=== PATIENT | female | born 1950 | race Caucasian/White ===

== ENCOUNTER 2017-12-17 10:03 | Outpatient (REF) | payer BC, SELFPAY ==
[2017-12-17 20:54] LABS: TSH 0.47 uIU/mL (0.358-3.74)
== END 2017-12-17 10:23 ==
LOC: NCHCN 10:03
PROVIDERS: PCP Physician Assistant Medical; Visit Provider Physician Assistant Medical
DX: E03.9 Hypothyroidism, unspecified (principal)
CPT/HCPCS: 84443

== ENCOUNTER 2018-02-25 18:54 | Outpatient (REF) | payer BC, SELFPAY ==
[2018-02-25 20:38] LABS: Abs Immature Grans 0.01 k/cumm (0.0-0.09); Absolute Basophil Count 0.02 k/cumm (0.0-0.2); Absolute Eosinophil Count 0.17 k/cumm (0.0-0.7); Absolute Lymphocyte Count 2.68 k/cumm (1.2-3.4); Absolute Monocyte Count 0.63 k/cumm (0.11-0.7); Absolute Neutrophil Count 3.42 k/cumm (1.2-6.7); Basophils % 0.3; Eosinophils % 2.5; HCT 39.1 % (36.0-46.0); HGB 12.9 g/dL (12.0-15.5); Immature Grans % 0.1; Lymphocytes % 38.7; Mean Corpuscular Hemoglobin 30.6 pg (27.0-33.0); Mean Corpuscular Volume 92.9 fL (80-95); Mean Platelet Volume 10.2 fL (8.0-11.0); Monocytes % 9.1; Neutrophils % 49.3; Platelet Count 306 x1000/uL (130-400); RBC 4.21 m/cumm (4.00-5.20); RBC Distribution Width 12.3 % (11.7-14.6); White Blood Cell Count 6.93 k/cumm (4.4-10.8)
[2018-02-25 20:51] LABS: ALT 32 U/L (12-78); AST 23 U/L (15-37); Albumin 3.8 g/dL (3.4-5.0); Alkaline Phosphatase 81 U/L (46-116); BUN 10 mg/dL (7-18); Bilirubin, Total 0.3 mg/dL (0.2-1.0); CREATININE 0.74 mg/dL (0.55-1.02); Calcium 9.4 mg/dL (8.5-10.1); Chloride 102 mmol/L (98-107); Glucose 87 mg/dL (70-100); Potassium 3.8 mmol/L (3.5-5.1); Sodium 141 mmol/L (136-145); Total Protein 6.6 g/dL (6.4-8.2)
== END 2018-02-25 19:14 ==
LOC: NCHCN 18:54
PROVIDERS: PCP Physician Assistant Medical; Visit Provider Nurse Practitioner Family
DX: R53.83 Other fatigue (principal); F32.9 Major depressive disorder, single episode, unspecified
CPT/HCPCS: 80053; 85025

== ENCOUNTER 2018-09-15 09:23 | Outpatient (REF) | payer BC, SELFPAY ==
[2018-09-15 20:30] LABS: ALT 26 U/L (12-78); AST 23 U/L (15-37); Anion Gap 7.8 mmol/L (3-11); BUN 9 mg/dL (7-18); CO2 29.2 mmol/L (21.0-32.0); CREATININE 0.63 mg/dL (0.55-1.02); Calcium 9.1 mg/dL (8.5-10.1); Calculated LDL 95; Chloride 100 mmol/L (98-107); Cholesterol 198 mg/dL (50-200); Glucose 84 mg/dL (70-100); HDL Cholesterol 92 mg/dL (40-60); Potassium 3.7 mmol/L (3.5-5.1); Sodium 137 mmol/L (136-145); TSH 0.54 uIU/mL (0.358-3.74); Triglyceride 55 mg/dL (30-150)
[2018-09-15 20:42] LABS: Creatine Kinase 86 U/L (26-192)
== END 2018-09-15 09:43 ==
LOC: NCHCN 09:23
PROVIDERS: PCP Physician Assistant Medical; Visit Provider Nurse Practitioner Family
DX: E03.9 Hypothyroidism, unspecified (principal); R56.9 Unspecified convulsions; E78.5 Hyperlipidemia, unspecified; I10 Essential (primary) hypertension; C43.9 Malignant melanoma of skin, unspecified
CPT/HCPCS: 80048; 80061; 82550; 83721; 84443; 84450; 84460

== ENCOUNTER 2019-09-02 10:21 | Outpatient (REF) | payer BC, SELFPAY ==
[2019-09-02 20:28] LABS: ALT 28 U/L (14-59); AST 25 U/L (15-37); Anion Gap 9.5 mmol/L (3-11); BUN 12 mg/dL (7-18); CO2 27.5 mmol/L (21.0-32.0); CREATININE 0.79 mg/dL (0.55-1.02); Calculated LDL 120 mg/dL (<100); Chloride 102 mmol/L (98-107); Cholesterol 226 mg/dL (<200); Glucose 82 mg/dL (74-106); HDL Cholesterol 93 mg/dL (40-60); Potassium 4.4 mmol/L (3.5-5.1); Sodium 139 mmol/L (136-145); TSH 0.51 uIU/mL (0.36-3.74); Triglyceride 65 mg/dL (<150)
[2019-09-02 20:53] LABS: Creatine Kinase 79 U/L (26-192); Uric Acid 3.6 mg/dL (2.6-6.0)
== END 2019-09-02 10:41 ==
LOC: NCHCN 10:21
PROVIDERS: PCP Physician Assistant Medical; Visit Provider Nurse Practitioner Family
DX: I10 Essential (primary) hypertension (principal); F41.9 Anxiety disorder, unspecified; F32.9 Major depressive disorder, single episode, unspecified; M25.511 Pain in right shoulder; M25.551 Pain in right hip
CPT/HCPCS: 80048; 80061; 82550; 84443; 84450; 84460; 84550

== ENCOUNTER 2019-10-25 11:33 | Outpatient (REF) | payer BC, SELFPAY ==
[2019-10-25 19:55] LABS: ALT 14 U/L (14-59); AST 15 U/L (15-37); HDL Cholesterol 97 mg/dL (40-60); LDL CHOLESTEROL 94 mg/dL (<100)
[2019-10-25 20:06] LABS: Creatine Kinase 59 U/L (26-192)
== END 2019-10-25 11:53 ==
LOC: NCHCN 11:33
PROVIDERS: PCP Physician Assistant Medical; Visit Provider Nurse Practitioner Family
DX: E78.5 Hyperlipidemia, unspecified (principal); I10 Essential (primary) hypertension
CPT/HCPCS: 82550; 83721; 83718; 84450; 84460

== ENCOUNTER 2020-08-17 09:10 | Outpatient (REF) | payer BC, SELFPAY ==
[2020-08-17 15:51] LABS: ALT 22 U/L (14-59); AST 17 U/L (15-37); Anion Gap 8.3 mmol/L (3-11); BUN 8 mg/dL (7-18); CO2 28.7 mmol/L (21.0-32.0); CREATININE 0.8 mg/dL (0.55-1.02); Calcium 8.8 mg/dL (8.5-10.1); Calculated LDL 107 mg/dL (<100); Chloride 101 mmol/L (98-107); Cholesterol 225 mg/dL (<200); Glucose 86 mg/dL (74-106); HDL Cholesterol 108 mg/dL (40-60); Potassium 4.2 mmol/L (3.5-5.1); Sodium 138 mmol/L (136-145); TSH 0.61 uIU/mL (0.36-3.74); Triglyceride 50 mg/dL (<150)
[2020-08-17 16:03] LABS: Creatine Kinase 88 U/L (26-192)
== END 2020-08-17 09:11 | disposition home or self-care (01) ==
LOC: NCHCN 09:10
PROVIDERS: PCP Physician Assistant Medical; Visit Provider Nurse Practitioner Family
DX: E78.5 Hyperlipidemia, unspecified (principal); I10 Essential (primary) hypertension; E03.9 Hypothyroidism, unspecified
CPT/HCPCS: 80048; 80061; 82550; 84443; 84450; 84460

== ENCOUNTER 2020-12-04 15:05 | Outpatient (REF) | payer MEDICARE, SELFPAY | END 2020-12-04 15:06 | disposition home or self-care (01) | LOC: LBN 15:05 | PROVIDERS: PCP Physician Assistant Medical; Visit Provider Nurse Practitioner Family | DX: R10.30 Lower abdominal pain, unspecified (principal) | CPT/HCPCS: 87077; 87086; 87186 ==

== ENCOUNTER 2020-12-04 21:06 | Outpatient (CLI) | payer MEDICARE, SELFPAY ==
[2020-12-04 11:45] LABS: Abs Immature Grans 0.04 10^3/uL (0.0-0.06); Absolute Basophil Count 0.02 10^3/uL (0.0-0.2); Absolute Lymphocyte Count 1.97 10^3/uL (1.2-3.4); Absolute Monocyte Count 0.89 10^3/uL (0.1-0.8); Basophils % 0.2; Eosinophils % 0.6; HCT 38.9 % (36.0-46.0); HGB 12.7 g/dL (11.2-15.7); Immature Grans % 0.4; Lymphocytes % 18.2; MCH 30.5 pg (27.0-33.0); MCHC 32.6 % (32.0-36.0); MCV 93.3 fL (80-95); MPV 9.8 fL (8.0-11.0); Monocytes % 8.2; Neutrophils % 72.4; Nucleated RBC 0 %; Platelet Count 264 10^3/uL (130-400); RBC 4.17 10^6/uL (3.93-5.22); RDW 12.8 % (11.7-14.6); WBC 10.85 10^3/uL (4.4-10.8)
[2020-12-04 11:47] LABS: Absolute Eosinophil Count 0.07 10^3/uL (0.0-0.7); Absolute Neutrophil Count 7.86 10^3/uL (1.2-6.7)
[2020-12-04 12:02] LABS: ALT 22 U/L (14-59); AST 18 U/L (15-37); Albumin 3.5 g/dL (3.4-5.0); Alkaline Phosphatase 82 U/L (46-116); Anion Gap 7.4 mmol/L (3-11); BUN 11 mg/dL (7-18); Bilirubin, Total 1.2 mg/dL (0.2-1.0); CO2 29.6 mmol/L (21.0-32.0); CREATININE 0.8 mg/dL (0.55-1.02); Chloride 102 mmol/L (98-107); Glucose 93 mg/dL (74-106); Potassium 3.5 mmol/L (3.5-5.1); Sodium 139 mmol/L (136-145)
--- NOTE | 2020-12-04 13:44 | DI.CT_ITS ---
Exam(s) CT ABDOMEN PELVIS W EXAM: CT ABDOMEN PELVIS W CLINICAL HISTORY: ABD PAIN LOWER R10.30 DIVERTICULOSIS K57.90. TECHNIQUE: Imaging Protocol: Axial computed tomography images with coronal and sagittal reformatted images were created and reviewed CONTRAST MATERIAL: Intravenous: Omnipaque 350 Contrast volume:100 ml Oral: yes COMPARISON: CT CHEST FOR PE, ABD PELVIS W from 07/02/2017 FINDINGS: ABDOMEN: Lung Bases: Normal where visualized. Liver: Normal density. Innumerable cysts. Gallbladder and biliary tract: No radiodense calculus or dilation. Pancreas: Normal density, no abnormal calcifications or inflammatory process. Spleen: Normal. Kidneys: Normal size, contour and axis. No radiodense stones or obstructive uropathy. Tiny renal cys ts. No masses seen. Adrenal glands: No masses seen. Abdominal Aorta: Abdominal portion non-dilated. PELVIS: Bladder: No gross wall thickening. No calculi.No focal mass. Bowel: The bowel is well opacified with the oral contrast. Diverticulosis is noted of the sigmoid. There is a focal area of wall thickening and surrounding inflammation in the mid to distal sigmoid consistent with diverticulitis. There is no evidence of perforation or abscess. The appendix is nor mal. No small bowel dilatation. Peritoneal cavity: No ascites, collection or mesenteric inflammatory response. Bones: Degenerative changes greatest at L 2 3 and L5-S1. Reproductive organs: Within normal limits. Lymph nodes: Unremarkable. Impression: Sigmoid diverticulitis. No evidence perforation or abscess. RADIATION DOSE DELIVERED: 787.55mGy.cm Total DLP DATA REPOSITORY: All CT scans at this facility are submitted to the National Radiology Data Registry (NRDR) Dose Index Registry (DIR) with the [employer] (ACR). RADIATION OPTIMIZATION: All CT scans at this facility use at least one of these dose optimization te chniques: automated exposure control; mA and/or kV adjustment per patient size (includes targeted exa ms where dose is matched to clinical indication); or iterative reconstruction.
[2020-12-04] MEDS: Omnipaque 350 MG/ML 100 ML BTL IJ (13:48)
[2020-12-04] MEDS: Normal Saline Flush 10 ML SYR IVP (13:50)
[2020-12-04] MEDS: Breeza Beverage 473 ML BTL PO ×2 (13:51→13:52)
[2020-12-04] MEDS: Omnipaque 350 MG/ML 50 ML BTL PO (13:52)
== END 2020-12-04 21:26 ==
PROVIDERS: PCP Physician Assistant Medical; Visit Provider Nurse Practitioner Family
DX: R10.30 Lower abdominal pain, unspecified (principal); K57.90 Diverticulosis of intestine, part unspecified, without perforation or abscess without bleeding; K57.32 Diverticulitis of large intestine without perforation or abscess without bleeding
CPT/HCPCS: 36415; 80053; 74177; 85025; J3490; Q9967

== ENCOUNTER 2020-12-13 15:14 | Outpatient (REF) | payer MEDICARE, SELFPAY ==
[2020-12-13 21:27] LABS: WBC Negative HPF (0-5)
[2020-12-13 21:28] LABS: Bacteria Rare HPF (Negative); C & S Indicated? C&S Done As Ordered; Casts Negative LPF (Negative); Crystals Negative HPF (Negative); Epithelial Cells Rare HPF (Negative); Mucus Negative (Negative)
== END 2020-12-13 15:15 | disposition home or self-care (01) ==
LOC: NCHCN 15:14
PROVIDERS: PCP Physician Assistant Medical; Visit Provider Nurse Practitioner Family
DX: K57.90 Diverticulosis of intestine, part unspecified, without perforation or abscess without bleeding (principal); N39.0 Urinary tract infection, site not specified
CPT/HCPCS: 81015; 87086

== ENCOUNTER 2020-12-28 14:35 | Outpatient (REF) | payer MEDICARE, SELFPAY ==
[2020-12-28 19:54] LABS: Bacteria Negative HPF (Negative); C & S Indicated? C&S Done As Ordered; Crystals Negative HPF (Negative); Epithelial Cells Negative HPF (Negative); Mucus Negative (Negative); WBC Negative HPF (0-5)
== END 2020-12-28 14:36 | disposition home or self-care (01) ==
LOC: NCHCN 14:35
PROVIDERS: PCP Physician Assistant Medical; Visit Provider Nurse Practitioner Family
DX: R31.9 Hematuria, unspecified (principal)
CPT/HCPCS: 81015; 87086

== ENCOUNTER 2021-02-12 15:49 | Outpatient (REF) | payer MEDICARE, SELFPAY ==
[2021-02-18 15:05] LABS: IgA 155 mg/dL (85-499); Interpretation (See Note); Tissue Transglutaminase IgA <1.2 U/mL (<4.0)
== END 2021-02-12 15:50 | disposition home or self-care (01) ==
LOC: NCHCN 15:49
PROVIDERS: PCP Physician Assistant Medical; Visit Provider Nurse Practitioner Family
DX: K57.90 Diverticulosis of intestine, part unspecified, without perforation or abscess without bleeding (principal)
CPT/HCPCS: 82784; 83516

== ENCOUNTER 2021-09-03 15:34 | Outpatient (REF) | payer MEDICARE, SELFPAY ==
[2021-09-03 19:26] LABS: HCT 37.9 % (36.0-46.0); HGB 12.3 g/dL (11.2-15.7); MCH 30.2 pg (27.0-33.0); MCHC 32.5 % (32.0-36.0); MCV 93 fL (80-95); MPV 10.6 fL (8.0-11.0); Platelet Count 245 10^3/uL (130-400); RBC 4.07 10^6/uL (3.93-5.22); RDW 12.7 % (11.7-14.6); RDW-SD 43.9 fL; WBC 7.52 10^3/uL (4.4-10.8)
[2021-09-03 20:00] LABS: ALT 47 U/L (14-59); AST 30 U/L (15-37); Albumin 3.7 g/dL (3.4-5.0); Alkaline Phosphatase 75 U/L (46-116); Anion Gap 11.7 mmol/L (3-11); BUN 14 mg/dL (7-18); Bilirubin, Total 0.6 mg/dL (0.2-1.0); CO2 26.3 mmol/L (21.0-32.0); CREATININE 0.7 mg/dL (0.55-1.02); Calcium 9.3 mg/dL (8.5-10.1); Chloride 103 mmol/L (98-107); Glucose 90 mg/dL (74-106); HDL Cholesterol 99 mg/dL (40-60); LDL CHOLESTEROL 102 mg/dL (<100); Potassium 3.7 mmol/L (3.5-5.1); Sodium 141 mmol/L (136-145); TSH (W/Ref FT4) 0.66 uIU/mL (0.36-3.74); Total Protein 6.1 g/dL (6.4-8.2)
[2021-09-03 20:30] LABS: Creatine Kinase 71 U/L (26-192)
== END 2021-09-03 15:35 | disposition home or self-care (01) ==
LOC: NCHCN 15:34
PROVIDERS: PCP Physician Assistant Medical; Visit Provider Nurse Practitioner Family
DX: E03.9 Hypothyroidism, unspecified (principal); E78.5 Hyperlipidemia, unspecified; M25.551 Pain in right hip
CPT/HCPCS: 80053; 82550; 83721; 85027; 83718; 84443

== ENCOUNTER → 2021-10-28 08:42 | Outpatient (BNVA) | payer MEDICARE, SELFPAY | PROVIDERS: PCP Physician Assistant Medical; Referring Provider Physician Assistant Medical; Visit Provider Psychiatry & Neurology Neurology | DX: I10 Essential (primary) hypertension (principal); G40.209 Localization-related (focal) (partial) symptomatic epilepsy and epileptic syndromes with complex partial seizures, not intractable, without status epilepticus | CPT/HCPCS: 99213 ==

== ENCOUNTER 2022-06-18 12:30 | Outpatient (REF) | payer MEDICARE, SELFPAY ==
[2022-06-18 17:34] LABS: Anion Gap 5.8 mmol/L (3-11); BUN 10 mg/dL (7-18); CO2 29.2 mmol/L (21.0-32.0); CREATININE 0.7 mg/dL (0.55-1.02); Calcium 8.9 mg/dL (8.5-10.1); Chloride 107 mmol/L (98-107); Estimated GFR 93.56 (mL/min/1.73m2); Glucose 86 mg/dL (74-106); Potassium 3.9 mmol/L (3.5-5.1); Sodium 142 mmol/L (136-145)
== END 2022-06-18 12:31 | disposition home or self-care (01) ==
LOC: NCHCN 12:30
PROVIDERS: PCP Physician Assistant Medical; Visit Provider Nurse Practitioner Family
DX: I10 Essential (primary) hypertension (principal)
CPT/HCPCS: 80048

== ENCOUNTER 2022-09-19 13:50 | Outpatient (REF) | payer MEDICARE, SELFPAY ==
[2022-09-19 15:46] LABS: Anion Gap 8.3 mmol/L (3-11); BUN 12 mg/dL (7-18); CO2 27.7 mmol/L (21.0-32.0); CREATININE 0.7 mg/dL (0.55-1.02); Calcium 8.7 mg/dL (8.5-10.1); Calculated LDL 110 mg/dL (<100); Chloride 104 mmol/L (98-107); Cholesterol 218 mg/dL (<200); Estimated GFR 92.98 (mL/min/1.73m2); Glucose 86 mg/dL (74-106); HDL Cholesterol 99 mg/dL (40-60); Potassium 3.7 mmol/L (3.5-5.1); Sodium 140 mmol/L (136-145); TSH 0.68 uIU/mL (0.36-3.74); Triglyceride 48 mg/dL (<150)
[2022-09-19 18:01] LABS: FREE T4 1.13 ng/dL (0.76-1.46)
== END 2022-09-19 13:51 | disposition home or self-care (01) ==
LOC: NCHCN 13:50
PROVIDERS: PCP Physician Assistant Medical; Visit Provider Nurse Practitioner Family
DX: I10 Essential (primary) hypertension (principal); E03.9 Hypothyroidism, unspecified; E78.5 Hyperlipidemia, unspecified
CPT/HCPCS: 80048; 80061; 84439; 84443

== ENCOUNTER → 2022-11-04 09:12 | Outpatient (BNVA) | payer MEDICARE, SELFPAY | PROVIDERS: PCP Physician Assistant Medical; Visit Provider Psychiatry & Neurology Neurology | DX: G40.209 Localization-related (focal) (partial) symptomatic epilepsy and epileptic syndromes with complex partial seizures, not intractable, without status epilepticus (principal); I10 Essential (primary) hypertension | CPT/HCPCS: 99212 ==

== ENCOUNTER 2022-12-22 13:30 | Outpatient (REF) | payer MEDICARE, SELFPAY ==
[2022-12-22 18:03] LABS: FREE T4 1.13 ng/dL (0.76-1.46)
== END 2022-12-22 13:31 | disposition home or self-care (01) ==
LOC: NCHCN 13:30
PROVIDERS: PCP Physician Assistant Medical; Visit Provider Nurse Practitioner Family
DX: E03.9 Hypothyroidism, unspecified (principal)
CPT/HCPCS: 84439; 84443

== ENCOUNTER 2023-03-04 13:28 | Outpatient (REF) | payer MEDICARE, SELFPAY ==
--- OUTSIDE RECORDS SUMMARY | 2023-03-04 13:30 | XMS_ITS | Continuity of Care Document ---
Author Name Unknown Organization [facility] Ambulatory Clinics Address [address] [place] [address] Care Team Providers Care Business Services Analyst Name Role Phone KENYONRAMO Leos Deric Primary Care Physician Encounter [facility] NBR [id number] Date(s): 10/23/22 - 10/23/22 [facility] Ambulatory Clinics [address], [place] [address] Encounter Diagnosis Diverticulitis(Discharge Diagnosis) - 10/23/22 Discharge Disposition: Home or Self Care Attending Physician: Luisa Melgoza PA-C Allergies, Adverse Reactions, Alerts Substance Reaction Severity Status naproxen Unknown Active LaMICtal Unknown Active Medications amoxicillin-clavulanate 875 mg-125 mg oral tablet 1 tab, Oral, every 12 hr, with food or milk, # 14 tab, 0 Refill(s), Pharmacy: [facility] Start Date: 10/23/22 Stop Date: 10/30/22 Status: Ordered atorvastatin 10 mg oral tablet 0 Refill(s) Start Date: 10/23/22 Status: Ordered FLUoxetine 40 mg oral capsule 40 mg = 1 cap, Oral, Daily, # 30 cap, 0 Refill(s) Start Date: 10/23/22 Status: Ordered levETIRAcetam 500 mg oral tablet 0 Refill(s) Start Date: 10/23/22 Status: Ordered levothyroxine 50 mcg (0.05 mg) oral tablet 0 Refill(s) Start Date: 10/23/22 Status: Ordered lisinopril 10 mg oral tablet 0 Refill(s) Start Date: 10/23/22 Status: Ordered Vital Signs Most recent to oldest [Reference Range]: 1 Temperature Tympanic [36.6-37.9 Deg C] 3 6.6 Deg C (10/23/22 2:07 PM) Peripheral Pulse Rate [60-100 bpm] 79 bp m (10/23/22 2:07 PM) Blood Pressure [90-140/60-90 mmHg] 123/8 1mmHg (10/23/22 2:07 PM) Weight 58.06 kg (10/23/22 2:07 PM) Weight Measured (lbs) 128 lb (10/23/22 2:07 PM) Height 165.10 cm (10/23/22 2:07 PM) Height/Length Measured (inches) 65 inch (10/23/22 2:07 PM) BSA Measured 1.63 m2 (10/23/22 2:07 PM) Body Mass Index 21.3 kg/m2 (10/23/22 2:07 PM) Social History Social History Type Response Tobacco Never tobacco user T obacco Use:. Sex Hospital Discharge Instructions Patient Education 10/23/2022 13:50:47 Diverticulitis Diverticulitis Diverticulitis is infection or inflammation of small pouches (diverticula) in the colon that form due to a condition called diverticulosis. Diverticula can trap stool (feces) and bacteria, causing infection and inflammation. Diverticulitis may cause severe stomach pain and diarrhea. It may lead to tissue damage in the colon that causes bleeding or blockage. The diverticula may also burst (rupture) and cause infected stool to enter other areas of the abdomen. What are the causes? This condition is caused by stool becoming trapped in the diverticula, which allows bacteria to grow in the diverticula. This leads to inflammation and infection. What increases the risk? You are more likely to develop this condition if you have diverticulosis. The risk increases if you: ??? Are overweight or obese. ??? Do not get enough exercise. ??? Drink alcohol. ??? Use tobacco products. ??? Eat a diet that has a lot of red meat such as beef, pork, or loera. ??? Eat a diet that does not include enough fiber. High-fiber foods include fruits, vegetables, beans, nuts, and whole grains. ??? Are over 40 years of age. What are the signs or symptoms? Symptoms of this condition may include: ??? Pain and tenderness in the abdomen. The pain is normally located on the left side of the abdomen, but it may occur in other areas. ??? Fever and chills. ??? Nausea. ??? Vomiting. ??? Cramping. ??? Bloating. ??? Changes in bowel routines. ??? Blood in your stool. How is this diagnosed? This condition is diagnosed based on: ??? Your medical history. ??? A physical exam. ??? Tests to make sure there is nothing else causing your condition. These tests may include: ??? Blood tests. ??? Urine tests. ??? CT scan of the abdomen. How is this treated? Most cases of this condition are mild and can be treated at home. Treatment may include: ??? Taking utjg-plz-zluzyci pain medicines. ??? Following a clear liquid diet. ??? Taking antibiotic medicines by mouth. ??? Resting. More severe cases may need to be treated at a hospital. Treatment may include: ??? Not eating or drinking. ??? Taking prescription pain medicine. ??? Receiving antibiotic medicines through an IV. ??? Receiving fluids and nutrition through an IV. ??? Surgery. When your condition is under control, your health care provider may recommend that you have a colonoscopy. This is an exam to look at the entire large intestine. During the exam, a lubricated, bendable tube is inserted into the anus and then passed into the rectum, colon, and other parts of the large intestine. A colonoscopy can show how severe your diverticula are and whether something else may be causing your symptoms. Follow these instructions at home: Medicines ??? Take pcjl-all-vvfiobt and prescription medicines only as told by your health care provider. These include fiber supplements, probiotics, and stool softeners. ??? If you were prescribed an antibiotic medicine, take it as told by your health care provider. Donot stop taking the antibiotic even if you start to feel better. ??? Ask your health care provider if the medicine prescribed to you requires you to avoid driving or using machinery. Eating and drinking ??? Follow a full liquid diet or another diet as directed by your health care provider. ??? After your symptoms improve, your health care provider may tell you to change your diet. He or she may recommend that you eat a diet that contains at least 25 grams (25 g) of fiber daily. Fiber makes it easier to pass stool. Healthy sources of fiber include: ??? Berries. One cup contains 4???8 grams of fiber. ??? Beans or lentils. One-half cup contains 5???8 grams of fiber. ??? Green vegetables. One cup contains 4 grams of fiber. ??? Avoid eating red meat. General instructions ??? Do not use any products that contain nicotine or tobacco, such as cigarettes, e-cigarettes, andchewing tobacco. If you need help quitting, ask your health care provider. ??? Exercise for at least 30 minutes, 3 times each week. You should exercise hard enough to raise your heart rate and break a sweat. ??? Keep all follow-up visits as told by your health care provider. This is important. You may needto have a colonoscopy. Contact a health care provider if: ??? Your pain does not improve. ??? Your bowel movements do not return to normal. Get help right away if: ??? Your pain gets worse. ??? Your symptoms do not get better with treatment. ??? Your symptoms suddenly get worse. ??? You have a fever. ??? You vomit more than one time. ??? You have stools that are bloody, black, or tarry. Summary ??? Diverticulitis is infection or inflammation of small pouches (diverticula) in the colon that form due to a condition called diverticulosis. Diverticula can trap stool (feces) and bacteria, causing infection and inflammation. ??? You are at higher risk for this condition if you have diverticulosis and you eat a diet that does not include enough fiber. ??? Most cases of this condition are mild and can be treated at home. More severe cases may need aylin treated at a hospital. ??? When your condition is under control, your health care provider may recommend that you have an exam called a colonoscopy. This exam can show how severe your diverticula are and whether something else may be causing your symptoms. ??? Keep all follow-up visits as told by your health care provider. This is important. This information is not intended to replace advice given to you by your health care provider. Make sure you discuss any questions you have with your health care provider. Document Revised: 12/26/2019 Document Reviewed: 12/26/2019 Elsevier Patient Education ?? 2022 [employer] Physician Outpatient Note * Luisa Melgoza PA-C: PERFORM Luisa Melgoza PA-C: PERFORM Event Display: Office Clinic Note Physician Authored Date: [id number] HUSSAIN BAY :1950 Age:72 years Sex:Female Visit Date:10/23/2022 Primary Care Physician: RAMO RUDOLPH Chief Complaint lower left abdominal pain started a few days ago. ??History of diverticulitis. History of Present Illness 72 y/o female with h/o diverticulitis presents to with 3 days of worsening LLQ pain. Pt states she was originally dx with diverticulitis last November via CT scan at [facility]. Was tx with abx and it resolved. In January of 2022 she had another episode of diverticulitis that required abx. She has since had no symptoms and reports she had a colonoscopy that was unremarkable. She denies fever, chills, or myalgias. No sweats. Denies n/v/d. Denies blood in stool. States she feels more constipated than usual, but is moving bowels. She reports she started herself on clear liquids yesterday and today she noticed her LLQ pain seemed worse, especially when driving in the car and going over bumps. She reports she is very meticulous over her diet and usually eats high fiber to prevent diverticulitisflares, however she hasn't been as careful over the past month or two. She has??not taken any medication??for the pain.??Denies hx of abdominal surgery. Pt states this feels exactly like how my flare up started 8 months ago. Review of Systems Constitutional:?No??fevers,?No??chills,?No??sweats Eye:?No??recent visual problems ENT:?No??ear pain,?No??nasal congestion,?No??sore throat Respiratory:?No??shortness of breath,?No??cough Cardiovascular:?No??Chest pain,?No??palpitations,?No??syncope Gastrointestinal:?Nonausea,?No??vomiting,?No??diarrhea Positive for pain to LLQ, reports having a harder time moving bowels than usual Genitourinary:?No??hematuria Satish/Lymph:?No??bruising tendency,?No??swollen lymph glands Endocrine:?No??excessive thirst,??No??excessive hunger Musculoskeletal:??No??back pain,??No??neck pain,??No??joint pain,??No??muscle pain,??No??decreased range of motion Integumentary:?No??rash,?No??pruritus,?No??abrasions Neurologic: Alert & oriented X 4 Physical Exam Vitals & Measurements T:??36.6?C ??(Tympanic)?? HR:??79??(Peripheral)?? BP:??123/81?? SpO2:??98%?? HT:??165.10??cm?? WT:??58.06??kg?? BMI:??21.3?? Pain Score:??5?? BSA:??1.63?? General: Alert and oriented, well nourished,?No??acute distress Non-toxic in appearance Eye:?Normal?conjunctiva HENT: Normocephalic Normal? hearing, moist oral mucosa,?No??scleral icterus,? Lungs:??Clear to auscultation?? Respiration:??Non-Labored Heart:?Normal? rate,?Regular??rhythm,?No??murmur,?No??gallop,?No??edema Abdomen: Soft, non-distended. Pain with palpation to LLQ ??Normal? bowel sounds x 4 ?No??masses Musculoskeletal:?Normal? range of motion and strength,?No??tenderness,?No??swelling Skin: Skin is warm, dry and pink,?No??rashes,?No??lesions Neurologic: Awake, alert and oriented X4, CN II-XII grossly??intact Psychiatric: Cooperative, appropriate mood and affect, excellent historian Medical Decision Makin72 y/o female with known hx diverticulitis/diverticulosis presents with 3 days of worsening LLQ pain despite dietary change to clear liquids. Will treat with abx due to known history of diverticulitis and no improvement in symptoms despite clear diet. Return precautions reviewed with pt and recommended that if sx do not improve within 2 days on abx, or if she develops vomiting, bloody stool, or becomes febrile she should go to the ED for further eval and imaging. The pt verb understanding and is agreeable to POC. Recommended she f/u with her PCP and GI if needed. Assessment/Plan 1.??Diverticulitis??K57.92 Patient Instructions Start the Augmentin twice a day for next 7 days. You should see improvement within 2 days of starting the antibiotics. Please be seen in the emergency department if develop any fever, severe worsening abdominal pain, vomiting or bloody diarrhea. Patient Education Diverticulitis Problem List/Past Medical History Ongoing No qualifying data Historical No qualifying data Medications amoxicillin-clavulanate 875 mg-125 mg oral tablet, 1 tab, Oral, every 12 hr atorvastatin 10 mg oral tablet FLUoxetine 40 mg oral capsule, 40 mg= 1 cap, Oral, Daily levETIRAcetam 500 mg oral tablet levothyroxine 50 mcg (0.05 mg) oral tablet lisinopril 10 mg oral tablet Allergies LaMICtal naproxen Social History Electronic Cigarette/Vaping Electronic Cigarette Use: Never. Tobacco Never tobacco user Tobacco Use:. Electronically Signed on 10/23/22 09:03 PM Luisa Melgoza PA-C Electronically Signed on 10/23/22 03:07 PM [facility] Outpatient Summary note * Luisa Melgoza PA-C: PERFORM Event Display: Ambulatory Patient Summary Authored Date: [id number] HUSSAIN BAY :1950 Age:72 years Sex:Female Visit Date:10/23/2022 Primary Care Physician: RAMO RUDOLPH Ambulatory Visit Instructions We would like to thank you for allowing us to assist you with your healthcare needs. The following includes patient education materials and information regarding your injury/illness. Your Next Steps Instructions From Your Care Team Start the Augmentin twice a day for next 7 days. You should see improvement within 2 days of starting the antibiotics. Please be seen in the emergency department if develop any fever, severe worsening abdominal pain, vomiting or bloody diarrhea. Medications What How Much When Why Instructions New amoxicillin-clavulanate (amoxicillin- clavulanate 875 mg-125mg oral tablet) 1 tab Oral (given by mouth) Every 12 hours Diverticulitis Duration: 7 Days with food or milk ?? Pickup at [facility] Unchanged atorvastatin (atorvastatin 10 mg oral tablet) Unchanged FLUoxetine (FLUoxetine 40 mg oral capsule) 1 Capsules Oral (given by mouth) Every day Unchanged levETIRAcetam (levETIRAcetam 500 mg oral tablet) Unchanged levothyroxine (levothyroxine 50 mcg (0.05 mg) oral tablet) Unchanged lisinopril (lisinopril 10 mg oral tablet) Pharmacy Information [facility]: [address] [place] [address] [phone] Your Summary Your Diagnosis Diverticulitis Your Care Team Attending Physician - Luisa Melgoza PA-C Primary Care Physician - RAMO RUDOLPH Discharge Vitals Temperature??(Tympanic) 97.9 ??F (36.6 ??C) Heart Rate??(Peripheral) 79 Blood Pressure?? 123/81?? Height?? 65.00 in (165.10 cm) Weight?? 128.02 lb (58.06 kg) BMI?? 21.3 Allergies LaMICtal naproxen Education Materials Diverticulitis Diverticulitis is infection or inflammation of small pouches (diverticula) in the colon that form due to a condition called diverticulosis. Diverticula can trap stool (feces) and bacteria, causing infection and inflammation. Diverticulitis may cause severe stomach pain and diarrhea. It may lead to tissue damage in the colon that causes bleeding or blockage. The diverticula may also burst (rupture) and cause infected stool to enter other areas of the abdomen. What are the causes? This condition is caused by stool becoming trapped in the diverticula, which allows bacteria to grow in the diverticula. This leads to inflammation and infection. What increases the risk? You are more likely to develop this condition if you have diverticulosis. The risk increases if you: ? Are overweight or obese. ? Do not get enough exercise. ? Drink alcohol. ? Use tobacco products. ? Eat a diet that has a lot of red meat such as beef, pork, or loera. ? Eat a diet that does not include enough fiber. High-fiber foods include fruits, vegetables, beans, nuts, and whole grains. ? Are over 40 years of age. What are the signs or symptoms? Symptoms of this condition may include: ? Pain and tenderness in the abdomen. The pain is normally located on the left side of the abdomen, but it may occur in other areas. ? Fever and chills. ? Nausea. ? Vomiting. ? Cramping. ? Bloating. ? Changes in bowel routines. ? Blood in your stool. How is this diagnosed? This condition is diagnosed based on: ? Your medical history. ? A physical exam. ? Tests to make sure there is nothing else causing your condition. These tests may include: ? Blood tests. ? Urine tests. ? CT scan of the abdomen. How is this treated? Most cases of this condition are mild and can be treated at home. Treatment may include: ? Taking dyzh-tuj-lgnionj pain medicines. ? Following a clear liquid diet. ? Taking antibiotic medicines by mouth. ? Resting. More severe cases may need to be treated at a hospital. Treatment may include: ? Not eating or drinking. ? Taking prescription pain medicine. ? Receiving antibiotic medicines through an IV. ? Receiving fluids and nutrition through an IV. ? Surgery. When your condition is under control, your health care provider may recommend that you have a colonoscopy. This is an exam to look at the entire large intestine. During the exam, a lubricated, bendable tube is inserted into the anus and then passed into the rectum, colon, and other parts of the large intestine. A colonoscopy can show how severe your diverticula are and whether something else may be causing your symptoms. Follow these instructions at home: Medicines ? Take nbrg-bal-fchhrbq and prescription medicines only as told by your health care provider. These include fiber supplements, probiotics, and stool softeners. ? If you were prescribed an antibiotic medicine, take it as told by your health care provider. Do notstop taking the antibiotic even if you start to feel better. ? Ask your health care provider if the medicine prescribed to you requires you to avoid driving or using machinery. Eating and drinking ? Follow a full liquid diet or another diet as directed by your health care provider. ? After your symptoms improve, your health care provider may tell you to change your diet. He or she may recommend that you eat a diet that contains at least 25 grams (25 g) of fiber daily. Fiber makesit easier to pass stool. Healthy sources of fiber include: ? Berries. One cup contains 4???8 grams of fiber. ? Beans or lentils. One-half cup contains 5???8 grams of fiber. ? Green vegetables. One cup contains 4 grams of fiber. ? Avoid eating red meat. General instructions ? Do not use any products that contain nicotine or tobacco, such as cigarettes, e- cigarettes, and chewing tobacco. If you need help quitting, ask your health care provider. ? Exercise for at least 30 minutes, 3 times each week. You should exercise hard enough to raise your heart rate and break a sweat. ? Keep all follow-up visits as told by your health care provider. This is important. You may need to have a colonoscopy. Contact a health care provider if: ? Your pain does not improve. ? Your bowel movements do not return to normal. Get help right away if: ? Your pain gets worse. ? Your symptoms do not get better with treatment. ? Your symptoms suddenly get worse. ? You have a fever. ? You vomit more than one time. ? You have stools that are bloody, black, or tarry. Summary ? Diverticulitis is infection or inflammation of small pouches (diverticula) in the colon that form due to a condition called diverticulosis. Diverticula can trap stool (feces) and bacteria, causing infection and inflammation. ? You are at higher risk for this condition if you have diverticulosis and you eat a diet that does not include enough fiber. ? Most cases of this condition are mild and can be treated at home. More severe cases may need to be treated at a hospital. ? When your condition is under control, your health care provider may recommend that you have an examcalled a colonoscopy. This exam can show how severe your diverticula are and whether something elsemay be causing your symptoms. ? Keep all follow-up visits as told by your health care provider. This is important. This information is not intended to replace advice given to you by your health care provider. Make sure you discuss any questions you have with your health care provider. Document Revised: 12/26/2019 Document Reviewed: 12/26/2019 [employer] Patient Education ?? 2022 [employer] Electronically Signed on: 10/23/2022 14:51 EDTSigned by: Patient Care team information Care Team Personnel Name: RAMO RUDOLPH Position: No Access Member Role: Primary Care Physician Address: Address: [address] [place] [address]- Care Team Related Persons Name: KESHA BAY
--- OUTSIDE RECORDS SUMMARY | 2023-03-04 13:30 | XMS_ITS | Continuity of Care Document ---
Author Name Unknown Organization [facility] Address [address] [place] [address] Care Team Providers Care Datacap Developer Name Role Phone RAMO RUDOLPH Primary Care Physician Encounter [facility] NBR [id number] Date(s): 03/18/22 - 03/18/[address] [address]- [place] Discharge Disposition: Home or Self Care Attending Physician: RAMO RUDOLPH Admitting Physician: RAMO RUDOLPH Referring Physician: RAMO RUDOLPH Results Radiology Reports * Exam Date Time Procedure Performing Provider Status 03/18/22 8:46 AM MG Mammo Screening Bilateral DomainUs er, Generated; Auth (Verified) Notes: (MG Mammo Screening Bilateral) Reason For Exam: z12.31 MG Mammo Screening Bilateral EXAM DESCRIPTION: MG Mammo Screening Bilateral 03/18/2022 INDICATION: Z12.31 RISK FACTOR: The patient may be at increased breast cancer risk based on Fiona risk model COMPARISON: Prior studies most recently dated 03/15/2021 and 02/08/2020 BREAST DENSITY: There are scattered areas of fibroglandular density. FINDINGS: MLO and CC views were performed with digital breast tomosynthesis. Images were reviewed using computer aided detection. No asymmetry, architectural distortion or suspicious grouping of calcifications to suggest malignancy in either breast. ASSESSMENT: No mammographic evidence of malignancy. Negative. BI-RADS category 1. RECOMMENDATION: Screening mammography in 1 year JOB #: [id number] Final Signed by: Charles Miranda MD Signed (Electronic Signature): 03/18/2022 9:03 am MG Breast - bilateral Screening * Charles Miranda MD: VERIFY, VERIFY Event Display: Report EXAM DESCRIPTION: MG Mammo Screening Bilateral 03/18/2022 INDICATION: Z12.31 RISK FACTOR: The patient may be at increased breast cancer risk based on Fiona risk model COMPARISON: Prior studies most recently dated 03/15/2021 and 02/08/2020 BREAST DENSITY: There are scattered areas of fibroglandular density. FINDINGS: MLO and CC views were performed with digital breast tomosynthesis. Images were reviewed using computer aided detection. No asymmetry, architectural distortion or suspicious grouping of calcifications to suggest malignancy in either breast. ASSESSMENT: No mammographic evidence of malignancy. Negative. BI-RADS category 1. RECOMMENDATION: Screening mammography in 1 year JOB #: [id number] Final Signed by: Charles Miranda MD Signed (Electronic Signature): 03/18/2022 9:03 am Patient Care team information Personnel Name: RAMO RUDOLPH Address: Address: [address] [place] [address]
--- OUTSIDE RECORDS SUMMARY | 2023-03-04 13:30 | XMS_ITS | Continuity of Care Document ---
Author Name Unknown Organization [facility] Address [address] [place] [address] Care Team Providers Care Travel Registered Nurse Oncology Name Role Phone KENYONRAMO Leos Deric Primary Care Physician [phone] Encounter [facility] NBR [id number] Date(s): 01/19/23 - 01/19/23 [facility] [address] [place], [place] [address] Discharge Disposition: Home Allergies, Adverse Reactions, Alerts Substance Reaction Severity Status naproxen Unknown Active LaMICtal Unknown Active Medications amoxicillin-clavulanate 875 mg-125 mg oral tablet 1 tab, Oral, every 12 hr, with food or milk, # 14 tab, 0 Refill(s), Pharmacy: [facility] Start Date: 10/23/22 Stop Date: 10/30/22 Status: Ordered atorvastatin 10 mg oral tablet 0 Refill(s) Start Date: 10/23/22 Status: Ordered cephalexin 500 mg oral capsule 2,000 mg = 4 cap, Oral, Once, take 4 capsules orally one hour prior to dental appt, # 12 cap, 0 Refill(s), Pharmacy: [facility] Start Date: 01/19/23 Status: Ordered FLUoxetine 40 mg oral capsule 40 mg = 1 cap, Oral, Daily, # 30 cap, 0 Refill(s) Start Date: 10/23/22 Status: Ordered levETIRAcetam 500 mg oral tablet 0 Refill(s) Start Date: 10/23/22 Status: Ordered levothyroxine 50 mcg (0.05 mg) oral tablet 0 Refill(s) Start Date: 10/23/22 Status: Ordered lisinopril 10 mg oral tablet 0 Refill(s) Start Date: 10/23/22 Status: Ordered Social History Social History Type Response Tobacco Never tobacco user T obacco Use:. Sex Patient Care team information Care Team Personnel Name: RAMO RUDOLPH Position: No Access Member Role: Primary Care Physician Address: Address: [address] [place] [address]- Care Team Related Persons Name: KESHA BAY
[2023-03-04 15:32] LABS: FREE T4 0.99 ng/dL (0.76-1.46); TSH 1.71 uIU/mL (0.36-3.74)
== END 2023-03-04 13:29 | disposition home or self-care (01) ==
LOC: NCHCN 13:28
PROVIDERS: PCP Physician Assistant Medical; Visit Provider Nurse Practitioner Family
DX: E03.9 Hypothyroidism, unspecified (principal)
CPT/HCPCS: 84439; 84443

== ENCOUNTER 2023-06-04 09:04 | Outpatient (REF) | payer MEDICARE, SELFPAY ==
[2023-06-04 16:06] LABS: FREE T4 1.11 ng/dL (0.76-1.46); TSH 1.69 uIU/Ml (0.36-3.74)
== END 2023-06-04 09:05 | disposition home or self-care (01) ==
LOC: NCHCN 09:04
PROVIDERS: PCP Physician Assistant Medical; Visit Provider Nurse Practitioner Family
DX: E03.9 Hypothyroidism, unspecified (principal)
CPT/HCPCS: 84439; 84443

== ENCOUNTER → 2023-07-28 14:15 | Outpatient (BNVA) | payer MEDICARE, SELFPAY | PROVIDERS: PCP Nurse Practitioner Family; Referring Provider Nurse Practitioner Family; Visit Provider Podiatrist | DX: Q82.8 Other specified congenital malformations of skin (principal); L84 Corns and callosities; B35.1 Tinea unguium; L60.3 Nail dystrophy; M79.671 Pain in right foot | CPT/HCPCS: 17110; 99213 ==

== ENCOUNTER → 2023-11-03 09:13 | Outpatient (BNVA) | payer MEDICARE, SELFPAY | PROVIDERS: PCP Nurse Practitioner Family; Referring Provider Nurse Practitioner Family; Visit Provider Psychiatry & Neurology Neurology | DX: G40.209 Localization-related (focal) (partial) symptomatic epilepsy and epileptic syndromes with complex partial seizures, not intractable, without status epilepticus (principal) | CPT/HCPCS: 99213 ==

== ENCOUNTER 2023-12-28 15:05 | Outpatient (REF) | payer MEDICARE, SELFPAY ==
--- OUTSIDE RECORDS SUMMARY | 2023-12-28 15:08 | XMS_ITS | Encounter Summary ---
Author Organization [facility] Address [address] [place] [address] Care Team Providers Care Pony Cylinder Press Operator Name Role Phone Terssa Saunders NP Primary Care Provider [phone] Encounter Details Date Type Department Care Team (Late st Contact Info) Description 02/13/2021 Lab Requisition [facility] Pathology & Laboratory Medicine - [address] [address] Outr Resulting Lab, Provider Social History Tobacco Use Types Packs/Day Years Used Date Smoking Tobacco: Never Assessed Interpersonal Safety Answer Date Record ed Physically Hurt Never 10/30/2019 Verbally Threaten Not on file 10/30/2019 Sex and Gender Information Value Date Recorded Sex Assigned at Not on file Gender Identity Not on file Sexual Orientation Not on file documented as of this encounter Plan of Treatment Not on file documented as of this encounter Procedures Procedure Name Priority Date/Time Associated Diagnosis Comments CELIAC DISEASE PANEL Routine 02/12/2021 15:25 EST documented in this encounter Results * CELIAC DISEASE PANEL (02/12/2021 15:25 EST) Tissue Transglutaminase Antibody IGA <1.2 <4.0 U/mL 02/18/2021 15:00 EST [facility] Comment: A negative result may be due to IgA deficiency and does not rule out celiac disease. ? Negative: ??<4.0 U/mL ? Weak Positive: ??4.0 - 10.0 U/mL ? Positive: ??>10.0 U/mL Results were obtained with the [employer] QUANTA Lite R h-tTG IgA BRIAN assay on the [employer] DSX. IgA 155 85 - 499 mg/dL 02/18/2021 15:00 EST [facility] Celiac Disease Interpretation Negative Serology. Celiac disease unlikely. Approximately 10% of patients with celiac disease are seronegative. Patients who are already adhering to a gluten-free diet may also be seronegative. If celiac disease is highly clinically suspected, referral to gastroenterology for additional evaluation is recommended. 02/18/2021 15:00 EST [facility] Blood VENOUS BLOOD / Unknown 02/12/2021 15:25 EST 02/13/2021 16:15 EST Provider Outr Resulting Lab IMMUNOLOGY A ND SEROLOGY ORDERABLES Performing Organization Address City/State/[facility] Co de Phone Number [facility] [address] [place] [address] documented in this encounter Visit Diagnoses Not on filedocumented in this encounter Care Teams Pony Cylinder Press Operator Relationship Specialty Start Date End Date Tressa Saunders NP [facility] [address] [place] [address] PCP - General 05/16/09 documented as of this encounter
--- OUTSIDE RECORDS SUMMARY | 2023-12-28 15:08 | XMS_ITS | Encounter Summary ---
Author Organization [facility] Address [address] [place] [address] Care Team Providers Care Lipstick Molder Name Role Phone Tressa Saunders NP Primary Care Provider [phone] Encounter Details Date Type Department Care Team (Late st Contact Info) Description 10/15/2005 Results Only [facility] - Maple conversion [address] [place] [address] Shana Davis NP Social History Tobacco Use Types Packs/Day Years Used Date Smoking Tobacco: Never Assessed Sex and Gender Information Value Date Recorded Sex Assigned at Not on file Gender Identity Not on file Sexual Orientation Not on file documented as of this encounter Plan of Treatment Not on file documented as of this encounter Procedures Procedure Name Priority Date/Time Associated Diagnosis Comments HPV DETECTION, HIGH RISK TYPES Routine 10/15/2005 16:30 EDT CYTOPATHOLOGY Routine 10/15/2005 0:00 EDT documented in this encounter Results * HUMAN PAPILLOMA VIRUS DNA TEST (10/15/2005 16:30 EDT) Specimen Description Cervix, ThinPrep vial [facility] Result Negative for HPV types 16, 18, 31, 33, 35, 39, 45, 51, 52, 56, 58, 59, and 68. [facility] Report Status Final [id number] [facility] 10/15/2005 16:3 0 EDT 10/23/2005 10:26 EDT Shana Davis NP MICROBIOLOGY - GENER AL ORDERABLES [facility] [address] [place] [address] * CYTOPATHOLOGY (10/15/2005 0:00 EDT) Pathology Report: CYTOPATHOLOGY REPORT Reports generated via electronic interface contain original data; however they are lacking the format of the original report. Caution should be taken when reading/interpreti ng unformatted reports. Name: ? HUSSAIN DASILVA ? Accession #: ? [id number] : ? 1950 (Age: 55) ??F ?Collect Date: ? 10/15/2005 Location: ? [facility] ? Receive Date: ? 10/17/2005 Provider: ?SHANA DAVIS NP Copy to: ? Specimen/Source: ?ThinPrep Pap Test, Cervix/Endocervix, processed on [employer] ThinPrep Imaging System, with manual evaluation Last Menstrual Period: ? 04/23/01 Previous Gynecologic Pathology: ? Benign cellular changes: 2001 Other: ? HPVA - HPV testing requested if ASC-US on the current ThinPrep Pap test. ? SPECIMEN ADEQUACY ? Satisfactory for Evaluation - transformation zone component present GENERAL CATEGORIZATION ? Epithelial Cell Abnormality INTERPRETATION ? Squamous Cell Abnormality - Atypical squamous cells, undetermined significance. Endometrial cells present in a women equal to or greater than age 40. EDUCATIONAL NOTES/RECOMMENDATI ONS ? [facility] recommends following the 2001 Consensus Guidelines for the Management of Women with Cervical Cytological Abnormalities (CHRISTO,2002;287:212 0-9). Management algorithms have been distributed by [facility] and are available online at www.ASCCP.org. Benign appearing endometrial cells on Pap tests are usually a normal finding in women with regular menstrual cycles, especially if the Pap test was collected during the first half of the menstrual cycle. There is data showing that endometrial cells on Pap tests may be associated with endometrial/uterin e abnormalities in post menopausal women or in perimenopausal women with abnormal bleeding. There is limited data on the significance of benign endometrial cells in post menopausal women on HRT. ??Clinical correlation is recommended. Note: ??The Pap test is not an accurate test for the screening of endometrial lesions and should not be used as a follow up in patients with clinical suspicion of endometrial pathology. ? Document reviewed and electronically signed by: ? Troy Arreguin MD ? Report Date: ??10/22/2005 15:25 End of Report [facility] 10/15/2005 10/17/2005 Shana Davis NP PATHOLOGY ORDERABLES Performing Organization Address City/State/[facility] Co de Phone Number [facility] [address] [place] [address] documented in this encounter Visit Diagnoses Not on filedocumented in this encounter Care Teams Lipstick Molder Relationship Specialty Start Date End Date Tressa Saunders NP [facility] [address] [place] [address] PCP - General 05/16/09 documented as of this encounter
--- OUTSIDE RECORDS SUMMARY | 2023-12-28 15:08 | XMS_ITS | Encounter Summary ---
Author Organization [facility] Address [address] [place] [address] Care Team Providers Care Acquisition Consultant Name Role Phone Tressa Saunders NP Primary Care Provider [phone] Encounter Details Date Type Department Care Team (Late st Contact Info) Description 11/20/2005 Results Only [facility] - Maple conversion [address] [place] [address] Amy Covarrubias MD [address] [place] [address] [place] [address] Social History Tobacco Use Types Packs/Day Years Used Date Smoking Tobacco: Never Assessed Sex and Gender Information Value Date Recorded Sex Assigned at Not on file Gender Identity Not on file Sexual Orientation Not on file documented as of this encounter Plan of Treatment Not on file documented as of this encounter Procedures Procedure Name Priority Date/Time Associated Diagnosis Comments SURGICAL PATHOLOGY Routine 11/20/2005 0:00 EDT documented in this encounter Results * SURGICAL PATHOLOGY (11/20/2005 0:00 EDT) Pathology Report: SURGICAL PATHOLOGY REPORT Reports generated via electronic interface contain original data; however they are lacking the format of the original report. Caution should be taken when reading/interpreti ng unformatted reports. Name: ? HUSSAIN DASILVA ? Accession #: ? [id number] ? : ? 1950 (Age: 55) ??F ? Collect Date: ? 11/20/2005 ? Location: ? [facility] ? Receive Date: ? 11/20/2005 ? Provider: AMY COVARRUBIAS MD Copy to: ? Final Pathologic Diagnosis: A. ?Endometrium, biopsy: 1. ?Scant superficial strips of inactive endometrium. 2. ?Fragments of benign endocervical tissue and squamous mucosa. B. ?Cervix, endocervical polyp, biopsy: 1. ?Benign endocervical polyp, inflamed. Document reviewed and electronically signed by: Mahnaz Ogden MD Report ??Date: 11/24/2005 14:16 By the signature above, the attending physician certifies that he/she has personally conducted a gross and/or microscopic examination of the described specimens and rendered or confirmed the above diagnosis. Specimen(s) Received: 1. ?Endometrial tissue for pathology 2. ?Polyp Clinical History: ? Endometrial tissue & polyp. ??Pap [id number] ASCUS, endometrial cells. Endomet bx, endocervical polyp. Gross Description: ? Received in formalin labelled Brown and 1. Endometrium is 1 cc of whitley-brown to clear mucinous material which is submitted entirely as (A). Received in formalin labelled Brown and 2. Endocervical polyp is a 0.5 x 0.3 x 0.2 cm light whitley-white firm piece of tissue admixed with 0.25 cc of clear mucinous material. ??The specimen is submitted entirely as (B). ??(Rod Nunez/lgk End of Report [facility] 11/20/2005 11/20/2005 10: 39 EDT Amy Covarrubias MD PATHOLOGY ORDERABLES Performing Organization Address City/State/[facility] Co de Phone Number [facility] [address] [place] [address] documented in this encounter Visit Diagnoses Not on filedocumented in this encounter Care Teams Acquisition Consultant Relationship Specialty Start Date End Date Tressa Saunders, [facility] [address] [place] [address] PCP - General 05/16/09 documented as of this encounter
--- OUTSIDE RECORDS SUMMARY | 2023-12-28 15:08 | XMS_ITS | Encounter Summary ---
Author Organization [facility] Address [address] [place] [address] Care Team Providers Care Auto Transmission Technician Name Role Phone Tressa Saunders NP Primary Care Provider [phone] Encounter Details Date Type Department Care Team (Late st Contact Info) Description 05/27/2000 Results Only [facility] - Maple conversion [address] [place] [address] Shana Davis NP Social History Tobacco Use Types Packs/Day Years Used Date Smoking Tobacco: Never Assessed Sex and Gender Information Value Date Recorded Sex Assigned at Not on file Gender Identity Not on file Sexual Orientation Not on file documented as of this encounter Plan of Treatment Not on file documented as of this encounter Procedures Procedure Name Priority Date/Time Associated Diagnosis Comments CYTOPATHOLOGY Routine 05/27/2000 0:00 EST documented in this encounter Results * CYTOPATHOLOGY (05/27/2000 0:00 EST) Pathology Report: CYTOPATHOLOGY REPORT Reports generated via electronic interface contain original data; however they are lacking the format of the original report. Caution should be taken when reading/interpreti ng unformatted reports. Name: ? HUSSAIN DASILVA ? Accession #: ? [id number] : ? 1950 (Age: 49) ??F ?Collect Date: ? 05/27/2000 Location: ? [facility] ? Receive Date: ? 05/29/2000 Provider: ?SHANA DAVIS TAGMAN Copy to: ? Specimen/Source: ?ThinPrep Pap Test, Cervix/Endocervix Last Menstrual Period: ? 05/13/00 ? SPECIMEN ADEQUACY ? Satisfactory for evaluation. GENERAL CATEGORIZATION ? Benign Cellular Changes DESCRIPTIVE DIAGNOSIS ? Parakeratosis - surface reaction present. ? Document reviewed and electronically signed by: ? RUSH JONES MD [facility] ? Report Date: ??06/03/2000 16:34 End of Report [facility] 05/27/2000 05/29/2000 Shana Davis NP PATHOLOGY ORDERABLES Performing Organization Address City/State/[facility] Co de Phone Number [facility] [address] [place] [address] documented in this encounter Visit Diagnoses Not on filedocumented in this encounter Care Teams Auto Transmission Technician Relationship Specialty Start Date End Date Tressa Saunders NP [facility] [address] [place] [address] PCP - General 05/16/09 documented as of this encounter
--- OUTSIDE RECORDS SUMMARY | 2023-12-28 15:08 | XMS_ITS | Encounter Summary ---
Author Organization [facility] Address [address] [place] [address] Care Team Providers Care Cake Mixer Name Role Phone Tressa Saunders VAUDEVILLE ACTOR Primary Care Provider [phone] Encounter Details Date Type Department Care Team (Latest Contact Info) Description 07/13/2018 15:31 EDT - 07/13/2018 23:59 EDT Hospital Encounter [address] [address] Unknown, Provider, Discharge Disposition: Auto Discharge Social History Tobacco Use Types Packs/Day Years Used Date Smoking Tobacco: Never Assessed Sex and Gender Information Value Date Recorded Sex Assigned at Not on file Gender Identity Not on file Sexual Orientation Not on file documented as of this encounter Discharge Disposition Disposition Code Departure Means Destination Auto Discharge Home documented in this encounter Plan of Treatment Not on file documented as of this encounter Visit Diagnoses Not on filedocumented in this encounter Care Teams Cake Mixer Relationship Specialty Start Date End Date Tressa Saunders NP [facility] [address] [place] [address] PCP - General 05/16/09 documented as of this encounter
--- OUTSIDE RECORDS SUMMARY | 2023-12-28 15:08 | XMS_ITS | Encounter Summary ---
Author Organization [facility] Address [address] [place] [address] Care Team Providers Care Claim Representative Name Role Phone Tressa Valdez NP Primary Care Provider [phone] Encounter Details Date Type Department Care Team (Late st Contact Info) Description 04/05/2001 Results Only [facility] - Maple conversion [address] [place] [address] Christian Gutierrez MD [address] [place] [id number] Social History Tobacco Use Types Packs/Day Years Used Date Smoking Tobacco: Never Assessed Sex and Gender Information Value Date Recorded Sex Assigned at Not on file Gender Identity Not on file Sexual Orientation Not on file documented as of this encounter Plan of Treatment Not on file documented as of this encounter Procedures Procedure Name Priority Date/Time Associated Diagnosis Comments SURGICAL PATHOLOGY Routine 04/05/2001 0:00 EST documented in this encounter Results * SURGICAL PATHOLOGY (04/05/2001 0:00 EST) Pathology Report: SURGICAL PATHOLOGY REPORT Reports generated via electronic interface contain original data; however they are lacking the format of the original report. Caution should be taken when reading/interpreti ng unformatted reports. Name: ? HUSSAIN DASILVA ? Accession #: ? [id number] ? : ? 1950 (Age: 50) ??F ? Collect Date: ? 04/05/2001 ? Location: ? [facility] ? Receive Date: ? 04/06/2001 ? Provider: CHRISTIAN GUTIERREZ MD Copy to: SARAH VALDEZ IP LITIGATION ASSOCIATE ? Final Pathologic Diagnosis: ? Palate, excision: - Squamous cell papilloma. Document reviewed and electronically signed by: Lauren Hooks [facility] Report ??Date: 04/08/2001 16:27 By the signature above, the attending physician certifies that he/she has personally conducted a gross and/or microscopic examination of the described specimens and rendered or confirmed the above diagnosis. Specimen(s) Received: ? Palate Clinical History: ? Papilloma of palate; clinical diagnosis code: 239.0 Gross Description: ? Received in formalin labelled Brown and palate is a whitley-white to whitley-brown fragment of soft tissue that measures 0.8 x 0.4 x 0.2 cm. ??One surface is slightly papillary, while the other is gelatinous. ??The specimen is submitted intact in one cassette. ??(Dr. Gutierrez)/ameya End of Report [facility] 04/05/2001 04/06/2001 15: 33 EST Christian Gutierrez MD PATHOLOGY ORDERABLES Performing Organization Address City/State/[facility] Co de Phone Number [facility] [address] [place] [address] documented in this encounter Visit Diagnoses Not on filedocumented in this encounter Care Teams Claim Representative Relationship Specialty Start Date End Date Tressa Valdez NP [facility] [address] [place], [place] [id number] PCP - General 05/16/09 documented as of this encounter
--- OUTSIDE RECORDS SUMMARY | 2023-12-28 15:08 | XMS_ITS | Encounter Summary ---
Author Organization [facility] Address [address] [place] [address] Care Team Providers Care Lumber Sorter Name Role Phone Tressa Saunders NP Primary Care Provider [phone] Encounter Details Date Type Department Care Team (Late st Contact Info) Description 05/24/2001 Results Only [facility] - Maple conversion [address] [place] [address] Shana Davis NP Social History Tobacco Use [...] Priority Date/Time Associated Diagnosis Comments CYTOPATHOLOGY Routine 05/24/2001 0:00 EST documented in this encounter Results * CYTOPATHOLOGY (05/24/2001 0:00 EST) Pathology Report: CYTOPATHOLOGY REPORT Reports generated via electronic interface contain original data; however they are lacking the format of the original report. Caution should be taken when reading/interpreti ng unformatted reports. Name: ? HUSSAIN DASILVA ? Accession #: ? [id number] : ? 1950 (Age: 50) ??F ?Collect Date: ? 05/24/2001 Location: ? [facility] ? Receive Date: ? 05/25/2001 Provider: ?SHANA DAVIS REPRODUCER Copy to: ? Specimen/Source: ?ThinPrep Pap Test, Cervix/Endocervix Last Menstrual Period: ? 04/23/01 Previous Gynecologic Pathology: ? Benign cellular changes: 04/30 ? SPECIMEN ADEQUACY ? Satisfactory for Evaluation - transformation zone component present GENERAL CATEGORIZATION ? Negative for Intraepithelial Lesion or Malignancy ? Document reviewed and electronically signed by: ? ELMER Jarrett(ASCP) ? Report Date: ??05/27/2001 14:01 End of Report [facility] 05/24/2001 05/25/2001 Shana Davis NP PATHOLOGY ORDERABLES Performing Organization Address City/State/[facility] Co de Phone Number [facility] [address] [place] [address] documented in this encounter Visit Diagnoses Not on filedocumented in this encounter Care Teams Lumber Sorter Relationship Specialty Start Date End Date Tressa Saunders NP [facility] [address] [place] [address] PCP - General 05/16/09 documented as of this encounter
--- OUTSIDE RECORDS SUMMARY | 2023-12-28 15:08 | XMS_ITS | Referral Summary ---
Author Organization [facility] Address [address] [place] [address] Care Team Providers Care Contact Finger Assembler Name Role Phone Tressa Saunders PATIENT [employer]AL [employer]CIERGE Primary Care Provider [phone] Social History Tobacco Use Types Packs/Day Years Used Date Smoking Tobacco: Never Assessed Interpersonal Safety Answer Date Record ed Physically Hurt Never 10/30/2019 Verbally Threaten Not on file 10/30/2019 Sex and Gender Information Value Date Recorded Sex Assigned at Not on file Gender Identity Not on file Sexual Orientation Not on file Plan of Treatment Not on file Care Teams Contact Finger Assembler Relationship Specialty Start Date End Date Tressa Saunders, [facility] [address] [place], [place] [address] PCP - General 05/16/09
--- OUTSIDE RECORDS SUMMARY | 2023-12-28 15:08 | XMS_ITS | Encounter Summary ---
Author Organization [facility] Address [address] [place] [address] Care Team Providers Care Civil Engineering Draftsperson Name Role Phone Tressa Saunders NP Primary Care Provider [phone] Encounter Details Date Type Department Care Team (Late st Contact Info) Description 05/20/1999 Results Only [facility] - Maple conversion [address] [place] [address] Shana Davis NP Social History Tobacco Use [...] Priority Date/Time Associated Diagnosis Comments CYTOPATHOLOGY Routine 05/20/1999 13:18 EST documented in this encounter Results * CYTOPATHOLOGY (05/20/1999 13:18 EST) Pathology Report: CYTOPATHOLOGY REPORT Reports generated via electronic interface contain original data; however they are lacking the format of the original report. Caution should be taken when reading/interpreti ng unformatted reports. Name: ? HUSSAIN DASILVA ? Accession #: ? [id number] : ? 1950 (Age: 48) ??F ?Collect Date: ? 05/20/1999 Location: ?Receive Date: ? 05/20/1999 Provider: ?SHANA Darwin CICI FLUE LINING DIPPER Copy to: ?SHANA DAVIS FLUE LINING DIPPER ? Specimen/Source: ?Photoresist Printer ThinPrep Last Menstrual Period: ? GYNECOLOGIC ??CYTOPATHOLOGY ??REPORT Name: PHU,HUSSAIN ? [facility] : 1950 ?? 48Y F ?Client ID: [id number] SS#: ? Clinician: RICA DAVIS NP ?? Location: [facility] ??Copy to: ?? Specimen: ?Photoresist Printer ThinPrep ? Source: Cervix/Endocervix ?Collected: 05/16/99 ? Received: 05/20/1999 ?LMP: 05/04/99 ? Hormone Therapy: No ? : No ? Radiation Therapy: No ?? Post : No ?Chemotherapy: No ?IUD: No ? Prev Abnormal Pap: No ?? Clinical Hx: ?(Blank segundo indicate information not provided on requisition) SPECIMEN ADEQUACY: ? Satisfactory For Evaluation ?? GENERAL CATEGORIZATION: ? WITHIN NORMAL LIMITS ? Reviewed And Electronically Signed By: ? Su Thomas, CT(ASCP) ? Report Date: ?? 05/21/1999 Zhilian [facility] Archived Tests - Final Diagnosis Text Field: Clinical History : ? Document reviewed and electronically signed by: ? Conversion ? Report Date: ??05/21/1999 00:00 End of Report SHAUN HAWKINS 05/20/1999 13:1 8 EST 05/20/1999 13:19 EST Shana Davis FLUE LINING DIPPER PATHOLOGY ORDERABLES Performing Organization Address City/State/[place] Co de Phone Number [facility] [address] [place] [address] documented in this encounter Visit Diagnoses Not on filedocumented in this encounter Care Teams Civil Engineering Draftsperson Relationship Specialty Start Date End Date Tressa Saunders NP [facility] [address] [place] [address] PCP - General 05/16/09 documented as of this encounter
--- OUTSIDE RECORDS SUMMARY | 2023-12-28 15:08 | XMS_ITS | Encounter Summary ---
Author Organization [facility] Address [address] [place] [address] Care Team Providers Care It Admin Name Role Phone Tressa Saunders NP Primary Care Provider [phone] Encounter Details Date Type Department Care Team (Late st Contact Info) Description 07/13/2018 Results Only [facility] [phone] Benigno Calhoun MD [address] [place] [phone] Social History Tobacco Use Types Packs/Day Years Used Date Smoking Tobacco: Never Assessed Sex and Gender Information Value Date Recorded Sex Assigned at Not on file Gender Identity Not on file Sexual Orientation Not on file documented as of this encounter Plan of Treatment Not on file documented as of this encounter Procedures Procedure Name Priority Date/Time Associated Diagnosis Comments SURGICAL PATHOLOGY Routine 07/13/2018 15 :51 EDT documented in this encounter Results * SURGICAL PATHOLOGY (07/13/2018 15:51 EDT) Pathology Report: SURGICAL PATHOLOGY REPORT Reports generated via electronic interface contain original data; however they are lacking the format of the original report. Caution should be taken when reading/interpret ing unformatted reports. Name: ? HUSSAIN DASILVA ? Accession #: ? [id number] ? : ? 1950 (Age: 67) ??F ? Collect Date: ? 07/13/2018 ? Location: ? [facility] ? Receive Date: ? 07/13/2018 ? Provider: BENIGNO CALHOUN MD Copy to: ? Final Pathologic Diagnosis: COLON, SIGMOID, POLYP, BIOPSY: - ??Fragments of tubular adenoma. Document reviewed and electronically signed by: NEL CONTRERAS MD Report ??Date: 07/16/2018 06:30 By the signature above, the attending physician certifies that he/she has personally conducted a gross and/or microscopic examination of the described specimens and rendered or confirmed the above diagnosis. Specimen(s) Received: Sigmoid colon polyp Clinical History: Hx polyps; clinical diagnosis codes: ??Z12.11, Z80.0, Z86.010 Gross Description: ? Received in formalin labelled with proper patient identification (initials F, C) and sigmoid colon polyp are two whitley-pink tissue fragments (0.2 x 0.1 x 0.1 cm and 0.3 x 0.2 x 0.1 cm). Submitted in toto in 1. CEDRICK Lott (ASCP) 07/13/2018 4:51 PM End of Report [facility] 07/13/2018 15:5 1 EDT 07/13/2018 15:51 EDT Benigno Calhoun MD PATHOLOGY ORDERABL ES [facility] [address] [place] [address] documented in this encounter Visit Diagnoses Not on filedocumented in this encounter Care Teams It Admin Relationship Specialty Start Date End Date Tressa Saunders NP [facility] [address] [place] [address] PCP - General 05/16/09 documented as of this encounter
--- OUTSIDE RECORDS SUMMARY | 2023-12-28 15:08 | XMS_ITS | Encounter Summary ---
Author Organization [facility] Address [address] [place] [address] Care Team Providers Care Early Intervention Specialist Name Role Phone Tressa Saunders NP Primary Care Provider [phone] Encounter Details Date Type Department Care Team (Late st Contact Info) Description 06/09/2002 Results Only [facility] - Maple conversion [address] [place] [address] Shana Davis NP Social History Tobacco Use [...] Priority Date/Time Associated Diagnosis Comments CYTOPATHOLOGY Routine 06/09/2002 0:00 EST documented in this encounter Results * CYTOPATHOLOGY (06/09/2002 0:00 EST) Pathology Report: CYTOPATHOLOGY REPORT Reports generated via electronic interface contain original data; however they are lacking the format of the original report. Caution should be taken when reading/interpreti ng unformatted reports. Name: ? HUSSAIN DASILVA ? Accession #: ? [id number] : ? 1950 (Age: 51) ??F ?Collect Date: ? 06/09/2002 Location: ? [facility] ? Receive Date: ? 06/10/2002 Provider: ?SHANA DAVIS KEYSEATING MACHINE SET UP OPERATOR Copy to: ? Specimen/Source: ?ThinPrep Pap Test, Cervix/Endocervix Last Menstrual Period: ? 04/23/01 ? SPECIMEN ADEQUACY ? Satisfactory for Evaluation - transformation zone component present GENERAL CATEGORIZATION ? Negative for Intraepithelial Lesion or Malignancy ? Document reviewed and electronically signed by: ? STEPHANIE Moss(ASCP) ? Report Date: ??06/13/2002 13:49 End of Report SHAUN HAWKINS 06/09/2002 06/10/2002 Shana Davis NP PATHOLOGY ORDERABLES Performing Organization Address City/State/[facility] Co de Phone Number [facility] [address] [place] [address] documented in this encounter Visit Diagnoses Not on filedocumented in this encounter Care Teams Early Intervention Specialist Relationship Specialty Start Date End Date Tressa Saunders NP [facility] [address] [place], [place] [id number] PCP - General 05/16/09 documented as of this encounter
--- OUTSIDE RECORDS SUMMARY | 2023-12-28 15:08 | XMS_ITS | Encounter Summary ---
Author Organization [facility] Address [address] [place] [address] Care Team Providers Care Forester Silviculture Name Role Phone Tressa Valdez ROUTE DELIVERY MANAGER Primary Care Provider [phone] Encounter Details Date Type Department Care Team (Late st Contact Info) Description 04/19/2012 Results Only [facility] Laboratory Services - [facility] ([facility] [address] [place] [address] Shana Davis NP Social History Tobacco Use Types Packs/Day Years Used Date Smoking Tobacco: Never Assessed Sex and Gender Information Value Date Recorded Sex Assigned at Not on file Gender Identity Not on file Sexual Orientation Not on file documented as of this encounter Plan of Treatment Not on file documented as of this encounter Procedures Procedure Name Priority Date/Time Associated Diagnosis Comments PAP TEST- RESULT ONLY Routine 04/19/2012 0:00 EST documented in this encounter Results * PAP TEST- RESULT ONLY (04/19/2012 0:00 EST) Pathology Report: CYTOPATHOLOGY REPORT Reports generated via electronic interface contain original data; however they are lacking the format of the original report. Caution should be taken when reading/interpreti ng unformatted reports. Name: ? HUSSAIN DASILVA ? Accession #: ? [id number] : ? 1950 (Age: 61) ??F ?Collect Date: ? 04/19/2012 Location: ? [facility] ? Receive Date: ? 04/20/2012 Provider: ?SHANA DAVIS ROUTE DELIVERY MANAGER Copy to: ?TRESSA VALDEZ ROUTE DELIVERY MANAGER ? Specimen/Source: ?Pap Test, Cervix/Endocervix, ThinPrep Imaging System with manual evaluation Last Menstrual Period: ? 2001 ? SPECIMEN ADEQUACY ? Satisfactory for Evaluation - transformation zone component present - scant squamous epithelial component - obscuring contamination, possibly lubricant GENERAL CATEGORIZATION ? Negative for Intraepithelial Lesion or Malignancy ? Document reviewed and electronically signed by: ? STEPHANIE Thomas(ASCP) ? Report Date: ??04/27/2012 14:17 End of Report SHAUN HAWKINS 04/19/2012 04/20/2012 Shana Davis NP PATHOLOGY ORDERABLES Performing Organization Address City/State/[facility] Co de Phone Number [facility] [address] [place] [address] documented in this encounter Visit Diagnoses Not on filedocumented in this encounter Care Teams Forester Silviculture Relationship Specialty Start Date End Date Tressa Valdez NP [facility] [address] [place] [address] PCP - General 05/16/09 documented as of this encounter
--- OUTSIDE RECORDS SUMMARY | 2023-12-28 15:08 | XMS_ITS | Encounter Summary ---
Author Organization [facility] Address [address] [place] [address] Care Team Providers Care Shop Steward Name Role Phone Unavailable Primary Care Provider Unavailabl e Encounter Details Date Type Department Care Team (Late st Contact Info) Description 10/11/2007 Before PRISM Converted Visit (Maple) [facility] - Maple conversion [address] [place] [address] Shana Davis, RUBINA Social History Tobacco Use Types Packs/Day Years Used Date Smoking Tobacco: Never Assessed Sex and Gender Information Value Date Recorded Sex Assigned at Not on file Gender Identity Not on file Sexual Orientation Not on file documented as of this encounter Plan of Treatment Not on file documented as of this encounter Procedures Procedure Name Priority Date/Time Associated Diagnosis Comments CYTOPATHOLOGY Routine 10/11/2007 0:00 EDT documented in this encounter Results * CYTOPATHOLOGY (10/11/2007 0:00 EDT) Pathology Report: CYTOPATHOLOGY REPORT ? Reports generated via electronic interface contain original data; ? however they are lacking the format of the original report. ? Caution should be taken when reading/interpreti ng unformatted reports. ? Name: ? HUSSAIN DASILVA ? Accession #: ? [id number] ? : ? 1950 (Age: 57) ??F ?Collect Date: ? 10/11/2007 ? Location: ? [facility] ? Receive Date: ? 10/12/2007 ? Provider: ?SHANA M CICI ACCOUNTING SYSTEMS MANAGER ? Copy to: ? Specimen/Source: ?ThinPrep Pap Test, Cervix/Endocervix, processed on Cytyc ThinPrep Imaging System, with manual evaluation ? Last Menstrual Period: ? 1/25/02 ? Hormonal/Contracep tive Status: ? Yes: Vasectomy ? Previous Gynecologic Pathology: ? Benign cellular changes: 2001 ? ASC-US: 7/06 - HPV ? SPECIMEN ADEQUACY ? Satisfactory for Evaluation ? - transformation zone component present ? GENERAL CATEGORIZATION ? Negative for Intraepithelial Lesion or Malignancy ? Document reviewed and electronically signed by: ? Lynan Los, CT(ASCP) ? Report Date: ??10/18/2007 15:13 ? End of Report ? SHAUN HAWKINS 10/11/2007 10/12/2007 Shana Davis ACCOUNTING SYSTEMS MANAGER PATHOLOGY ORDERABLES [facility] [address] [place] [address] documented in this encounter Visit Diagnoses Not on filedocumented in this encounter
--- OUTSIDE RECORDS SUMMARY | 2023-12-28 15:08 | XMS_ITS | Encounter Summary ---
Author Organization [facility] Address [address] [place] [address] Care Team Providers Care Commercial Real Estate Assistant Name Role Phone Unavailable Primary Care Provider Unavailabl e Encounter Details Date Type Department Care Team (Late st Contact Info) Description 03/19/2009 Orders Only [facility] Laboratory Services - [facility] ([facility] [address] [place] [address] Shana Davis NP Social History Tobacco [...] Comments HPV DETECTION, HIGH RISK TYPES Routine 03/19/2009 10:34 EST CYTOPATHOLOGY Routine 03/19/2009 0:00 EST documented in this encounter Results * HUMAN PAPILLOMA VIRUS DNA TEST (03/19/2009 10:34 EST) Specimen Description Cervix, ThinPrep vial [facility] Result Negative for HPV types 16, 18, 31, 33, 35, 39, 45, 51, 52, 56, 58, 59, and 68. [facility] Report Status Final 03/29/2009 [facility] 03/19/2009 10:3 4 EST 03/26/2009 10:34 EST Shana Davis NP MICROBIOLOGY - GENER AL ORDERABLES [facility] [address] [place] [address] * CYTOPATHOLOGY (03/19/2009 0:00 EST) Pathology Report: CYTOPATHOLOGY REPORT ? Reports generated via electronic interface contain original data; ? however they are lacking the format of the original report. ? Caution should be taken when reading/interpreti ng unformatted reports. ? Name: ? HUSSAIN DASILVA ? Accession #: ? [id number] ? : ? 1950 (Age: 58) ??F ?Collect Date: ? 03/19/2009 ? Location: ? [facility] ? Receive Date: ? 03/20/2009 ? Provider: ?SHANA M CICI COLD ROLL CATCHER ? Copy to: ? Specimen/Source: ?Pap Test, Cervix/Endocervix, ThinPrep Imaging System ? with manual evaluation ? Last Menstrual Period: ? Hormonal/Contracep tive Status: ? Yes: Vasectomy ? Previous Gynecologic Pathology: ? Benign cellular changes: 2001 ? ASC-US: 07/06 negative HPV ? Other: ? HPVDX - HPV testing requested regardless of diagnosis on current ThinPrep Pap ?? test. ? SPECIMEN ADEQUACY ? Satisfactory for Evaluation ? - transformation zone component present ? - scant squamous epithelial component ? GENERAL CATEGORIZATION ? Negative for Intraepithelial Lesion or Malignancy ? Document reviewed and electronically signed by: ? Margoth Celeste, CT(ASCP) ? Report Date: ??03/21/2009 13:03 ? End of Report ? SHAUN HAWKINS 03/19/2009 03/20/2009 Shana Davis COLD ROLL CATCHER PATHOLOGY ORDERABLES [facility] [address] [place] [address] documented in this encounter Visit Diagnoses Not on filedocumented in this encounter
--- OUTSIDE RECORDS SUMMARY | 2023-12-28 15:08 | XMS_ITS | Encounter Summary ---
Author Organization [facility] Address [address] [place] [address] Care Team Providers Care Ship Purser Name Role Phone Tressa Saunders MACHINE BUILDER Primary Care Provider [phone] Encounter Details Date Type Department Care Team (Late st Contact Info) Description 08/17/2003 Results Only [facility] - Maple conversion [address] [place] [address] Shana Davis NP Social History Tobacco Use [...] Priority Date/Time Associated Diagnosis Comments CYTOPATHOLOGY Routine 08/17/2003 0:00 EDT documented in this encounter Results * CYTOPATHOLOGY (08/17/2003 0:00 EDT) Pathology Report: CYTOPATHOLOGY REPORT Reports generated via electronic interface contain original data; however they are lacking the format of the original report. Caution should be taken when reading/interpreti ng unformatted reports. Name: ? HUSSAIN DASILVA ? Accession #: ? [id number] : ? 1950 (Age: 52) ??F ?Collect Date: ? 08/17/2003 Location: ? [facility] ? Receive Date: ? 08/21/2003 Provider: ?SHANA DAVIS MACHINE BUILDER Copy to: ? Specimen/Source: ?ThinPrep Pap Test, Cervix/Endocervix Last Menstrual Period: ? 04/23/01 Previous Gynecologic Pathology: ? Benign cellular changes: 04/30, 05/01, 05/02 Paps negaative Other: ? Additional clinical information: Asymptomatic cx polyps ? SPECIMEN ADEQUACY ? Satisfactory for Evaluation - transformation zone component present GENERAL CATEGORIZATION ? Negative for Intraepithelial Lesion or Malignancy ? Document reviewed and electronically signed by: ? STEPHANIE Nevarez(ASCP) ? Report Date: ??08/24/2003 07:17 End of Report SHAUN HAWKINS 08/17/2003 08/21/2003 Shana Davis NP PATHOLOGY ORDERABLES Performing Organization Address City/State/[facility] Co de Phone Number [facility] [address] [place] [address] documented in this encounter Visit Diagnoses Not on filedocumented in this encounter Care Teams Ship Purser Relationship Specialty Start Date End Date Tressa Saunders MACHINE BUILDER [facility] [address] [place] [address] PCP - General 05/16/09 documented as of this encounter
--- OUTSIDE RECORDS SUMMARY | 2023-12-28 15:08 | XMS_ITS | Clinical Summary ---
Author Organization [facility] Address [address] [place] [address] Care Team Providers Care Feeder Catcher Tobacco Name Role Phone Tressa Saunders CLASSIFICATION CLERK Primary Care Provider [phone] Social History Tobacco Use Types Packs/Day Years Used Date Smoking Tobacco: Never Assessed Interpersonal Safety Answer Date Record ed Physically Hurt Never 10/30/2019 Verbally Threaten Not on file 10/30/2019 Sex and Gender Information Value Date Recorded Sex Assigned at Not on file Gender Identity Not on file Sexual Orientation Not on file Plan of Treatment Health Maintenance Due Date Last Done Comments Hepatitis C Screen 1950 RSV Immunization ( o r 60+ Years) (1 - 1-dose 60+ series) 2012 Fall Risk Screening 2017 COVID-19 Vaccine (2022- season) 2022 Care Teams Feeder Catcher Tobacco Relationship Specialty Start Date End Date Tressa Saunders, RUB[place] [facility] [address] [place], [place] [address] PCP - General 05/16/09
--- OUTSIDE RECORDS SUMMARY | 2023-12-28 15:08 | XMS_ITS | Continuity of Care Document ---
Author Organization [facility] Address [address] [place] [id number] Care Team Providers Care Sequins Stringer Name Role Phone RAMO RUDOLPH Primary Care Physician Encounter [facility] FIN NBR [id number] Date(s): 03/27/23 - 03/27/[address] [address]- Discharge Disposition: Home or Self Care Attending Physician: RAMO RUDOLPH Admitting Physician: RAMO RUDOLPH Referring Physician: RAMO RUDOLPH Allergies, Adverse Reactions, Alerts Substance Reaction Severity Status naproxen Unknown Active LaMICtal Unknown Active Medications amoxicillin-clavulanate 875 mg-125 mg oral tablet 1 tab, Oral, every 12 hr, with food or milk, # 14 tab, 0 Refill(s), Pharmacy: [facility] Start Date: 10/23/22 Stop Date: 10/30/22 Status: Ordered atorvastatin 10 mg oral tablet 0 Refill(s) Start Date: 10/23/22 Status: Ordered cephalexin 500 mg oral capsule 2,000 mg = 4 cap, Oral, Once, take 4 capsules orally one hour prior to dental appt, # 12 cap, 0 Refill(s), Pharmacy: [facility] Start Date: 01/19/23 Status: Ordered FLUoxetine [...] 0 Refill(s) Start Date: 10/23/22 Status: Ordered Results Radiology Reports * Exam Date Time Procedure Performing Provider Status 03/27/23 11:29 AM MG Mammo Screening Bilateral Amparo Byrne; Samina (Verified) Notes: (MG Mammo Screening Bilateral) Reason For Exam: SCREENING MG Mammo Screening Bilateral EXAM DESCRIPTION: MG Mammo Screening Bilateral 03/27/2023 INDICATION: SCREENING RISK FACTOR: The patient may be at increased breast cancer risk based on Fiona risk model COMPARISON: 03/18/2022 and 03/15/2021 BREAST DENSITY: There are scattered areas of fibroglandular density. FINDINGS: MLO and CC views were performed with digital breast tomosynthesis. Images were reviewed using computer aided detection. No asymmetry, architectural distortion or suspicious grouping of calcifications to suggest malignancy in either breast. ASSESSMENT: No mammographic evidence of malignancy. Negative. BI-RADS category 1. RECOMMENDATION: Screening mammography in 1 year JOB #: [id number] Final Signed by: Charles Miranda MD Signed (Electronic Signature): 03/27/2023 11:37 am Social History Social History Type Response Tobacco Never tobacco user T obacco Use:. Sex Patient Care team information Care Team Personnel Name: RAMO RUDOLPH Position: No Access Member Role: Primary Care Physician Address: Address: [address] [place] [address]- [place] Care Team Related Persons Name: KESHA BAY
--- OUTSIDE RECORDS SUMMARY | 2023-12-28 15:09 | XMS_ITS | Clinical Summary ---
Author Organization [facility] Address [facility] [place] [address] Care Team Providers Care Fire Fighter [employer] Name Role Phone Mercedez Salmeron DAWSON Primary Care Provider [phone] Allergies Active Allergy Reactions Criticality Noted Date Comments Amoxicillin-Pot Clavulanate 12/11/19 22 Other reaction(s): vomiting, diarrhea Terbinafine Hcl 01/01/2018 Muscle spasm Naproxen 01/01/2018 sensitivity Medications Medication Sig Dispensed Refills Start Date End Date Status Calcium Carbonate-Vit D3-Min 600-400 mg-unit Tab Take 1 tablet by mouth daily. Active ibuprofen (Advil) 200 mg TabletIndications:pain Take 400 mg by mouth 2 times daily. Indications: Pain 08/29/2010 Active LORazepam (ATIVAN) 0.5 mg Tablet 03/14/2016 Active buPROPion (WELLBUTRIN) 100 mg Tablet 12/21/2017 Active hydroCHLOROthiazide (HYDRODIURIL) 12.5 mg Tablet Taking 6.25 mg 11/09/2017 Active levETIRAcetam (KEPPRA) 500 mg Tablet Take 500 mg by mouth 2 times daily. 11/10/2018 Active atorvastatin (Lipitor) 10 mg Tablet Take 40 mg by mouth daily. 11/27/2019 Active FLUoxetine (PROzac) 40 mg Capsule 01/24/2022 Active lisinopriL (Zestril) 10 mg tablet 0 Refill(s) 10/23/2022 Active Levothyroxine (Tirosint) 13 mcg capsule Take by mouth. Active Active Problems Problem Noted Date Diagnosed Date Other seborrheic keratosis 01/01/2018 History of malignant melanoma 04/27/2015 Lumbar radiculopathy 10/10/2010 Sacral dysfunction 09/12/2010 Facet arthropathy 09/12/2010 Foraminal stenosis of lumbar region 09/12/2010 Immunizations Name Administration Dates Next Due Influenza Vaccine, Whole 02/01/2008 Social History Tobacco Use Types Packs/Day Years Used Date Smoking Tobacco: Never Smokeless Tobacco: Never Alcohol Use Standard Drinks/Week Comments No 0 (1 standard drink = 0.6 oz pur e alcohol) Sex and Gender Information Value Date Recorded Sex Assigned at Not on file Gender Identity Not on file Sexual Orientation Not on file Last Filed Vital Signs Vital Sign Reading Time Taken Comments Blood Pressure 137/89 10/10/2010 9:16 AM EDT Pulse 93 10/10/2010 9:16 AM EDT Temperature - - Respiratory Rate 18 10/10/2010 9:16 AM EDT Oxygen Saturation 100% 10/10/2010 9:16 AM EDT Inhaled Oxygen Concentration - - Weight 70.8 kg (156 lb) 09/12/2010 10:43 AM EDT Height 165.1 cm (5' 5) 10/10/2010 7:00 AM EDT Body Mass Index 25.96 08/29/2010 2:38 PM EDT Plan of Treatment Upcoming Encounters Date Type Department Care Team (Late st Contact Info) Description 02/19/2024 8:45 AM EST Office Visit Dermatology at [place] [address] [facility] [place] [address] Jan Shook MD [address], [place]MINIO [place] [address] Health Maintenance Due Date Last Done Comments CT Colonography 1952 FIT DNA 1950 FIT 1950 Sigmoidoscopy (10 year) with FIT yearly 1950 Sigmoidoscopy 1950 Hepatitis C Screening 1970 Tetanus/Diphtheria/Pertussis Vaccines (1 - Tdap) 09/18/1971 Breast Cancer Share Decision Needed 1992 Breast Cancer screening 1992 Zoster vaccine (1 of 2) 2002 Advance Directive 09/18/2007 Colonoscopy 08/13/2014 08/13/2009 (See prior EHR) Colorectal Cancer Screening 08/13/2014 Bone Density Scan 2017 Pneumoccocal Vaccine: 65+ (1 of 1 - PCV) 2017 Covid-19 Vaccine ( - 2022- season) 2023 Influenza (Flu) vaccine (1 o f 1 - Influenza standard series) 11/29/2023 02/01/2008 Care Teams Fire Fighter [employer] Relationship Specialty Start Date End Date Mercedez Salmeron, DAWSON PCP - General Family Medicine 01/07/19
--- OUTSIDE RECORDS SUMMARY | 2023-12-28 15:09 | XMS_ITS | Encounter Summary ---
Author Organization [facility] [place] [address] Care Team Providers Care Dock Clerk Name Role Phone Mercedez Salmeron Deric OSMAN Primary Care Provider [phone] Reason for Visit * Reason Comments Annual Exam Encounter Details Date Type Department Care Team (Late st Contact Info) Description 02/14/2022 8:45 AM EST Office Visit Dermatology at [address] [place] [address] Jan Shook MD [address] [facility] Christiana DERMATOLOGY [place], [place] [id number] History of malignant melanoma; Other seborrheic keratosis Social History Tobacco Use Types Packs/Day Years Used Date Smoking Tobacco: Never Smokeless Tobacco: Never Alcohol Use Standard Drinks/Week Comments No 0 (1 standard drink = 0.6 oz pur e alcohol) Sex and Gender Information Value Date Recorded Sex Assigned at Not on file Gender Identity Not on file Sexual Orientation Not on file documented as of this encounter Progress Notes * Jan Shook MD - 02/14/2022 8:45 AM EST Problem: 1. ??Yearly skin checkup 2. ??History of malignant melanoma, central forehead, 0.81 mm Breslow depth excised August 2014 Sanjuanita follows up today for her yearly skin checkup. She is here today with her Eugenio. She continues to have intermittent bouts of diverticulitis. Physical examination reveals a pleasant 71-year-old woman who has a benign examination of the forehead melanoma excision site. She has several milia present on the left and right hoahaoism and above herright eyebrow. She has a solar lentigo on the right cheek. Careful examination of the scalp the face the chest the back the hands arms forearms thighs and calves is otherwise benign. Assessment plan: Benign skin examination 1. Patient reassured about her benign skin examination 2. Continue sun avoidance precautions 3. Return to clinic in the year for repeat check. CC: Mercedez Salmeron APRN documented in this encounter Plan of Treatment Upcoming Encounters Date Type Department Care Team (Late st Contact Info) Description 02/19/2024 8:45 AM EST Office Visit Dermatology at [place] [address] [place] [address] Jna Shook MD [address] [facility], [place] [address] documented as of this encounter Visit Diagnoses Diagnosis History of malignant melanoma Personal history of malignant melanoma of skin Other seborrheic keratosis documented in this encounter Care Teams Dock Clerk Relationship Specialty Start Date End Date Mercedez Salmeron APRN PCP - General Family Medicine 01/07/19 documented as of this encounter
--- OUTSIDE RECORDS SUMMARY | 2023-12-28 15:09 | XMS_ITS | Encounter Summary ---
Author Organization [facility] [address] Care Team Providers Care Home Energy Consultant Supervisor Name Role Phone Mercedez Salmeron Deric OSMAN Primary Care Provider [phone] Reason for Visit * Reason Comments Skin Check Encounter Details Date Type Department Care Team (Late st Contact Info) Description 02/06/2020 9:15 AM EST Office Visit Dermatology at [address] [place] [address] Jan Shook MD [address] [facility], [place] [address] History of malignant melanoma; Other seborrheic keratosis [...] Progress Notes * Jan Shook MD - 02/06/2020 9:15 AM EST Problem: 1. ??Yearly skin checkup 2. ??History of malignant melanoma, central forehead, 0.81 mm Breslow depth excised August 2014 Sanjuanita follows up today for her yearly skin checkup. She is been doing well. Unfortunately she is having a lot of hip pain and has been told that she will need her left hip replaced. She is putting that off as long as possible. Physical examination reveals a pleasant 69-year-old woman who has a well-healed horizontal scar in the central forehead with no evidence of recurrent pigmentation there. She has no cervical adenopathy. She has several solar lentigos on the left and right cheek and a dilated comedone on her central chin. She has abenign examination of the head and the neck the chest the back the hands the arms of forearms the thighs and the calves. Assessment plan: History of malignant melanoma 0.81 mm Breslow depth August 2014 1. Patient reassured about her benign examination today 2. Continue our once yearly skin checkups 3. Continue sun avoidance precautions. CC: Mercedez Salmeron APRN documented in this encounter Plan of Treatment Upcoming Encounters Date Type Department Care Team (Late st Contact Info) Description 02/19/2024 8:45 AM EST Office Visit Dermatology at [address] [address] Jan Shook MD [address] [facility], [place] [address] documented as of this encounter Visit Diagnoses Diagnosis History of malignant melanoma Personal history of malignant melanoma of skin Other seborrheic keratosis documented in this encounter Care Teams Home Energy Consultant Supervisor Relationship Specialty Start Date End Date Mercedez Salmeron APRN PCP - General Family Medicine 01/07/19 documented as of this encounter
--- OUTSIDE RECORDS SUMMARY | 2023-12-28 15:09 | XMS_ITS | Encounter Summary ---
Author Organization [facility] [place] [address] Care Team Providers Care Refrigeration Technician Name Role Phone Tressa Saunders APRN Primary Care Provider [phone] Reason for Visit * Diagnostic Test (Routine) - Closed Specialty Diagnoses / Procedures Referred By Contac t Referred To Contact Radiology Diagnoses Nonintractable epilepsy without status epilepticus, unspecified epilepsy type Procedures MRI Brain wo Contrast Melisa Nelson MD [facility] [address] [place] [address] [place] [address] Referral ID Status Reason Start Date Expiration Date V isits Requested Visits Authorized [id number] Closed Specialty Service Requested 07/30/2017 09/27/2017 1 1 Encounter Details Date Type Department Care Team (Late st Contact Info) Description 08/11/2017 2:28 PM EDT - 08/11/2017 11:59 PM EDT [place] [address] Melisa Nelson MD [facility] [address] [place] [address] Discharge Disposition: Home Social History Tobacco Use Types Packs/Day Years Used Date Smoking Tobacco: Never Smokeless Tobacco: Never Alcohol Use Standard Drinks/Week Comments No 0 (1 standard drink = 0.6 oz pur e alcohol) Sex and Gender Information Value Date Recorded Sex Assigned at Not on file Gender Identity Not on file Sexual Orientation Not on file documented as of this encounter Medications at Time of Discharge Medication Sig Dispensed Refills Start Date End Date LORazepam (ATIVAN) 0.5 mg Tablet 03/14/2016 Calcium Carbonate-Vit D3-Min 600-400 mg-unit Tab Take 1 tablet by mouth daily. ibuprofen (Advil) 200 mg TabletIndications:pain Take 400 mg by mouth 2 times daily. Indications: Pain 08/29/2010 levothyroxine (Synthroid) 50 mcg Tablet Take 50 mcg by mouth daily. 02/17/2023 levETIRAcetam (KEPPRA) 750 mg Tablet Take 750 mg by mouth 2 times daily. 01/07/2019 buPROPion (WELLBUTRIN SR OR ZYBAN) 150 mg Tablet Sustained Release 12 hr TAKE ONE TABLET BY MOUTH TWICE A DAY 3 10/02/2016 01/01/2018 methocarbamol (ROBAXIN) 750 mg Tablet 12/27/2015 01/01/2018 lisinopril (PRINIVIL;ZESTRIL) 10 mg tablet Take 5 mg by mouth daily. 01/07/2019 atorvastatin (LIPITOR) 10 mg tablet Take 20 mg by mouth daily. 01/01/2018 hydrochlorothiazide (HYDRODIURIL) 25 mg tablet Take 6.25 mg by mouth daily. 01/01/2018 traMADol (ULTRAM) 50 mg tablet Take 50-100 mg by mouth every 8 hours as needed. 02/14/2022 documented as of this encounter Plan of Treatment Upcoming Encounters Date Type Department Care Team (Late st Contact Info) Description 02/19/2024 8:45 AM EST Office Visit Dermatology at [place] [address] [place] [phone] Jan Shook MD [address], [place] [address] documented as of this encounter Procedures Procedure Name Priority Date/Time Associated Diagnosis Comments MRI BRAIN WO CONTRAST Routine 08/11/2017 5:26 PM EDT Nonintractable epilepsy without status epilepticus, unspecified epilepsy type documented in this encounter Results * MRI Brain wo Contrast (08/11/2017 5:26 PM EDT) Anatomical Region Laterality Modality Head Magnetic Resonan ce Impressions 08/12/2017 7:56 AM EDT Negative exam Narrative 08/12/2017 7:56 AM EDT EXAMINATION: MRI BRAIN WO CONTRAST CLINICAL HISTORY: Seizures, Seizure protocol TECHNIQUE: MRI brain noncontrast JOE protocol COMPARISON: None FINDINGS: There is normal signal characteristics the brain parenchyma. There is no evidence of mass, mass effect, midline shift or extra-axial fluid collection. No heterotopia identified. No cortical dysplasia seen. There is normal morphology and signal of the hippocampal formations and mesial temporal lobe structures.. No hemoglobin degradation products identified on the susceptibility sequence. Midline structures are unremarkable. Procedure Note Bryan Kulkarni MD - 08/12/2017 EXAMINATION: MRI BRAIN WO CONTRAST CLINICAL HISTORY: Seizures, Seizure protocol TECHNIQUE: MRI brain noncontrast JOE protocol COMPARISON: None FINDINGS: There is normal signal characteristics the brain parenchyma. There is no evidence of mass, mass effect, midline shift or extra-axial fluidcollection. No heterotopia identified. No cortical dysplasia seen. There is normalmorphology and signal of the hippocampal formations and mesial temporal lobestructures.. No hemoglobin degradation products identified on the susceptibilitysequence. Midline structures are unremarkable. IMPRESSION Negative exam 7:56 AM Melisa Nelson MD IMG MRI ORDERABLES documented in this encounter Visit Diagnoses Not on filedocumented in this encounter Care Teams Refrigeration Technician Relationship Specialty Start Date End Date Tressa Saunders APRN PCP - General 02/19/10 01/06/19 documented as of this encounter
--- OUTSIDE RECORDS SUMMARY | 2023-12-28 15:09 | XMS_ITS | Encounter Summary ---
[place] [address] Care Team Providers Care Manager Beverage Name Role Phone Tressa Saunders APRN Primary Care Provider [phone] Encounter Details Date Type Department Care Team (Late st Contact Info) Description 08/24/2014 9:15 PM EDT - 08/24/2014 11:59 PM EDT [place] [address] Jan Ross MD [address] [place] [address], [place] [address] Discharge Disposition: Home Social History Tobacco Use [...] Sig Dispensed Refills Start Date End Date Calcium Carbonate-Vit D3-Min 600-400 mg-unit Tab Take 1 tablet by mouth daily. ibuprofen (Advil) 200 mg TabletIndications:pain Take 400 mg by mouth 2 times daily. Indications: Pain 08/29/2010 lisinopril (PRINIVIL;ZESTRIL) 10 mg tablet Take 5 mg by mouth daily. 01/07/2019 atorvastatin (LIPITOR) 10 mg tablet Take 20 mg by mouth daily. 01/01/2018 buPROPion (WELLBUTRIN) 100 mg tablet Take 100 mg by mouth daily. 08/29/2010 12/26/2016 hydrochlorothiazide (HYDRODIURIL) 25 mg tablet Take 6.25 mg by mouth daily. 01/01/2018 traMADol (ULTRAM) 50 mg tablet Take 50-100 mg by mouth every 8 hours as needed. 02/14/2022 documented as of this encounter Plan of Treatment Upcoming Encounters Date Type Department Care Team (Late st Contact Info) Description 02/19/2024 8:45 AM EST Office Visit Dermatology at [place] [address] [facility] [place] [address] Jan Ross MD [address], [place] [address] documented as of this encounter Procedures Procedure Name Priority Date/Time Associated Diagnosis Comments SURGICAL PATHOLOGY REPORT Routine 08/24/2014 12:00 PM EDT documented in this encounter Results * Surgical Pathology Report (08/24/2014 12:00 PM EDT) Final Diagnosis ? [facility] ? Provider: ?? JAN ROSS ?? Pt. Name: ?? HUSSAIN DASILVA ? Acc #: ?[id number] ? Pt. ? Col Date: ?? 08/24/2014 ? /Sex: ?1950,(63 years),Female ? Rec Date: ?? 08/24/2014 ? LOC: ?[facility] ? SURGICAL PATHOLOGY ? ---Pathologic Diagnosis--- ? Skin, forehead central, shave biopsy: ?- INVASIVE MALIGNANT MELANOMA, see template ? Histologic Type: ?Superficial spreading ? Ulceration: ? Not identified. ? Depth of Invasion: ?0.81 mm ? James's Level: ?IV ? Regression: ? Not identified. ? Vascular Invasion: ?Not identified. ? Perineural Invasion: ?Not identified. ? Microscopic Satellites: Cannot assess ? Dermal mitoses per mm2: 3 ? Tumor infiltrating ? lymphocytes: ?Non-brisk ? Solar Elastosis: ?Present ? Associated Nevus: ? Not identified. ? Margins: ? Peripheral Margins: ? Close (by MIS) ? Deep Margin: ?Positive (by invasive melanoma and MIS through ? adnexal structures) ? Pathologic TNM Codes: ?? pT1b Nx Mx ? CR-0 ? 08/25/14 ? BJM ? 08/29/14 Verified by: ? Augie Contreras MD ? Dermatopathologi st, Bone & Soft Tissue ? Pathologist ? (Electronic Signature) ? The attending pathologist whose signature appears on this report has ? reviewed all diagnostic slides and has edited the gross and/or ? microscopic portion of the report in rendering the final pathologic ? diagnosis. ? ---Gross Description--- ? A - Labeled/Fixative : Patient's name, formalin. ? Quantity/Size: Single, 1.0 x 0.9 cm shave. ? Tissue Description: Marr-brown skin with an eccentric 0.6 x 0.4 cm dark ? brown macule. ? Sections/Process ing: Inked, quadrisected. (T1) ??cjl ? [facility] ? Provider: ?? JAN ROSS ?? Pt. Name: ?? HUSSAIN DASILVA ? Acc #: ?[id number] ? Pt. ? Col Date: ?? 08/24/2014 ? /Sex: ?1950,(63 years),Female ? Rec Date: ?? 08/24/2014 ? LOC: ?[facility] ? SURGICAL PATHOLOGY ? ---Clinical Information--- ? Specimen Submitted: ? A - Forehead central, shave ? Clinical History: ? Darkening 6 mm papule x4 years with lateral extension ? Clinical Diagnosis: ? Dewayne K 08/29/2014 7:18 AM EDT [facility] SPECIMEN FROM SKIN / Unknown 08/24/2014 12:00 PM EDT 08/24/2014 12:00 PM EDT Jan Ross MD PATHOLOGY/CYTOLOGY [place] Performing Organization Address City/State/[facility] Co de Phone Number [facility] [place] [address] documented in this encounter Visit Diagnoses Not on filedocumented in this encounter Care Teams Manager Beverage Relationship Specialty Start Date End Date Tressa Saunders APRN PCP - General 02/19/10 01/06/19 documented as of this encounter
--- OUTSIDE RECORDS SUMMARY | 2023-12-28 15:09 | XMS_ITS | Encounter Summary ---
Author Organization [facility] [place] [address] Care Team Providers Care Infantry Weapons Crewmember Name Role Phone Tressa Saunders APRN Primary Care Provider [phone] Reason for Visit * Reason Comments Melanoma Encounter Details Date Type Department Care Team (Late st Contact Info) Description 09/18/2014 2:00 PM EDT Office Visit Dermatology at [place] [address] [facility] [place] [address] Jan Ross MD [address] [facility], [place] [address] Melanoma Discharge Disposition: Home Social History Tobacco Use Types Packs/Day Years Used Date Smoking Tobacco: Never Smokeless Tobacco: Never Alcohol Use Standard Drinks/Week Comments No 0 (1 standard drink = 0.6 oz pur e alcohol) Sex and Gender Information Value Date Recorded Sex Assigned at Not on file Gender Identity Not on file Sexual Orientation Not on file documented as of this encounter Patient Instructions * Patient Instructions* Idalia Sanon LPN - 09/18/2014 1:50 PM EDT Images from the original note were not included. [facility] Melanoma Excision: What to Expect at Home Your Recovery Excision of a melanoma is a type of surgery to remove, or excise, a melanoma from your skin. Melanoma is a form of skin cancer in which abnormal skin cells grow out of control. You may have stitches until the surgical wound heals. This may cause a scar that should fade with time. How quickly your wound heals depends on its size. Most wounds take 1 to 3 weeks to heal. If a large area of skin was removed, you may have a skin graft, and healing may take longer. Some soreness around the site of the wound is normal. Your doctor may recommend an jgvp-tsh-jkxrxoxwcecfofg or give you a prescription to help if you have pain. Your doctor may give you specific instructions on when you can do your normal activities again, such as driving and going back to work. This care sheet gives you a general idea about how long it will take for you to recover. But each person recovers at a different pace. Follow the steps below to get better as quickly as possible. How can you care for yourself at home? Activity ?? If you have stitches, check with your doctor about when you can do your normal activities. ?? If you have a skin graft, avoid exercise that stretches the skin graft for at least 3 weeks after surgery, unless your doctor gives you other instructions. Medicines ?? Be safe with medicines. Read and follow all instructions on the label. ?? If the doctor gave you a prescription medicine for pain, take it as prescribed. ?? If you are not taking a prescription pain medicine, ask your doctor if you can take an wztw-oqb-qqtordn medicine. Wound care ?? You will have a dressing over the wound. A dressing helps the wound heal and protects it. Your doctor will tell you how to take care of this. ?? If you have stitches, your doctor will tell you when to come back to have them removed. ?? If you have a skin graft, your doctor will tell you how to change the bandages and when you don't need them anymore. ?? Wash the area daily with warm, soapy water, and pat it dry. Don't use hydrogen peroxide or alcohol. They can slow healing. ?? You may shower 24 to 48 hours after surgery. Pat the wound dry. Do not take a bath for the first2 weeks, or until your doctor tells you it is okay. ?? If you have a skin graft, don't rub it for 3 to 4 weeks. Follow-up care is a abdi part of your treatment and safety. Be sure to make and go to all appointments, and call your doctor if you are having problems. It's also a good idea to know your test resultsand keep a list of the medicines you take. When should you call for help? Call 911 anytime you think you may need emergency care. For example, call if: ?? You passed out (lost consciousness). ?? You have severe trouble breathing. ?? You have sudden chest pain and shortness of breath, or you cough up blood. Call your doctor now or seek immediate medical care if: ?? You have pain that does not get better after you take pain medicine. ?? You have loose stitches, or your wound comes open. ?? You are bleeding from the wound. ?? You have symptoms of infection, such as: ?? Increased pain, swelling, warmth, or redness. ?? Red streaks leading from the wound. ?? Pus draining from the wound. ?? A fever. Watch closely for changes in your health, and be sure to contact your doctor if you have any problems. Where can you learn more? Visit our voxapp information library at http://[email or web address] You can also view health information on [employer], your personal patient account. Log in or sign up today. Enter S741 in the search box to learn more about Melanoma Excision: What to Expect at Home. ?? [id number] 6Scan, Grockit. Care instructions adapted under license by [facility]. This care instruction is for use with your licensed healthcare professional. If you have questions about a medical condition or this instruction, always ask your healthcare professional. [employer] disclaims any warranty or liability for your use of this information. Content Version: 10.4.636742; Current as of: February 10, 2014 documented in this encounter Progress Notes * Jan Ross MD - 09/18/2014 2:56 PM EDT Clinical Impression: Invasive malignant melanoma, 0.81-mm Breslow depth. Site: Central forehead. Size: 1 cm. Deep Suture: 3-0 Vicryl. Surface Suture: 5-0 Ethilon. Followup: In one week for suture removal and biopsy results. Indications for surgery, possible adverse outcomes, and activity restrictions were discussed. Informed verbal consent was obtained. The skin surface was prepared with 4% chlorhexidine and draped in the usual sterile manner. Local anesthesia with 1% lidocaine, 1:100,000 epinephrine, and 0.1 mEq/mL bicarbonate. Using a #15 blade and 1-cm margins, an elliptical incision was carried out around the lesion. Undermining performed peripherally. Hemostasis with electrodesiccation. Layered closure performed with specimen to Pathology. Wound dressed and wound care reviewed. End length of suture line was 4 cm. Follow up in one week for suture removal and biopsy results. COPY: Tressa Saunders A.P.R.N. documented in this encounter Miscellaneous Notes * Addendum Note - Jan Ross MD - 09/18/2014 3:00 PM EDTAddended by: JAN ROSS on: 09/18/2014 03:00 PM Modules accepted: Level of Service documented in this encounter Plan of Treatment Upcoming Encounters Date Type Department Care Team (Late st Contact Info) Description 02/19/2024 8:45 AM EST Office Visit Dermatology at [place] [address] [place] [address] Jan Ross MD [address] [facility], [place] [address] documented as of this encounter Visit Diagnoses Diagnosis Melanoma Melanoma of skin, site unspecified documented in this encounter Care Teams Infantry Weapons Crewmember Relationship Specialty Start Date End Date Tressa Saunders APRN PCP - General 02/19/10 01/06/19 documented as of this encounter
--- OUTSIDE RECORDS SUMMARY | 2023-12-28 15:09 | XMS_ITS | Encounter Summary ---
Author Organization [facility] [place] [address] Care Team Providers Care Diazo Technician Name Role Phone Tressa Saunders APRN Primary Care Provider [phone] Encounter Details Date Type Department Care Team (Late st Contact Info) Description 10/16/2010 [facility] [place] [address] Margo Maynard [facility] [place] [address] Social History Tobacco Use Types Packs/Day Years [...] 8:45 AM EST Office Visit Dermatology at [place] [address] [place] [phone] Jan Shook MD [address] [facility], [place] [address] documented as of this encounter Visit Diagnoses Not on filedocumented in this encounter Care Teams Diazo Technician Relationship Specialty Start Date End Date Tressa Saunders APRN PCP - General 02/19/10 01/06/19 documented as of this encounter
--- OUTSIDE RECORDS SUMMARY | 2023-12-28 15:09 | XMS_ITS | Encounter Summary ---
Author Organization [facility] [place] [address] Care Team Providers Care Wholesale Diamond Broker Name Role Phone DanielsFozia doansav Mccabe APRN Primary Care Provider [phone] Reason for Visit * Reason Comments Backache right leg Encounter Details Date Type Department Care Team (Latest Contact Info) Description 10/10/2010 8:15 AM EDT Office [place] [address] Flako Esparza MD [facility] [place] [address] Bryan Stokes MD [facility] [place] [address] Lumbar radiculopathy (Primary Dx); Thoracic or lumbosacral neuritis or radiculitis, unspecified Discharge Disposition: Home Social History Tobacco Use Types Packs/Day Years Used Date Smoking Tobacco: Never Smokeless Tobacco: Never Alcohol Use Standard Drinks/Week Comments No 0 (1 standard drink = 0.6 oz pur e alcohol) Sex and Gender Information Value Date Recorded Sex Assigned at Not on file Gender Identity Not on file Sexual Orientation Not on file documented as of this encounter Last Filed Vital Signs Vital Sign Reading Time Taken Comments Blood Pressure 137/89 10/10/2010 9:16 AM EDT Pulse 93 10/10/2010 9:16 AM EDT Temperature - - Respiratory Rate 18 10/10/2010 9:16 AM EDT Oxygen Saturation 100% 10/10/2010 9:16 AM EDT Inhaled Oxygen Concentration - - Weight - - Height 165.1 cm (5' 5) 10/10/2010 7:00 AM EDT Body Mass Index - - documented in this encounter Patient Instructions * Patient Instructions* Lata Quiñones RN - 10/10/2010 9:19 AM EDT Pain Management Center Discharge Instructions: You were seen by Dr. Bryan Stokes MD who performed right L5 transforaminal injection. [x] You may resume your normal activities: tomorrow. You may shower today. DO NOT tub bathe, use whirlpools, hot tubs or pool therapy for 2 days. RemoveBand-Aid(s) later today/tomorrow. Do not drive until tomorrow. Use caution walking/climbing stairs as you may be unsteady on your feet. You may use your usual medications, including pain medications, as directed, unless otherwise instructed. You may use an ice pack as needed for the first 24 hours, on for 20 minutes then off for 20 minutes. Do not apply heat today. Attempt to empty your bladder 4-6 hours after your procedure. You received the following medications:Lidocaine and Omnipaque (contrast dye) and Dexamethasone 10 mg. During regular business hours, please phone the Pain Management Center at for appointments or with any questions or if the following or other troubling symptoms develop: 2) Localized swelling, redness or drainage at the injection site(s). 3) Temperature of 101 degrees that lasts for more than 4 hours. After 5 PM or on weekends, call and ask for Pain Clinic provider on-call. If you are unable to reach the Pain Management Center and have a complication, please call your Primary Care Provider or proceed to your local emergency department. Lata Quiñones RN documented in this encounter Progress Notes * Flako Esparza MD - 10/10/2010 12:14 PM EDT I was the attending physician supervising the resident in the above care. For the purposes of billing, the resident provided the care. * Lata Quiñones RN - 10/10/2010 8:51 AM EDT Pre-Procedure Screening Questions: 1. Status: No 2. 3. Patient states they have a hog driver to transport after procedure? Yes 4. Patient taking antibiotics at present? Yes 5. NPO per Pain Management Center protocol? No 6. 7. Patient diabetic: No 8. Patient routinely taking anticoagulants ? No Patient Vital Signs documented in Doc Flowsheets associated with this encounter. Patient Discharge Instructions were reviewed with patient and copy provided to patient. documented in this encounter Procedure Notes * Bryan Stokes MD - 10/10/2010 9:29 AM EDTAssociated Order(s): TRANSFORAMINAL INJECTION Pre-Procedure Diagnose(s): Lumbar radiculopathy LUMBAR / SACRAL TRANSFORAMINAL INJECTION Sanjuanita Dasilva has been referred to the Pain Management Center for a transforaminal nerve root block and steroid injection. COMMENTS: Rt sided radicular sxs. Here for rt L5 TFESI. Images reviewed Sanjuanita Dasilva was interviewed and the medical record reviewed. There were no medical, pharmacologic, radiographic or other structural contraindications to attempting fluoroscopically guided transforaminal nerve root block and epidural steroid injection. Risks and expected side effects as well as potential benefit of the procedure were reviewed with Sanjuanita Dasilva, and her voiced concerns addressed. The printed consent form was signed and witnessed. Standard time-out procedure was performed. Sanjuanita Dasilva was placed in the prone position on the fluoroscopy table and automated blood pressure cuff and pulse oximeter applied. Fluoroscopy was utilized to identify the L-5 vertebral body. The right-sided oblique projection was then fashioned to see the neck of the celine-dog at the L-5 neural foramen between L-5 and S1 Ala. A skin mick was made for the needle insertion site. A Chlorhexadine prep was carried out, and sterile drapes were applied. Local anesthesia was achieved in theskin and subcutaneous tissues. A 22 gauge curved tip spinal needle was then inserted, advanced withfluoroscopic guidance until it entered into the neural foramen, confirmed on the lateral view. After negative aspiration, 1 cc of Omnipaque 240 was injected. This showed a good spread of dye transforaminally into the epidural space. After repeat negative aspiration 1.0 mg Decadron was injected, followed by 1 cc's of 1% Xylocaine flush for the nerve root block, as well. There was no unusual discomfort expressed by Sanjuanita Dasilva. The needle was withdrawn. The patient tolerated the procedure well. A Band-Aid was applied. Diagnosis: Lumbar Ridiculitis Procedure: Rt L5 Transforaminal LORI Sajnuanita Dasilva's vital signs were stable throughout the procedure and were as recorded in nursing records. Intravenous drugs for sedation and analgesia were not given as ordered by me. Single Dose Vial usage/waste Medication Vial Size Used Wasted Bupivacaine .25% 30ml Bupivacaine .5% 30ml Celestone 6mg/ml 5ml Depomedrol 40mg 1ml Depomedrol 80mg 1ml Dexamethasone 10mg/1ml 1 ml 1 Lidocaine 1% 30ml Omnipaque 180mgI/ml 50ml Omnipaque 240mgI/ml 50ml 2 Omnipaque 360mgI/ml 50ml Triamcinolone 40mg/ml 1ml Follow up plan and appointments were discussed with Sanjuanita Dasilva. Post procedure instructions were given as documented in nursing records and having met discharge criteria, she was dischargedfrom the Pain Management Center. COMMENTS: Tolerated procedure well. F/U with Shalonda Maynard as scheduled. Bryan Stokes MD Pain Fellow [facility] documented in this encounter Miscellaneous Notes * Miscellaneous - Phillip Staking Technician - 10/14/2010 2:58 PM EDT documented in this encounter Plan of Treatment Upcoming Encounters Date Type Department Care Team (Late st Contact Info) Description 02/19/2024 8:45 AM EST Office Visit Dermatology at [address] [place] [phone] Jan Shook MD [address] [facility] [address], [place] [address] documented as of this encounter Procedures Procedure Name Priority Date/Time Associated Diagnosis Comments TRANSFORAMINAL INJECTION Routine 10/10/2010 9:29 AM EDT Lumbar radiculopathy documented in this encounter Results * TRANSFORAMINAL INJECTION (10/10/2010 9:29 AM EDT) Narrative Bryan Stokes MD - 10/10/2010 9:29 AM EDT LUMBAR / SACRAL TRANSFORAMINAL INJECTION Sanjuanita Dasilva has been referred to the Pain Management Center for a transforaminal nerve root block and steroid injection. ??COMMENTS: Rt sided radicular sxs. ??Here for rt L5 TFESI. ??Images reviewed Sanjuanita Dasilva was interviewed and the medical record reviewed. ?? There were no medical, pharmacologic, radiographic or other structural contraindications to attempting fluoroscopically guided transforaminal nerve root block and epidural steroid injection. ??Risks and expected side effects as well as potential benefit of the procedure were reviewed with Sanjuanita Dasilva, and her voiced concerns addressed. ??The printed consent form was signed and witnessed. ??Standard time-out procedure was performed. Sanjuanita Dasilva was placed in the prone position on the fluoroscopy table and automated blood pressure cuff and pulse oximeter applied. ?? Fluoroscopy was utilized to identify the L-5 vertebral body. ??The right-sided oblique projection was then fashioned to see the neck of the celine-dog at the L-5 neural foramen between L-5 and S1 Ala. ??A skin mick was made for the needle insertion site. ??A Chlorhexadine prep was carried out, and sterile drapes were applied. ??Local anesthesia was achieved in the skin and subcutaneous tissues. ??A 22 gauge curved tip spinal needle was then inserted, advanced with fluoroscopic guidance until it entered into the neural foramen, confirmed on the lateral view. ??After negative aspiration, 1 cc of Omnipaque 240 was injected. ??This showed a good spread of dye transforaminally into the epidural space. ??After repeat negative aspiration 1.0 mg Decadron was injected, followed by 1 cc's of 1% Xylocaine flush for the nerve root block, as well. ??There was no unusual discomfort expressed by Sanjuanita Dasilva. ??The needle was withdrawn. The patient tolerated the procedure well. ??A Band-Aid was applied. Diagnosis: ??Lumbar Ridiculitis Procedure: ??Rt L5 Transforaminal LORI Sanjuanita Dasilva's vital signs were stable throughout the procedure and were as recorded in nursing records. ??Intravenous drugs for sedation and analgesia were not given as ordered by me. Single Dose Vial usage/waste Medication Vial Size Used Wasted Bupivacaine .25% 30ml ?? Bupivacaine .5% ??30ml ?? Celestone 6mg/ml 5ml ?? Depomedrol 40mg 1ml ?? Depomedrol 80mg 1ml ?? Dexamethasone 10mg/1ml 1 ml 1 ?? Lidocaine 1% 30ml ?? Omnipaque 180mgI/ml 50ml ?? Omnipaque 240mgI/ml 50ml 2 ?? Omnipaque 360mgI/ml 50ml ?? Triamcinolone 40mg/ml 1ml ?? Follow up plan and appointments were discussed with Sanjuanita Dasilva. Post procedure instructions were given as documented in nursing records and having met discharge criteria, she was discharged from the Pain Management Center. COMMENTS: Tolerated procedure well. ??F/U with Shalonda Maynard as scheduled. Bryan Stokes MD Pain Fellow [facility] Procedure Note Bryan Stokes MD - 10/10/2010 9:29 AM EDT LUMBAR / SACRAL TRANSFORAMINAL INJECTION Sanjuanita Dasilva has been referred to the Pain Management Center for atransforaminal nerve root block and steroid injection. COMMENTS: Rt sidedradicular sxs. Here for rt L5 TFESI. Images reviewed Sanjuanita Dasilva was interviewed and the medical record reviewed.There were no medical, pharmacologic, radiographic or other structuralcontraindications to attempting fluoroscopically guided transforaminalnerve root block and epidural steroid injection. Risks and expected sideeffects as well as potential benefit of the procedure were reviewed withSanjuanita Dasilva, and her voiced concerns addressed. The printedconsent form was signed and witnessed. Standard time-out procedure wasperformed. Sanjuanita Dasilva was placed in the prone position on the fluoroscopytable and automated blood pressure cuff and pulse oximeter applied.Fluoroscopy was utilized to identify the L-5 vertebral body. Theright-sided oblique projection was then fashioned to see the neck of thepalaky-dog at the L-5 neural foramen between L-5 and S1 Ala. A skin markwas made for the needle insertion site. A Chlorhexadine prep was carriedout, and sterile drapes were applied. Local anesthesia was achieved inthe skin and subcutaneous tissues. A 22 gauge curved tip spinal needlewas then inserted, advanced with fluoroscopic guidance until it enteredinto the neural foramen, confirmed on the lateral view. After negativeaspiration, 1 cc of Omnipaque 240 was injected. This showed a good spreadof dye transforaminally into the epidural space. After repeat negativeaspiration 1.0 mg Decadron was injected, followed by 1 cc's of 1%Xylocaine flush for the nerve root block, as well. There was no unusualdiscomfort expressed by Sanjuanita Dasilva. The needle was withdrawn.The patient tolerated the procedure well. A Band-Aid was applied. Diagnosis: Lumbar Ridiculitis Procedure: Rt L5 Transforaminal LORI Sanjuanita Dasilva's vital signs were stable throughout the procedureand were as recorded in nursing records. Intravenous drugs for sedationand analgesia were not given as ordered by me. Single Dose Vial usage/waste Medication Vial Size Used Wasted Bupivacaine .25% 30ml Bupivacaine .5% 30ml Celestone 6mg/ml 5ml Depomedrol 40mg 1ml Depomedrol 80mg 1ml Dexamethasone 10mg/1ml 1 ml 1 Lidocaine 1% 30ml Omnipaque 180mgI/ml 50ml Omnipaque 240mgI/ml 50ml 2 Omnipaque 360mgI/ml 50ml Triamcinolone 40mg/ml 1ml Follow up plan and appointments were discussed with Sanjuanita Dasilva.Post procedure instructions were given as documented in nursing recordsand having met discharge criteria, she was [facility] from the [facility]. COMMENTS: Tolerated procedure well. F/U with Shalonda Maynard as scheduled. Bryan Stokes MD Pain Fellow [facility] Flako Esparza MD PROCEDURE/MINOR S URGICAL ORDERABLES documented in this encounter Visit Diagnoses Diagnosis Lumbar radiculopathy- Primary Thoracic or lumbosacral neuritis or radiculitis, unspecified Thoracic or lumbosacral neuritis or radiculitis, unspecified documented in this encounter Administered Medications Inactive Administered Medications - up to 3 most recent administrations Medication Order MAR Action Action Date Dose Rate Site dexamethasone sodium (PF) injection 20 mg 20 mg, Intramuscular, ONCE, 1 dose, On Charleen 10/10/10 at 0915, Routine Given 10/10/2010 9:15 AM EDT 20 mg iohexol (OMNIPAQUE) injection 50 mL 50 mL, Intravenous, ONCE PRN, 1 dose, Starting on Charleen 10/10/10 at 0847, Until Charleen 10/10/10 at 0800, Per Protocol, Routine Given 10/10/2010 8:00 AM EDT 50 mLs lidocaine (PF) (XYLOCAINE) 10 mg/mL (1 %) injection 20 mg 20 mg, Subdermal, ONCE, 1 dose, On Charleen 10/10/10 at 0915, Routine Given 10/10/2010 9:15 AM EDT 20 mg documented in this encounter Care Teams Wholesale Diamond Broker Relationship Specialty Start Date End Date Tressa Saunders APRN PCP - General 02/19/10 01/06/19 documented as of this encounter
--- OUTSIDE RECORDS SUMMARY | 2023-12-28 15:09 | XMS_ITS | Encounter Summary ---
Author Organization [facility] [place] [address] Care Team Providers Care Laboratory Monitor Name Role Phone Mercedez Salmeron APRN Primary Care Provider [phone] Encounter Details Date Type Department Care Team (Latest Contact Info) Description 02/17/2023 Travel Social History Tobacco Use Types Packs/Day Years [...] 8:45 AM EST Office Visit Dermatology at [address] [place] [phone] Jan Shook MD [address] [facility], [place] [address] documented as of this encounter Visit Diagnoses Not on filedocumented in this encounter Care Teams Laboratory Monitor Relationship Specialty Start Date End Date Mercedez Salmeron APRN PCP - General Family Medicine 01/07/19 documented as of this encounter
--- OUTSIDE RECORDS SUMMARY | 2023-12-28 15:09 | XMS_ITS | Encounter Summary ---
Author Organization [facility] [place] [address] Care Team Providers Care Heavy Lift Rigger Name Role Phone Tressa Saunders APRN Primary Care Provider [phone] Encounter Details Date Type Department Care Team (Late st Contact Info) Description 09/18/2014 9:45 PM EDT - 09/18/2014 11:59 PM EDT Hospital [place] [address] Jan Ross MD [address] [facility], [place] [address] Discharge Disposition: Home Social History Tobacco Use [...] 8:45 AM EST Office Visit Dermatology at [place] [address] [place] [address] Jan Ross MD [address], [place] [address] documented as of this encounter Procedures Procedure Name Priority Date/Time Associated Diagnosis Comments SURGICAL PATHOLOGY REPORT Routine 09/18/2014 12:00 PM EDT documented in this encounter Results * Surgical Pathology Report (09/18/2014 12:00 PM EDT) Final Diagnosis ? [facility] ? Provider: ?? JAN ROSS ?? Pt. Name: ?? HUSSAIN DASILVA ? Acc #: ?[id number] ? Pt. ? Col Date: ?? 09/18/2014 ? /Sex: ?1950,(64 years),Female ? Rec Date: ?? 09/18/2014 ? LOC: ?[facility] ? SURGICAL PATHOLOGY ? ---Pathologic Diagnosis--- ? Skin, central forehead, excision: ?1. Scar, consistent with prior surgical procedure. ?2. No residual melanoma identified. ?3. Incidental dermal nevus, completely excised. ? CR-0 ? 09/19/14 ? [facility] ? 09/22/14 Verified by: ? Walt OLIVER, Cassandra Adams ? Dermatopathologist ? (Electronic Signature) ? The attending pathologist whose signature appears on this report has ? reviewed all diagnostic slides and has edited the gross and/or ? microscopic portion of the report in rendering the final pathologic ? diagnosis. ? ---Comment--- ? Prior biopsy, [id number] is reviewed. ??Multiple deeper levels have been ? examined. ? ---Gross Description--- ? A - Labeled/Fixative: Patient demographics, formalin. ? Quantity/Size: Single, 2.7 x 1.5 x 0.3 cm. ? Tissue Description: An ellipse of centrally umbilicated, pink-whitley skin. ? Sections/Processing: The specimen is inked and serially sectioned. ? The ends are submitted in (1); the remainder in (2-5). (T5) ??ejr ? ---Clinical Information--- ? Specimen Submitted: ? A - Central forehead, excision ? Clinical History: ? Shave biopsy proven MM, [id number] for excision ? Clinical Diagnosis: ? Scar ? Report to: ? Jan Ross III, MD ? Dermatology ? [address] [facility], [address] ? [facility] ? Provider: ?? JAN ROSS ?? Pt. Name: ?? PHUHUSSAIN L ? Acc #: ?[id number] ? Pt. ? Col Date: ?? 09/18/2014 ? /Sex: ?1950,(64 years),Female ? Rec Date: ?? 09/18/2014 ? LOC: ?[facility] ? SURGICAL PATHOLOGY ? [place], [place] ??[address] ? Ph: ??[phone] ? 09/22/2014 10:56 AM EDT [facility] SPECIMEN FROM SKIN / Unknown 09/18/2014 12:00 PM EDT 09/18/2014 12:00 PM EDT Jan Ross MD PATHOLOGY/CYTOLOGY O [place] Performing Organization Address City/State/[facility] de Phone Number NIKI [facility] [place] [address] documented in this encounter Visit Diagnoses Not on filedocumented in this encounter Care Teams Heavy Lift Rigger Relationship Specialty Start Date End Date Tressa Saunders APRN PCP - General 02/19/10 01/06/19 documented as of this encounter
--- OUTSIDE RECORDS SUMMARY | 2023-12-28 15:09 | XMS_ITS | Encounter Summary ---
Author Organization [facility] [place] [address] Care Team Providers Care Systems Programmer Analyst Name Role Phone Tressa Saunders APRN Primary Care Provider [phone] Encounter Details Date Type Department Care Team (Late st Contact Info) Description 09/11/2010 [facility] [place] [address] Margo Maynard [facility] [address] Social History Tobacco Use Types Packs/Day Years [...] 8:45 AM EST Office Visit Dermatology at [place] [address] [facility] [place] [address] Jan Shook MD [address] [facility], [place] [address] documented as of this encounter Visit Diagnoses Not on filedocumented in this encounter Care Teams Systems Programmer Analyst Relationship Specialty Start Date End Date Tressa Saunders APRN PCP - General 02/19/10 01/06/19 documented as of this encounter
--- OUTSIDE RECORDS SUMMARY | 2023-12-28 15:09 | XMS_ITS | Encounter Summary ---
Author Organization [facility] [place] [address] Care Team Providers Care Top Lift And Automatic Window Repairer Name Role Phone Tressa Saunders APRN Primary Care Provider [phone] Encounter Details Date Type Department Care Team (Late st Contact Info) Description 01/05/2018 External [place] [id number] Provider, Scanning Social History Tobacco Use Types Packs/Day Years [...] 8:45 AM EST Office Visit Dermatology at [place] [address] [place] [address] Jan Shook MD [address] [facility], [place] [address] documented as of this encounter Procedures Procedure Name Priority Date/Time Associated Diagnosis Comments CYTOLOGY SCAN Routine 01/05/2018 documented in this encounter Results * Scan Doc: Cytology (01/05/2018) Historical Provider MD OMER MGR SCAN EX T ORDR/RSLT documented in this encounter Visit Diagnoses Not on filedocumented in this encounter Care Teams Top Lift And Automatic Window Repairer Relationship Specialty Start Date End Date Tressa Saunders APRN PCP - General 02/19/10 01/06/19 documented as of this encounter
--- OUTSIDE RECORDS SUMMARY | 2023-12-28 15:09 | XMS_ITS | Encounter Summary ---
Author Organization [facility] [place] [address] Care Team Providers Care Shipping/Receiving Manager Name Role Phone Mercedez Salmeron AUDIO/VISUAL MANAGER Primary Care Provider [phone] Reason for Visit * Reason Comments Follow-up Skin Check Encounter Details Date Type Department Care Team (Late st Contact Info) Description 01/07/2019 10:00 AM EDT Office Visit Dermatology at [address] [address] Jan Shook MD [address] [facility], [place] [address] History of malignant melanoma; Other seborrheic keratosis [...] Progress Notes * Jan Shook MD - 01/07/2019 10:00 AM EDT Problem: 1. Yearly skin checkup 2. History of malignant melanoma, central forehead, 0.81 mm Breslow depth excised August 2014 Lilian follows today with her Eugenio. She had a better year this year than last. Her epilepsy has not resurfaced and she may be able to stop her Keppra eventually. She has not noted any new lesions of concern. Physical examination reveals a pleasant 68-year-old woman who has a well-healed horizontal scar in the central forehead with no evidence of recurrent pigmentation there. She has no cervical adenopathy. She has several large solar lentigos on the left lateral cheek, 1 smaller site on the right inferior lateral cheek. She is a benign examination of the head and the neck the chest the back the handsthe arms forearms thighs and the calves. Assessment plan: History of malignant melanoma 0.81 mm Breslow depth August 2014 1. Patient reassured about her benign examination today 2. Continue our once yearly skin checks 3. Continue sun avoidance precautions. CC: Mercedez Salmeron APRN documented in this encounter Plan of Treatment Upcoming Encounters Date Type Department Care Team (Late st Contact Info) Description 02/19/2024 8:45 AM EST Office Visit Dermatology at [address] [address] Jan Shook MD [address] [facility], [place] [address] documented as of this encounter Visit Diagnoses Diagnosis History of malignant melanoma Personal history of malignant melanoma of skin Other seborrheic keratosis documented in this encounter Care Teams Shipping/Receiving Manager Relationship Specialty Start Date End Date Mercedez Salmeron APRN PCP - General Family Medicine 01/07/19 documented as of this encounter
--- OUTSIDE RECORDS SUMMARY | 2023-12-28 15:09 | XMS_ITS | Encounter Summary ---
Author Organization [facility] [place] [address] Care Team Providers Care President Ergonomic Consulting Name Role Phone [place] Tressa Estelle OSMAN Primary Care Provider [phone] Reason for Visit * Reason Comments Suture / Staple Removal Encounter Details Date Type Department Care Team (Late st Contact Info) Description 09/25/2014 3:30 PM EDT Office Visit Dermatology at [address] [address] Jan Shook MD [address] [facility], [place] [address] Visit for suture removal Discharge Disposition: Home Social History Tobacco Use [...] Progress Notes * Jan Shook MD - 09/25/2014 3:32 PM EDT Problem: Followup for suture removal and biopsy results. Zara follows up and had a good postoperative period following the excision of the melanoma from her central forehead. Biopsy showed scar tissue without residual tumor. Assessment and Plan: Status post excision of malignant melanoma, 0.81-mm Breslow depth, central forehead. a. Sutures removed. b. May discontinue wound care instructions. c. I recommended I see the patient back again in another six months for repeat check. d. I reinforced sun avoidance precautions. The patient does know to follow. e. Return to clinic in six months. documented in this encounter Plan of Treatment Upcoming Encounters Date Type Department Care Team (Late st Contact Info) Description 02/19/2024 8:45 AM EST Office Visit Dermatology at [place] [address] [facility] [place] [address] Jan Shook MD [address] [facility], [place] [address] documented as of this encounter Visit Diagnoses Diagnosis Visit for suture removal Encounter for removal of sutures documented in this encounter Care Teams President Ergonomic Consulting Relationship Specialty Start Date End Date Tressa Saunders APRN PCP - General 02/19/10 01/06/19 documented as of this encounter
--- OUTSIDE RECORDS SUMMARY | 2023-12-28 15:09 | XMS_ITS | Encounter Summary ---
Author Organization [facility] [place] [address] Care Team Providers Care Director Outpatient Services Name Role Phone [place] do[place] Estelle OSMAN Primary Care Provider [phone] Reason for Visit * Reason Comments Skin Check Encounter Details Date Type Department Care Team (Late st Contact Info) Description 01/01/2018 10:00 AM EDT Office Visit Dermatology at [address] [place] [address] Jan Shook MD [address] [facility], [place] [address] History of malignant melanoma; Other seborrheic keratosis [...] Progress Notes * Jan Shook MD - 01/01/2018 10:00 AM EDT Problem: 1. Yearly skin checkup 2. History of malignant melanoma, central forehead, 0.81 mm Breslow depth excised August 2014 Lilian follows up and is today here with her Eugenio. She has had a tough last year. She wasdiagnosed with epilepsy in June, she lost two brothers, and was diagnosed as hypothyroid. The etiology for her epilepsy was not determined. She is also retired. She has not noted any particular lesions of concern today. Physical examination reveals a pleasant 67-year-old woman who has a well-healed horizontal scar in the central forehead with no evidence of recurrent pigmentation there. She has no cervical adenopathy. She continues to have large swollen to goes on the lateral cheeks left more than right. She is numerous small junctional blastic nevi on the back. She is a benign examination of the head and the neck the chest the back the hands informs thighs and the calves. Assessment and plan: History of malignant melanoma 0.81 mm Breslow depth August 2014 1. Patient reassured about her benign skin examination 2. Continue our once yearly skin Checkups 3. Continue with sun avoidance Precautions. CC: Tressa Saunders APRN documented in this encounter Plan of Treatment Upcoming Encounters Date Type Department Care Team (Late st Contact Info) Description 02/19/2024 8:45 AM EST Office Visit Dermatology at [place] [address] [facility] [place] [address] Jan Shook MD [address] [facility], [place] [address] documented as of this encounter Visit Diagnoses Diagnosis History of malignant melanoma Personal history of malignant melanoma of skin Other seborrheic keratosis documented in this encounter Care Teams Director Outpatient Services Relationship Specialty Start Date End Date Tressa Saunders APRN PCP - General 02/19/10 01/06/19 documented as of this encounter
--- OUTSIDE RECORDS SUMMARY | 2023-12-28 15:09 | XMS_ITS | Encounter Summary ---
Author Organization [facility] [place] [address] Care Team Providers Care Dumb Waiter Operator Name Role Phone Mercedez Salmeron Deric OSMAN Primary Care Provider [phone] Reason for Visit * Reason Comments Annual Exam Encounter Details Date Type Department Care Team (Late st Contact Info) Description 02/08/2021 8:45 AM EST Office Visit Dermatology at [address] [place] [address] Jan Shook MD [address] [facility] Christiana DERMATOLOGY [place], [place] [id number] History of malignant melanoma; Other seborrheic keratosis [...] Progress Notes * Jan Shook MD - 02/08/2021 8:45 AM EST Problem: 1. ??Yearly skin checkup 2. ??History of malignant melanoma, central forehead, 0.81 mm Breslow depth excised August 2014 Sanjuanita follows up today for her yearly skin checkup. She is here with her Eugenio. She hasbeen dealing with diverticulitis recently. She has had 2 bouts in the last 2 months. Fortunately a recent surgical consult determined that she would not likely need to have any bowel resection/surgery. She has not noticed any new skin lesions of concern. Physical examination reveals a pleasant 70-year-old woman who has a benign examination of the head the chest the back the hands arms forearms thighs and calves. She has a well-healed horizontal scar in the central forehead with no evidence of recurrent pigmentation there. She has no cervical adenopathy. Assessment plan: History of malignant melanoma, 0.81 mm Breslow depth August 2014 1. Patient reassured about her benign skin check of today 2. Continue sun avoidance precautions 3. Return to clinic in a year for repeat check. CC: Mercedez Salmeron APRN documented in this encounter Plan of Treatment Upcoming Encounters Date Type Department Care Team (Late st Contact Info) Description 02/19/2024 8:45 AM EST Office Visit Dermatology at [address] [address] Jan Shook MD [address] [facility] [place] [address] documented as of this encounter Visit Diagnoses Diagnosis History of malignant melanoma Personal history of malignant melanoma of skin Other seborrheic keratosis documented in this encounter Care Teams Dumb Waiter Operator Relationship Specialty Start Date End Date Mercedez Salmeron APRN PCP - General Family Medicine 01/07/19 documented as of this encounter
--- OUTSIDE RECORDS SUMMARY | 2023-12-28 15:09 | XMS_ITS | Encounter Summary ---
Author Organization [facility] [place] [address] Care Team Providers Care Lab Technician Name Role Phone [place] Tressa Estelle OSMAN Primary Care Provider [phone] Reason for Visit * Reason Comments Skin Check Encounter Details Date Type Department Care Team (Late st Contact Info) Description 06/20/2016 8:45 AM EDT Office Visit Dermatology at [address] [place] [address] Jan Shook MD 580 [facility], [place] [address] History of malignant melanoma; Other seborrheic keratosis [...] Progress Notes * Jan Shook MD - 06/20/2016 8:45 AM EDT PROBLEM: 1. History of malignant melanoma, central forehead, 0.81 mm Breslow depth, excised 08/2014. 2. Six-month skin checkup. Lilian follows up with her , Eugenio. She has been doing well. She has not noted any new lesions of concern. Physical examination reveals a pleasant 65-year-old woman who has a very well-healed horizontal scar on the central forehead with no evidence of recurrent pigmentation. She has no cervical adenopathy. She has 2 large solar lentigos on the left lateral cheek. One is 2 cm and one is 3 cm in diameter. She has one 2-cm solar lentigo on the right lower cheek medially near her chin. She has numerous mildly atypical nevi on the back. She does have a benign examination of the head and the neck, the chest, the back, hands, arms, forearms, thighs and the calves, soles of the feet, toe web spaces, and also of the hair part line. A/P: Status post excision malignant melanoma, 0.81 mm Breslow depth, 08/2014. a. Patient reassured about benign examination today. b. Return to clinic in 6 months for repeat check, and then will plan followups just once yearly thereafter. c. Continue sun avoidance precautions, and continue her monthly self-skin examinations. She will let me know if she sees anything of concern in between visits. cc: Tressa Saunders APRN documented in this encounter Plan of Treatment Upcoming Encounters Date Type Department Care Team (Late st Contact Info) Description 02/19/2024 8:45 AM EST Office Visit Dermatology at [place] [address] [place] [address] Jan Shook MD 580 [facility] [place] [address] documented as of this encounter Visit Diagnoses Diagnosis History of malignant melanoma Personal history of malignant melanoma of skin Other seborrheic keratosis documented in this encounter Care Teams Lab Technician Relationship Specialty Start Date End Date Tressa Saunders APRN PCP - General 02/19/10 01/06/19 documented as of this encounter
--- OUTSIDE RECORDS SUMMARY | 2023-12-28 15:09 | XMS_ITS | Encounter Summary ---
Author Organization [facility] [place] [address] Care Team Providers Care Narcotics Agent Name Role Phone Mercedez Salmeron DAWSON Primary Care Provider [phone] Encounter Details Date Type Department Care Team (Late st Contact Info) Description 11/18/2007 Orders [place] [address] Chano Rocha MD [facility] [place] [address] Social History Tobacco Use Types Packs/Day Years [...] 8:45 AM EST Office Visit Dermatology at [place] [address] [facility] [place] [address] Jan Shook MD 580 [facility], [place] [address] documented as of this encounter Procedures Procedure Name Priority Date/Time Associated Diagnosis Comments SURGICAL PATHOLOGY REPORT Routine 11/18/2007 10:12 AM EDT documented in this encounter Results * Surgical Pathology Report (11/18/2007 10:12 AM EDT) Surgical Pathology Report [id number] ? [facility]; A The signing pathologist has (i) examined the relevant preparation(s) for the specimen(s) and (ii) rendered or confirmed the diagnosis(es). . ?Pathology Surgical Pathology Final Report Clinical Information Specimen Submitted: A - Disc material L5-S1: ??Lower Back Clinical History: Not provided Clinical Diagnosis: Left L5-S1 HNP Gross Description Labeled/Fixativ e: ? Disc material L5-S1, lower back; fresh. Quantity/Size: ?Multiple, 2.0 x 2.0 x 1.0 cm. Tissue Description: ?? Dense, ramirez-white, friable fragments. Sections/Proces sing: ??No sections are submitted. ??aje/SNS Diagnosis Intervertebral disc, L5-S1. ?? Gross surgical pathology examination. CR-0 11/19/07 AJE 11/19/07 Verified by: ? Black DO, Demi C. ?Pathologist ?(Electronic Signature) The attending pathologist whose signature appears on this report has reviewed all diagnostic slides and has edited the gross and/or microscopic portion of the report in rendering the final pathologic diagnosis. NIKI JUARES 11/18/2007 10:1 2 AM EDT Chano Rocha MD PATHOLOGY/CYTOLOGY O [facility] NIKI JUARES documented in this encounter Visit Diagnoses Not on filedocumented in this encounter Care Teams Narcotics Agent Relationship Specialty Start Date End Date Mercedez Salmeron APRN PCP - General Family Medicine 01/07/19 documented as of this encounter
--- OUTSIDE RECORDS SUMMARY | 2023-12-28 15:09 | XMS_ITS | Encounter Summary ---
Author Organization [facility] [place] [address] Care Team Providers Care Sales Center Manager Name Role Phone PayetteTressa doan Estelle OSMAN Primary Care Provider [phone] Reason for Visit * Reason Comments Skin Check Encounter Details Date Type Department Care Team (Late st Contact Info) Description 12/21/2015 9:15 AM EDT Office Visit Dermatology at [address] [place] [address] Jan Shook MD 580 [facility], [place] [address] History of malignant melanoma Social History Tobacco Use Types Packs/Day Years [...] Progress Notes * Jan Shook MD - 12/21/2015 9:15 AM EDT PROBLEM: 1. History of malignant melanoma, central forehead, 0.81 mm Breslow depth excised August 2014. 2. Six month skin checkup. Lilian follows up and has been doing well. She states that she has not noted any new pigmented lesions of concern. Physical examination reveals a pleasant 65-year-old woman who has a benign examination today of the forehead, with a well healed horizontal scar on the central forehead. There is no recurrent pigmentation. She has 2 large solar lentigos on the left lateral cheek, one 2 and one 3 cm in diameter, and one on the right lower cheek near the chin. She has numerous mildly atypical nevi on her back. She has no cervical adenopathy. Examination of the head and neck, chest, back, hands, forearms, thighs and calves was otherwise benign. ASSESSMENT AND PLAN: Status post excision malignant melanoma 0.81 mm Breslow depth central forehead August 2014. a. Patient was assured of benign examination today. b. Continue q.6 month followups for 2 years and then once a year thereafter. c. Continue sun avoidance precautions. CC: Tressa Saunders APRN documented in this encounter Plan of Treatment Upcoming Encounters Date Type Department Care Team (Late st Contact Info) Description 02/19/2024 8:45 AM EST Office Visit Dermatology at [address] [address] Jan Shook MD 580 [facility], [place] [address] documented as of this encounter Visit Diagnoses Diagnosis History of malignant melanoma Personal history of malignant melanoma of skin documented in this encounter Care Teams Sales Center Manager Relationship Specialty Start Date End Date Tressa Saunders APRN PCP - General 02/19/10 01/06/19 documented as of this encounter
--- OUTSIDE RECORDS SUMMARY | 2023-12-28 15:09 | XMS_ITS | Encounter Summary ---
Author Organization [facility] [place] [address] Care Team Providers Care Material Scheduler Name Role Phone Mercedez Salmeron DAWSON Primary Care Provider [phone] Encounter Details Date Type Department Care Team (Late st Contact Info) Description 12/30/2007 Orders Only [place] [address] Chano Rocha MD [facility] [place] [address] Social History Tobacco Use Types Packs/Day Years [...] 8:45 AM EST Office Visit Dermatology at [place] [address] [facility] [place] [address] Jan Shook MD 580 [facility], [place] [address] documented as of this encounter Procedures Procedure Name Priority Date/Time Associated Diagnosis Comments SURGICAL PATHOLOGY REPORT Routine 12/30/2007 4:30 PM EDT documented in this encounter Results * Surgical Pathology Report (12/30/2007 4:30 PM EDT) Surgical Pathology Report [id number] ? Location: [facility] The signing pathologist has (i) examined the relevant preparation(s) for the specimen(s) and (ii) rendered or confirmed the diagnosis(es). . ?Pathology Surgical Pathology Final Report Clinical Information Specimen Submitted: A - Disc Material L5-S1; Spine Clinical History: Not provided Clinical Diagnosis: Recurrent L5-S1 HNP Gross Description Labeled/Fixativ e: ? Disc material L5-S1, fresh. Quantity/Size: ?Multiple, 3.0 x 1.0 x 1.0 cm. Tissue Description: ?? Dense, ramirez-white, friable fragments. Sections/Proces sing: ??No sections are submitted. ??aje/SNS Diagnosis Intervertebral disc, L5-S1. ?? Gross surgical pathology examination. CR-0 01/03/08 AJE 01/03/08 Verified by: ? Kena OLIVER, Mann ?Pathologist ?(Electronic Signature) The attending pathologist whose signature appears on this report has reviewed all diagnostic slides and has edited the gross and/or microscopic portion of the report in rendering the final pathologic diagnosis. NIKI JUARES 12/30/2007 4:30 PM EDT Chano Rocha MD PATHOLOGY/CYTOLOGY O RDERABLES Performing Organization Address City/State/[facility] Co de Phone Number NIKI JUARES documented in this encounter Visit Diagnoses Not on filedocumented in this encounter Care Teams Material Scheduler Relationship Specialty Start Date End Date Mercedez Salmeron APRN PCP - General Family Medicine 01/07/19 documented as of this encounter
--- OUTSIDE RECORDS SUMMARY | 2023-12-28 15:09 | XMS_ITS | Encounter Summary ---
Author Organization [facility] [place] [address] Care Team Providers Care Delivery Consultant Name Role Phone AmeliaTressa APRN Primary Care Provider [phone] Reason for Visit * Reason Comments Skin Check Encounter Details Date Type Department Care Team (Late st Contact Info) Description 04/27/2015 10:45 AM EST Office Visit Dermatology at [place] [address] [facility] [place] [address] Jan Shook MD 580 [facility], [place] [address] History of malignant melanoma Social History Tobacco [...] * Patient Instructions* Idalia Sanon LPN - 04/27/2015 11:31 AM EST Images from the original note were not included. [facility] Skin Cancer Prevention: After Your Visit Your Care Instructions Skin cancer is the abnormal growth of cells in the skin. It usually appears as a growth that changes in color, shape, or size. This can be a sore that does not heal or a change in a wart or a mole. Skin cancer is almost always curable when found early and treated. So it is important to see your doctor if you have any of these changes in your skin. Skin cancer is the most common type of cancer. It often appears on areas of the body that have beenexposed to the sun, such as the head, face, neck, back, chest, or shoulders. Follow-up care is a abdi part of your treatment and safety. Be sure to make and go to all appointments, and call your doctor if you are having problems. It's also a good idea to know your test resultsand keep a list of the medicines you take. How can you care for yourself at home? ?? Wear a wide-brimmed hat and long sleeves and pants if you are going to be outdoors for a long time. ?? Avoid the sun between 10 a.m. and 4 p.m., which is the peak time for UV rays. ?? Wear sunscreen on exposed skin. Make sure the sunscreen blocks ultraviolet rays (both UVA and UVB) and has a sun protection factor (SPF) of at least 15. Use it every day, even when it is cloudy. Some doctors may recommend a higher SPF, such as 30. ?? Do not use tanning booths or sunlamps. ?? Use lip balm or cream that has sun protection factor (SPF) to protect your lips from getting sunburned or getting cold sores. ?? Wear sunglasses that block UV rays. When should you call for help? Watch closely for changes in your health, and be sure to contact your doctor if: ?? You are concerned about any problem areas on your skin. ?? You notice a change in a mole or skin growth. For example: ?? It gets bigger. ?? It develops uneven borders. ?? It gets thicker, raised, or worn down. ?? It changes color. ?? It starts to bleed easily. Where can you learn more? Visit our health information library at http://Onehub/echoechoinfo You can also view health information on [employer], your personal patient account. Log in or sign up today. Enter P392 in the search box to learn more about Skin Cancer Prevention: After Your Visit. ?? [id number] [employer]. Care instructions adapted under license by [employer]. This care instruction is for use with your licensed healthcare professional. If you have questions about a medical condition or this instruction, always ask your healthcare professional. [employer] disclaims any warranty or liability for your use of this information. Content Version: 10.4.239063; Current as of: February 10, 2014 documented in this encounter Progress Notes * Jan Shook MD - 04/27/2015 11:41 AM EST Problem: History of malignant melanoma, central forehead, 0.81-mm Breslow depth, excised August 2014. Zara follows up and has been doing well. Unfortunately, she lost her father on . She has not noted any new pigmented lesions of concern. Physical examination reveals a pleasant, 64-year-old woman who has a well-healed surgical scar on the central forehead; this scar is minimal. She has no recurrent pigmentation there. She has two large solar lentigos on the left lateral cheek, one 2 cm and one 3 cm in diameter; they appear entirely unremarkable. She has a benign examination of the head and neck, chest, back, hands, arms, forearms, thighs, and calves. She has a number of mildly atypical nevi on her back. She has no cervical adenopathy. Assessment and Plan: Status post excision of malignant melanoma, 0.81-mm Breslow depth, central forehead, August 2014. a. Patient reassured about benign examination today. b. I recommended I see her again in another six months for repeat check; we will plan [id number] followup for two years and then once yearly thereafter. COPY: Tressa Saunders A.P.R.N. documented in this encounter Plan of Treatment Upcoming Encounters Date Type Department Care Team (Late st Contact Info) Description 02/19/2024 8:45 AM EST Office Visit Dermatology at [place] [address] [place] [address] Jan Shook MD 580 [facility], [place] [address] documented as of this encounter Visit Diagnoses Diagnosis History of malignant melanoma Personal history of malignant melanoma of skin documented in this encounter Care Teams Delivery Consultant Relationship Specialty Start Date End Date Tressa Saunders APRN PCP - General 02/19/10 01/06/19 documented as of this encounter
--- OUTSIDE RECORDS SUMMARY | 2023-12-28 15:09 | XMS_ITS | Encounter Summary ---
Author Organization [facility] [place] [address] Care Team Providers Care Manager Of Construction Name Role Phone [place] Tressa Estelle OSMAN Primary Care Provider [phone] Reason for Visit * Reason Comments Follow-up Skin Check Encounter Details Date Type Department Care Team (Late st Contact Info) Description 12/26/2016 10:00 AM EDT Office Visit Dermatology at [address] [address] Jan Shook MD [address] [place] [address], [facility] [place] [address] History of malignant melanoma; Other seborrheic keratosis [...] Progress Notes * Jan Shook MD - 12/26/2016 10:00 AM EDT PROBLEM: 1. History of malignant melanoma, central forehead, 0.81-mm Breslow depth, excised 08/2014. 2. Six-month skin checkup. Lilian follows up today by herself. Patient has been doing well, she has had a good summer, has not had much sun. She has not noted any new lesions of concern. Physical examination reveals a pleasant 66-year-old woman who has a well-healed horizontal scar in the central forehead with no evidence of recurrent pigmentation. She has no cervical adenopathy. She continues to have large solar lentigos on the lateral cheeks, left more than right. One is 2 cm and one is 3 cm on the left, and she has one 2 cm on the right lower cheek medially near her chin. She has numerous small junctional melanocytic nevi of the back. She has a benign examination of the head and the neck, the chest, the back, hands, arms, forearms, thighs and the calves, soles of the feet and toe web spaces. A/P: Status post excision of malignant melanoma, 0.81-mm Breslow depth, 08/2014. a. Patient reassured about benign examination today. b. Return to clinic in 1 year for repeat check. Will plan once-yearly visits. c. Continue sun avoidance precautions and continue her monthly self-skin examinations. She knows to let me know if she sees anything of concern in between visits. Cc: Tresas Saunders APRN documented in this encounter Plan of Treatment Upcoming Encounters Date Type Department Care Team (Late st Contact Info) Description 02/19/2024 8:45 AM EST Office Visit Dermatology at [address] [address] Jan Shook MD 580 [facility], [facility] [place] [address] documented as of this encounter Visit Diagnoses Diagnosis History of malignant melanoma Personal history of malignant melanoma of skin Other seborrheic keratosis documented in this encounter Care Teams Manager Of Construction Relationship Specialty Start Date End Date Tressa Saunders APRN PCP - General 02/19/10 01/06/19 documented as of this encounter
--- OUTSIDE RECORDS SUMMARY | 2023-12-28 15:09 | XMS_ITS | Encounter Summary ---
Author Organization [facility] [place] [address] Care Team Providers Care Importer Or Exporter Name Role Phone Mercedez Salmeron SLASHER TENDER Primary Care Provider [phone] Encounter Details Date Type Department Care Team (Late st Contact Info) Description 08/13/2009 Orders [place] [address] Sin Miles MD [facility] DR GASTROENTEROLOGY [place] [address] Social History Tobacco Use Types Packs/Day Years [...] 8:45 AM EST Office Visit Dermatology at [place] 580 [facility] [place] [address] Jan Shook MD 580 [facility], [place] [address] documented as of this encounter Procedures Procedure Name Priority Date/Time Associated Diagnosis Comments SURGICAL PATHOLOGY REPORT Routine 08/13/2009 12:31 PM EDT documented in this encounter Results * Surgical Pathology Report (08/13/2009 12:31 PM EDT) Surgical Pathology Report [id number] ? Location: 4T The signing pathologist has (i) examined the relevant preparation(s) for the specimen(s) and (ii) rendered or confirmed the diagnosis(es). . ?Pathology Surgical Pathology Final Report Clinical Information Specimen Submitted: A - Colon, rectosigmoid Clinical History: 3-mm polyp removed from 20 cm - rectosigmoid Clinical Diagnosis: Screening Gross Description Labeled/Fixative : ? Colon rectosigmoid, formalin. Qty/Size/Weight: ?Single, 0.4 x 0.2 x 0.2 cm. ??Also received is ?a smaller fragment, 0.2 cm in greatest ?diameter. Tissue Description: ?? Marr-pink, polypoid tissue. Sections/Process ing: ??Inked. ??Bisected. (T1) ??vms/PPS Microscopic Description Slides reviewed, microscopic description not recorded. Diagnosis Rectosigmoid colon, polyp: Tubular adenoma. CR-PX 08/15/09 JRP 08/15/09 Verified by: ? Kiera Price MD ?Pathologist ?(Electronic Signature) The attending pathologist whose signature appears on this report has reviewed all diagnostic slides and has edited the gross and/or microscopic portion of the report in rendering the final pathologic diagnosis. NIKI JUARES 08/13/2009 12:3 1 PM EDT Sin Miles MD PATHOLOGY/CYTOLOGY O [facility] documented in this encounter Visit Diagnoses Not on filedocumented in this encounter Care Teams Importer Or Exporter Relationship Specialty Start Date End Date Mercedez Salmeron APRN PCP - General Family Medicine 01/07/19 documented as of this encounter
--- OUTSIDE RECORDS SUMMARY | 2023-12-28 15:09 | XMS_ITS | Encounter Summary ---
Author Organization [facility] [place] [address] Care Team Providers Care Procurement Buyer Name Role Phone Tressa Saunders APRN Primary Care Provider Encounter Details Date Type Department Care Team (Late st Contact Info) Description 10/16/2010 [place] [address] Jenna Rendon RN Social History Tobacco Use Types Packs/Day Years [...] 8:45 AM EST Office Visit Dermatology at [place] [address] [place] [address] Jan Shook MD [address] [facility] [address], [place] [address] documented as of this encounter Visit Diagnoses Not on filedocumented in this encounter Care Teams Procurement Buyer Relationship Specialty Start Date End Date Tressa Saunders APRN PCP - General 02/19/10 01/06/19 documented as of this encounter
--- OUTSIDE RECORDS SUMMARY | 2023-12-28 15:09 | XMS_ITS | Encounter Summary ---
[place] [address] Care Team Providers Care Waterfront Director Name Role Phone Tressa Saunders APRN Primary Care Provider [phone] Reason for Referral * Diagnostic Test (Routine) - Closed Specialty Diagnoses / Procedures Referred By Contac t Referred To Contact Radiology Diagnoses Nonintractable epilepsy without status epilepticus, unspecified epilepsy type Procedures MRI Brain wo Contrast Melisa Nelson MD [facility] [address] [place] [address] [place] [address] Referral ID Status Reason Start Date Expiration Date V isits Requested Visits Authorized [id number] Closed Specialty Service Requested 07/30/2017 09/27/2017 1 1 Reason for Visit * Diagnostic Test (Routine) - Closed Specialty Diagnoses / Procedures Referred By Contac t Referred To Contact Radiology Diagnoses Nonintractable epilepsy without status epilepticus, unspecified epilepsy type Procedures MRI Brain wo Contrast Melisa Nelson MD [facility] [address] [place] [address] [place] [address] Referral ID Status Reason Start Date Expiration Date V isits Requested Visits Authorized [id number] Closed Specialty Service Requested 07/30/2017 09/27/2017 1 1 Encounter Details Date Type Department Care Team (Late st Contact Info) Description 08/11/2017 2:27 PM EDT [place] [address] Melisa Nelson MD [facility] [address] [place] [address] 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 02/14/2022 documented as of this encounter Progress Notes * Girdwood, Adriane R, RN - 08/06/2017 7:53 AM EDT MRI PRE-SEDATION ASSESSMENT NOTE NAME: Sanjuanita Dasilva AGE: 66 y.o. : 1950 [address] [facility] [address] [facility] [address] Female [phone] (home) [phone] (work) Telephone Information: Tressa Saunders, SUBSTANCE ABUSE PREVENTION COORDINATOR None No Known Allergies Date/Time of call: August 06, 2017/7:53 AM/ PREVIOUS MRI SCAN? yes HEIGHT: 5'5 WEIGHT: SCHEDULED SCAN: MRI BRAIN WO CONTRAST [[id number]] (60 min, head first, supine) SUBJECTIVE: patient claustrophobic CAN YOU LAY FLAT? yes AIRWAY ISSUES? no DO YOU HAVE ANY INVOLUNTARY MOVEMENTS? no DO YOU HAVE ANY PAIN? no DO YOU TAKE PAIN MED ON A DAILY BASIS? ASSESSMENT: appropriate for PO sedation PLAN: patient bringing own script Guidelines for MRI Pre-Procedures Laboratory Studies: GFR Date of lab draw 1. Creatinine studies (GFR level needed) within 90 days of scan ??? 70 yo or older if they are getting contrast ??? 50 years and older if they are diabetic and getting contrast ( XXX ) You must have a school bus driver present when you check in. This patient has been informed that they require a school bus driver to drive them home after this procedure. In the absence of a school bus driver, IR will not be able to sedate for your scan. Pt verbalized understanding of these instructions during the pre-procedure education via phone. Yes x Economy of school bus driver: Phone number [phone] PRIOR SCAN DATE/S SEDATION TYPE SUCCESSFUL 09/12/10: MRI L spine unknown 08/11/2017 MRI brain w/o Ativan 0.5mg PO x1 (own meds) yes Revised 04/13/15 documented in this encounter Plan of Treatment Upcoming Encounters Date Type Department Care Team (Late st Contact Info) Description 02/19/2024 8:45 AM EST Office Visit Dermatology at [address] [address] Jan Shook MD [address] [facility] [address], [place] [address] documented as of this encounter Procedures Procedure [...] documented in this encounter Visit Diagnoses Diagnosis 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
--- OUTSIDE RECORDS SUMMARY | 2023-12-28 15:09 | XMS_ITS | Encounter Summary ---
[place] [address] Care Team Providers Care Firmware Developer Name Role Phone Tressa Saunders APRN Primary Care Provider [phone] Encounter Details Date Type Department Care Team (Latest Contact Info) Description 09/15/2017 9:36 PM EDT - 09/15/2017 11:59 PM EDT Hospital [place] [address] Discharge Disposition: Home Social History Tobacco Use [...] 8:45 AM EST Office Visit Dermatology at [place] [address] [place] [address] Jan Shook MD [address] [facility] [address], [place] [address] documented as of this encounter Procedures Procedure Name Priority Date/Time Associated Diagnosis Comments NON-BOX TOE STITCHER FINAL REPORT Routine 09/15/2017 2:02 PM EDT documented in this encounter Results * Non-Public Housing Manager Final Report (09/15/2017 2:02 PM EDT) Diagnosis Discussion [id number] ? Location: [facility] The signing pathologist has (i) examined the relevant preparation(s) for the specimen(s) and (ii) rendered or confirmed the diagnosis(es). . ? Non-Public Housing Manager Final DIAGNOSIS Atypical Electronically signed by: ??Yolis OLIVER PhD, Sudheer Velasco Verified: ??09/18/2017 ?Pathologist Performed at: ??-[facility] Dept. of Pathology, [place], [place] DISCUSSION Thyroid, right (US-guided FNA): Atypia of Undetermined Significance (see note). Low cellularity sample with a predominance of microfollicles. Colloid is scant. Evaluation is limited by obscuring clot. Note: Clinical correlation is recommended. Molecular testing or a repeat aspirate after an appropriate interval of observation might be helpful if clinically indicated. Reference: Sveta LI, Karo CASTILLO. The [place] System for Reporting Thyroid Cytopathology. [place]: [employer]; 2018. CLINICAL INFORMATION Specimen Source : Thyroid, right (US-guided FNA, assisted) Pertinent Clinical Data and Significant Therapy: Thyroid nodule 13mm Rt. lobe. Negative radiation, negative family history. On thyroid supplements for increased TSH Clinical Impression: (not provided) Pertinent Radiologic Findings: (not provided) Gross Description: Received in CytoLyt approximately 10 mL total volume of cloudy, red fluid, with light flecks. Total Preparation: Liquid-Based Prep 1; Diff-Quik 3; Pap Stain 2. Fine Needle Aspiration Immediate Assessment: Evaluation Episode #1 (1 slide): Inadequate for final diagnosis. Mostly blood. Evaluation Episode #2 (1 slide): Rare follicular cells and scant colloid. Evaluation Episode #3 (1 slide): Inadequate for final diagnosis. Borderline adequate, a few follicular clusters, some embedded in blood clot. . CLINICAL INFORMATION Immediate Assessment by: Nikolas Castillo MD (Cytopathologist) . I have personally examined the cytologic slides. My interpretation is as stated. Note: Immediate Assessment results are preliminary assessments of adequacy and diagnosis. See final diagnostic comments for completed interpretation. 09/18/2017 9:35 AM EDT [facility] THYROID STRUCTURE / Unknown 09/15/2017 2:02 PM EDT 09/15/2017 2:02 PM EDT Rishabh Zimmerman DO PATHOLOGY/CYT OLOGY ORDERABLES [facility] [place] [address] documented in this encounter Visit Diagnoses Not on filedocumented in this encounter Care Teams Firmware Developer Relationship Specialty Start Date End Date Tressa Saunders APRN PCP - General 02/19/10 01/06/19 documented as of this encounter
--- OUTSIDE RECORDS SUMMARY | 2023-12-28 15:09 | XMS_ITS | Encounter Summary ---
Author Organization [facility] Address [place] [address] Care Team Providers Care Load Out Worker Name Role Phone Tressa Saunders APRN Primary Care Provider Encounter Details Date Type Department Care Team (Latest Contact Info) Description 10/10/2010 8:45 AM EDT - 10/10/2010 11:59 PM EDT Hospital Encounter XRay at [address] [place] [address] CLIN[address], DR MARTINEZ Discharge Disposition: Home Social History Tobacco Use [...] 8:45 AM EST Office Visit Dermatology at [place] [address] [facility] [place] [address] Jan Shook MD [address] [facility] [address], [place] [address] documented as of this encounter Procedures Procedure Name Priority Date/Time Associated Diagnosis Comments FILM LIBRARY STORAGE ONLY PAIN CLINIC C ARM Routine 10/10/2010 8:45 AM EDT documented in this encounter Results * FILM LIBRARY-STORAGE ONLY PAIN CLINIC C-ARM (10/10/2010 8:45 AM EDT) 10/10/2010 8:45 AM EDT Narrative RAD - 08/02/2013 7:48 PM EDT This is a non-reportable exam. Procedure Note Oliver Coley - 08/02/2013 This is a non-reportable exam. Margo Maynard APRN [employer]elle FILM LIBRARY OR DERABLES [facility] [address] [facility] [place] [address] documented in this encounter Visit Diagnoses Not on filedocumented in this encounter Care Teams Load Out Worker Relationship Specialty Start Date End Date Tressa Saunders APRN PCP - General 02/19/10 01/06/19 documented as of this encounter
--- OUTSIDE RECORDS SUMMARY | 2023-12-28 15:09 | XMS_ITS | Encounter Summary ---
Author Organization [facility] [place] [address] Care Team Providers Care Board Mill Supervisor Name Role Phone Tressa Saunders APRN Primary Care Provider [phone] Reason for Referral * Consultation (Routine) - Closed Specialty Diagnoses / Procedures Referred By Contac t Referred To Contact Pain Management Diagnoses Foraminal stenosis of lumbar region aMrgo Maynard, [facility] [place] [address] [facility] [address] [place] [phone] Referral ID Status Reason Start Date Expiration Date V isits Requested Visits Authorized [id number] Closed Consult Only 09/12/2010 03/11/2011 1 1 Reason for Visit * Reason Comments Low Back Pain Other follow to MRI Encounter Details Date Type Department Care Team (Late st Contact Info) Description 09/12/2010 3:00 PM EDT [place] [phone] CLINIC, Margo Lawson, [facility] [place] [address] Foraminal stenosis of lumbar region (Primary Dx) Discharge Disposition: Home Social History Tobacco Use [...] as of this encounter Progress Notes * Margo Maynard, GOLD MARKER - 09/12/2010 3:39 PM EDT Subjective: Sanjuanita is a pleasant 59-year-old whom I seen for right-sided low back pain aching quality with overlay down the right posterior leg to the knee. She has been seen today in followup for her MRI done also today. Her right-sided low back pain is on the medicine present for a long time andhas not particularly troublesome just an ache. And her right posterior leg pain which is troublesome to her. She has had a prior surgery in her lumbar spine she believes at L4-5 L5-S1. Objective: The patient's MRI demonstrates facet arthropathy particularly the lower lumbar levels ofthe spine and significant disc space narrowing at L5-S1, where it appears on the right that the L5 nerve root may be impinged to my eye. Her x-ray done at after her last appointment also shows significant disc space narrowing at L5-S1, facet arthropathy in the lower lumbar spine, and SI joint sclerosis right greater than left. Assessment: The patient and I discussed that she does seem to have some SI joint sclerosis which might be causing her right-sided dull ache that is manageable to her. I also think that her right sided leg pain it could be either from nerve root impingement, facet arthropathy, or possibly even as ananterior osteophyte associated with the SI joint sclerosis. Plan: We have discussed and agreed upon the following plan she is going to have a transforaminal epidural steroid injection at L5-S1 on the right we discussed the risks and benefits and she will followup with me 2 weeks after that injection. If that doesn't seem to help her we will consider medial branch blocks and radiofrequency and follow up as appropriate again afterwards. Finally if neither of these seem to significantly help her, I would consider a CT of the area to look for any impingement of the sciatic nerve anterior of the SI joint. Greater than 50% of this 40 minute visit was spent in face to face discussion of present symptoms and future plan of care. documented in this encounter Miscellaneous Notes * Miscellaneous - Phillip, Accounts Receivable Associate - 09/25/2010 8:53 AM EDT documented in this encounter Plan of Treatment Upcoming Encounters Date Type Department Care Team (Late st Contact Info) Description 02/19/2024 8:45 AM EST Office Visit Dermatology at [place] [address] [facility] [place] [address] Jan Shook MD [address], [place] [address] Scheduled Referrals Name Type Priority Associated Diagnoses Orde r Schedule REFERRAL TO PAIN CLINIC Outpatient Referral Routine Foraminal stenosis of lumbar region Ordered: 09/12/2010 documented as of this encounter Visit Diagnoses Diagnosis Foraminal stenosis of lumbar region- Primary Spinal stenosis, lumbar region, without neurogenic claudication documented in this encounter Care Teams Board Mill Supervisor Relationship Specialty Start Date End Date Tressa Saunders APRN PCP - General 02/19/10 01/06/19 documented as of this encounter
--- OUTSIDE RECORDS SUMMARY | 2023-12-28 15:09 | XMS_ITS | Encounter Summary ---
Author Organization [facility] [place] [address] Care Team Providers Care Director Cardiovascular Name Role Phone Tressa Saunders APRN Primary Care Provider [phone] Reason for Visit * Reason Comments Right Leg Pain sciatic pain Encounter Details Date Type Department Care Team (Late st Contact Info) Description 08/29/2010 2:20 PM EDT [place] [address] Margo Maynard MAIL FORWARDING SYSTEM MARKUP CLERK [facility] [place] [address] Leg pain, right (Primary Dx) Discharge Disposition: Home Social History [...] Sign Reading Time Taken Comments Blood Pressure 128/80 08/29/2010 2:38 PM EDT Pulse - - Temperature - - Respiratory Rate - - Oxygen Saturation - - Inhaled Oxygen Concentration - - Weight 70.8 kg (156 lb) 08/29/2010 2:38 PM EDT Height 165.1 cm (5' 5) 08/29/2010 2:38 PM EDT Body Mass Index 25.96 08/29/2010 2:38 PM EDT documented in this encounter Progress Notes * Margo Maynard APRN - 08/29/2010 3:56 PM EDT PRIMARY CARE PROVIDER: Tressa Saunders APRN SUBJECTIVE: Ms. Sanjuanita Dasilva is a pleasant female, who is a devotee of used clothing stores, who reports that she has had a chief complaint of right-sided leg pain that started around February. She has posterior leg pain down to the posterior aspect of the knee and not below the knee. No associated numbness, tingling, or weakness. She has had two prior back surgeries done by Dr. Rocha in 2007 for similar complaints, almost identical only on the left hand side to an L5-S1 disk. Her symptoms are better with medications, usually ibuprofen or tramadol, which brings it down to 2 or 3, but when she is not on medications, it is up to 8.5 and actually nauseating in quality. It is worse with walking or sitting. She is sleeping well. She has no gait or balance disturbance. She exercises using a StaMoviepilot-type device and walks and then tries to exercise at least 30 minutes a day. REVIEW OF SYSTEMS: Review of systems is negative for GI, , or constitutional symptoms. Prior to her surgeries, she had two epidurals, the first helped for quite a few months and the second only helped for a few weeks. She did do physical therapy, but she has not done that since the beginning of this incident. OBJECTIVE: This is a pleasant well-groomed female, age 59. Shoulders, hips, and knees are level to inspection. She has a stated height of 5 feet 5 inches and stated weight of 156. She has a well-healed surgical scar of the lower lumbar spine, very small. She is nontender to palpation. She has no buttock tenderness. Gait is nonantalgic. She can walk on her heels and toes. She can flex, extend, and laterally bend. There is no dural tension. Negative dural tension signs. Negative LAZARA maneuver. Negative straight leg raises. Palpable distal pulses. IMAGING: There are no new images of her back. ASSESSMENT: She has symptoms of recurrent disk herniation versus facet arthropathy. We discussed that typically. I would consider this likely to be more facet mediated because of distribution although what she is describing making it worse seems to be more disky, and given that her symptoms prior to her disk surgeries were of leg pain above the knee, I think it is reasonable to do both the MRI and x-ray. PLAN: She will have an MRI of her lumbar spine with and without gadolinium. She will also have an x-ray today before she leaves. She will follow up with me afterwards and we can discuss whether or not she would like to try any injections if she had a recurrent disk. I would consider an epidural steroid injection if it appears that this is facet mediated. I reviewed medial branch blocks and radiofrequency with her and would be happy to make arrangements to have that happen. If that is a recurrent disk herniation, I would be happy to see and send her back to Dr. Rocha. All questions were answered. Greater than 50% of this 45-minute visit was spent in [id number] discussion of present symptoms and future plan of care. CC: Tressa Saunders APRN Family Medicine [address] [place] [address] documented in this encounter Plan of Treatment Upcoming Encounters Date Type Department Care Team (Late st Contact Info) Description 02/19/2024 8:45 AM EST Office Visit Dermatology at [place] [address] [facility] [place] [phone] Jan Shook MD [address], [place] [address] documented as of this encounter Results * XR lumbar spine 2 or 3 views (08/29/2010 4:09 PM EDT) Anatomical Region Laterality Modality L-spine N/A Radiographic Stefania ging 08/29/2010 4:09 PM EDT Impressions 08/31/2010 3:48 PM EDT IMPRESSION: ?? Lower lumbar spine facet arthropathy. ?? Degenerative disc disease at L5-S1 level. Narrative 08/31/2010 3:48 PM EDT LUMBAR SPINE, TWO VIEWS: ?? HISTORY: ??Right leg pain and back. ??Two prior back surgeries. ??Recurrent disc versus facet arthropathy. ?? FINDINGS: ??There are five dyp-uuk-gppqwhm lumbar-type vertebral bodies. ?? Diffuse lower lumbar spine facet arthropathy is accompanied by narrowed L5-S1 disc space. ??There is minimal retrolisthesis of L4 on L5. 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 ??The pedicles are intact. ?? Procedure Note Hina Rick MD - 08/31/2010 LUMBAR SPINE, TWO VIEWS: HISTORY: Right leg pain and back. Two prior back surgeries. Recurrentdisc versus facet arthropathy. FINDINGS: There are five phy-bph-bkgryhn lumbar-type vertebral bodies. Diffuse lower lumbar spine facet arthropathy is accompanied by narrowedL5-S1 disc space. There is minimal retrolisthesis of L4 on L5. Osteoarthritisof both SI joints is characterized by subchondral sclerosis and osteophyte formation and subchondral cystic change. The pedicles are intact. IMPRESSION IMPRESSION: Lower lumbar spine facet arthropathy. Degenerative disc disease at L5-S1 level. Geovanni Mead MD IMG DX ORDERABLES documented in this encounter Visit Diagnoses Diagnosis Leg pain, right- Primary Pain in limb Leg pain, right Pain in limb documented in this encounter Care Teams Director Cardiovascular Relationship Specialty Start Date End Date Tressa Saunders APRN PCP - General 02/19/10 01/06/19 documented as of this encounter
--- OUTSIDE RECORDS SUMMARY | 2023-12-28 15:09 | XMS_ITS | Encounter Summary ---
Author Organization [facility] [place] [address] Care Team Providers Care Band Log Mill And Carriage Operator Name Role Phone Tressa Saunders APRN Primary Care Provider [phone] Encounter Details Date Type Department Care Team (Latest Contact Info) Description 09/12/2010 10:17 AM EDT - 09/12/2010 11:59 PM EDT Hospital [place] [address] Leg pain, right Social History Tobacco Use Types Packs/Day Years [...] Sign Reading Time Taken Comments Blood Pressure - - Pulse - - Temperature - - Respiratory Rate - - Oxygen Saturation - - Inhaled Oxygen Concentration - - Weight 70.8 kg (156 lb) 09/12/2010 10:43 AM EDT Height - - Body Mass Index 25.96 08/29/2010 2:38 PM EDT documented in this encounter Medications at Time of Discharge [...] 8:45 AM EST Office Visit Dermatology at [place] [address] [facility] [place] [address] Jan Shook MD [address], [place] [address] documented as of this encounter Procedures Procedure Name Priority Date/Time Associated Diagnosis Comments MRI LUMBAR SPINE WITH/WO CONTRAST Routine 09/12/2010 12:12 PM EDT Pain in limb documented in this encounter Results * MRI LUMBAR SPINE WITH/WO CONTRAST (09/12/2010 12:12 PM EDT) Anatomical Region Laterality Modality L-spine Magnetic Resonan ce 09/12/2010 12:1 2 PM EDT Impressions 2010 11:02 AM EDT IMPRESSION: Degenerative changes and facet arthropathy most pronounced at L5-S1. ??There is no evidence of recurrent disc herniation or bulky ??scar tissue. ?? Film and interpretation reviewed by the attending Narrative 2010 11:02 AM EDT MR LUMBAR SPINE WITH AND WITHOUT CONTRAST: ?? HISTORY: Two prior L5-S1 left disc surgeries, with right leg pain. ??Question recurrent HNP versus facet arthropathy. ?? TECHNIQUE: MR of the lumbar spine performed prior to and following intravenous administration of 15 mL Magnevist. ?? CONTRAST: 15 mL Magnevist. COMPARISON: MR, 12/15/07. ?? FINDINGS: Overall alignment of the lumbar spine is normal. ??Visualized retroperitoneum is unremarkable. ??Normal appearing conus terminates at the L2 level. ?? FINDINGS AT SPECIFIC LEVELS: L1-L2: ??No central canal or neural foraminal narrowing. ?? L2-L3: ??No central canal or neural foraminal narrowing. ??There are bilateral perirenal cysts present. ?? L3-L4: ??There is mild disc bulging present, with mild caudal neural foraminal narrowing bilaterally. ??No significant central canal narrowing is present. ?? There is mild facet arthropathy. ?? L4-L5: ??There is facet arthropathy and disc bulge, which combine to cause mild caudal neural foraminal narrowing bilaterally. ??There are small-appearing neural cysts present. ??No central canal narrowing is seen. ?? L5-S1: ??There is interval loss of disc height compared to the prior study. ??The large disc extrusion on the left is no longer present. ??There is bilateral facet arthropathy present. ??There is an asymmetric disc bulge larger on the left; this did not appear to displace the exiting nerve root. ??No recurrent disc or enhancing granulation tissue is present. ??Perineural cyst in the left sacrum is unchanged compared to the prior exam. ?? Procedure Note Tam Zabala MD - 2010 MR LUMBAR SPINE WITH AND WITHOUT CONTRAST: HISTORY: Two prior L5-S1 left disc surgeries, with right leg pain.Question recurrent HNP versus facet arthropathy. TECHNIQUE: MR of the lumbar spine performed prior to and followingintravenous administration of 15 mL Magnevist. CONTRAST: 15 mL Magnevist. COMPARISON: MR, 12/15/07. FINDINGS: Overall alignment of the lumbar spine is normal. Visualized retroperitoneum is unremarkable. Normal appearing conus terminates at theL2 level. FINDINGS AT SPECIFIC LEVELS: L1-L2: No central canal or neural foraminal narrowing. L2-L3: No central canal or neural foraminal narrowing. There arebilateral perirenal cysts present. L3-L4: There is mild disc bulging present, with mild caudal neuralforaminal narrowing bilaterally. No significant central canal narrowing is present. There is mild facet arthropathy. L4-L5: There is facet arthropathy and disc bulge, which combine to causemild caudal neural foraminal narrowing bilaterally. There are small-appearing neural cysts present. No central canal narrowing is seen. L5-S1: There is interval loss of disc height compared to the prior study.The large disc extrusion on the left is no longer present. There is bilateral facet arthropathy present. There is an asymmetric disc bulge larger onthe left; this did not appear to displace the exiting nerve root. Norecurrent disc or enhancing granulation tissue is present. Perineural cyst in theleft sacrum is unchanged compared to the prior exam. IMPRESSION IMPRESSION: Degenerative changes and facet arthropathy most pronounced at L5-S1.There is no evidence of recurrent disc herniation or bulky scar tissue. Film and interpretation reviewed by the attending Margo Maynard BOTTLE BLOWING MACHINE TENDER IMG MRI ORDERABLES documented in this encounter Visit Diagnoses Diagnosis Leg pain, right Pain in limb documented in this encounter Administered Medications Inactive Administered Medications - up to 3 most recent administrations Medication Order MAR Action Action Date Dose Rate Site gadopentetate dimeglumine (MAGNEVIST) 10 mmol/20 mL (469.01 mg/mL) injection 14.16 mL 14.16 mL (0.2 mL/kg/dose ? 70.8 kg), Intravenous, ONCE PRN, 1 dose, Starting on Charleen 09/12/10 at 1043, Until Charleen 6/12/02 at 1159, Per Protocol, Routine Given 09/12/2010 11:59 AM EDT 15 mLs documented in this encounter Care Teams Band Log Mill And Carriage Operator Relationship Specialty Start Date End Date Tressa Saunders APRN PCP - General 02/19/10 01/06/19 documented as of this encounter
--- OUTSIDE RECORDS SUMMARY | 2023-12-28 15:09 | XMS_ITS | Encounter Summary ---
Author Organization [facility] [place] [address] Care Team Providers Care Technical Writer And Editor Name Role Phone Mercedez Salmeron APRN Primary Care Provider [phone] Encounter Details Date Type Department Care Team (Latest Contact Info) Description 02/14/2022 Travel Social History Tobacco Use Types Packs/Day [...] 8:45 AM EST Office Visit Dermatology at [address] [place] [phone] Jan Shook MD [address] [facility] [place] [address] documented as of this encounter Visit Diagnoses Not on filedocumented in this encounter Care Teams Technical Writer And Editor Relationship Specialty Start Date End Date Mercedez Salmeron APRN PCP - General Family Medicine 01/07/19 documented as of this encounter
--- OUTSIDE RECORDS SUMMARY | 2023-12-28 15:09 | XMS_ITS | Encounter Summary ---
Author Organization [facility] Address [facility] [place] [address] Care Team Providers Care Pot Builder Name Role Phone Tressa Saunders APRN Primary Care Provider [phone] Encounter Details Date Type Department Care Team (Latest Contact Info) Description 08/29/2010 4:00 PM EDT - 08/29/2010 11:59 PM EDT Hospital Encounter XRay at [address] [place] [address] Leg pain, right Social History Tobacco Use [...] 8:45 AM EST Office Visit Dermatology at [place] [address] [place] [address] Jan Shook MD [address], [place] [address] documented as of this encounter Procedures Procedure Name Priority Date/Time Associated Diagnosis Comments XR LUMBAR SPINE 2 OR 3 VIEWS Routine 08/29/2010 4:09 PM EDT Leg pain, right documented in this encounter Results * XR lumbar spine [...] facet arthropathy. ?? FINDINGS: ??There are five feq-ito-edixzjk lumbar-type vertebral bodies. ?? Diffuse lower lumbar [...] versus facet arthropathy. FINDINGS: There are five gen-nyf-erhebrr lumbar-type vertebral bodies. Diffuse lower lumbar spine [...] limb documented in this encounter Care Teams Pot Builder Relationship Specialty Start Date End Date Tressa Saunders APRN PCP - General 02/19/10 01/06/19 documented as of this encounter
--- OUTSIDE RECORDS SUMMARY | 2023-12-28 15:09 | XMS_ITS | Encounter Summary ---
Author Organization [facility] [place] [address] Care Team Providers Care Receiving Associate Store Name Role Phone HamiltonTressa APRN Primary Care Provider [phone] Reason for Visit * Reason Comments Skin Check Encounter Details Date Type Department Care Team (Late st Contact Info) Description 08/24/2014 8:45 AM EDT Office Visit Dermatology at [address] [place] [address] Jan Shook MD [address] [facility], [place] [address] Other seborrheic keratosis Discharge Disposition: Home Social History Tobacco Use [...] * Patient Instructions* Idalia Sanon LPN - 08/24/2014 9:14 AM EDT [facility] Actinic Keratosis: After Your Visit Your Care Instructions Actinic keratosis is a skin growth caused by sun damage. It can turn into skin cancer, but this isn't common. Actinic keratoses, also called solar keratoses, are small red, brown, or skin-colored scaly patches. They are most common on the face, neck, hands, and forearms. Your doctor can remove these growths by freezing or scraping them off or by putting medicines on them. Follow-up care is a abdi part of your treatment and safety. Be sure to make and go to all appointments, and call your doctor if you are having problems. It's also a good idea to know your test resultsand keep a list of the medicines you take. How can you care for yourself at home? ?? If your doctor removes the growth, clean the area with soap and water 2 times a day unless your doctor gives you different instructions. Don't use hydrogen peroxide or alcohol, which can slow healing. ?? You may cover the wound with a thin layer of petroleum jelly, such as Vaseline, and a nonstick bandage. To prevent actinic keratosis ?? Always wear sunscreen on exposed skin. Make sure the sunscreen blocks ultraviolet rays (both UVAand UVB) and has a sun protection factor (SPF) of at least 15. Use it every day, even when it is cloudy. Some doctors may recommend a higher SPF, such as 30. ?? Wear long sleeves, a hat, and pants if you are going to be outdoors for a long time. ?? Avoid the sun between 10 a.m. and 4 p.m., the peak time for UV rays. ?? Do not use tanning booths or sunlamps. When should you call for help? Watch closely for changes in your health, and be sure to contact your doctor if: ?? The areas that were treated are red, drain pus, or have red streaks leading from them. ?? You see other growths that do not go away. ?? You do not get better as expected. Where can you learn more? Visit our health information library at [email or web address] You can also view health information on [employer], your personal patient account. Log in or sign up today. Enter L364 in the search box to learn more about Actinic Keratosis: After Your Visit. ?? [id number] [employer]. Care instructions adapted under license by [facility]. This care instruction is for use with your licensed healthcare professional. If you have questions about a medical condition or this instruction, always ask your healthcare professional. [employer] disclaims any warranty or liability for your use of this information. Content Version: 10.4.515858; Current as of: October 27, 2013 documented in this encounter Progress Notes * Jan Shook MD - 08/24/2014 9:28 AM EDT Problem: Skin check. Sanjuanita is a 63-year-old woman who grew up in [place]. 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 She had a lot of sun and sun exposure over the years. She would like to have a number of skin lesions checked. She has noted a central forehead pigmented lesion developing over the last four years, and it has been spreading with some lateral extension recently. The patient is referred today for evaluation by Tressa Saunders N.P. Physical examination reveals a 6-mm round, dark brown papule with some np brown lateral extension on the mid central forehead. It appears to have pseudocystic openings present over its surface. It appears to be consistent with a seborrheic keratosis, and certainly an atypical overall appearance. Otherwise examination of the head and the neck reveals just solar lentigos present on the lateral cheeks bilaterally, some benign nevi, and a small follicular cyst of the upper central back, and a benign examination of the chest, the back, hands, arms, thighs, and calves. Assessment and Plan: Seborrheic keratosis, some atypical appearance, central forehead. a. After obtaining informed consent site was anesthetized and a shave biopsy utilized to remove this. After shave biopsy, site measured 1.0 cm in diameter. This shave did remove the entire lesion. b. Patient reassured about remainder of benign skin examination. c. We will notify the patient of biopsy results in one week. Wound care instructions and supplies given. d. Encouraged sun avoidance precautions, which the patient is now following. Return to clinic p.rMilan. documented in this encounter Plan of Treatment Upcoming Encounters Date Type Department Care Team (Late st Contact Info) Description 02/19/2024 8:45 AM EST Office Visit Dermatology at [place] [address] [facility] [place] [address] Jan Shook MD [address] [facility], [place] [address] documented as of this encounter Visit Diagnoses Diagnosis Other seborrheic keratosis documented in this encounter Care Teams Receiving Associate Store Relationship Specialty Start Date End Date Tressa Saunders APRN PCP - General 02/19/10 01/06/19 documented as of this encounter
--- OUTSIDE RECORDS SUMMARY | 2023-12-28 15:09 | XMS_ITS | Encounter Summary ---
Author Organization [facility] [place] [address] Care Team Providers Care Manager Heart Failure Name Role Phone Mercedez Salmeron Deric OSMAN Primary Care Provider [phone] Reason for Visit * Reason Comments Annual Exam Encounter Details Date Type Department Care Team (Late st Contact Info) Description 02/17/2023 8:30 AM EST Office Visit Dermatology at [address] [place] [address] Jan Shook MD [address] [facility], [place] [address] History of malignant melanoma; Other seborrheic keratosis; Milium Social History Tobacco Use Types Packs/Day Years [...] Progress Notes * Jan Shook MD - 02/17/2023 8:30 AM EST Problem: 1. Yearly skin checkup 2. History of malignant melanoma, central forehead, 0.81 mm Breslow depth excised August 2014 Lilian follows up today for her yearly skin checkup. She is doing well. Physical examination reveals a pleasant 72-year-old woman who has a benign examination of the forehead melanoma excision site. She has several milia present on the left and right methodist and above herright eyebrow. She has a [...] 8:45 AM EST Office Visit Dermatology at [place] [address] [place] [id number] Jan Shook MD [address] [facility], [place] [address] documented as of this encounter Visit Diagnoses Diagnosis History of malignant melanoma Personal history of malignant melanoma of skin Other seborrheic keratosis Milium Sebaceous cyst documented in this encounter Care Teams Manager Heart Failure Relationship Specialty Start Date End Date Mercedez Salmeron APRN PCP - General Family Medicine 01/07/19 documented as of this encounter
--- OUTSIDE RECORDS SUMMARY | 2023-12-28 15:09 | XMS_ITS | Encounter Summary ---
[facility] [place] [address] Care Team Providers Care Children'S Service Worker Name Role Phone Tressa Saunders APRN Primary Care Provider [phone] Encounter Details Date Type Department Care Team (Latest Contact Info) Description 12/15/2017 2:36 PM EDT - 12/15/2017 11:59 PM EDT Hospital [place] [address] Discharge Disposition: Home Social History Tobacco Use [...] Sig Dispensed Refills Start Date End Date hydroCHLOROthiazide (HYDRODIURIL) 12.5 mg Tablet Taking 6.25 mg 11/09/2017 LORazepam (ATIVAN) 0.5 mg Tablet 03/14/2016 Calcium Carbonate-Vit D3-Min 600-400 mg-unit Tab Take 1 tablet by mouth daily. ibuprofen (Advil) 200 mg TabletIndications:pain Take 400 mg by mouth 2 times daily. Indications: Pain 08/29/2010 atorvastatin (LIPITOR) 20 mg Tablet 11/09/2017 02/06/2020 levothyroxine (Synthroid) 50 mcg Tablet Take 50 [...] 8:45 AM EST Office Visit Dermatology at [place] [address] [facility] [place] [address] Jan Shook MD [address] [facility] [address], [place] [address] documented as of this encounter Procedures Procedure Name Priority Date/Time Associated Diagnosis Comments NON-POT FISHER FINAL REPORT Routine 12/15/2017 3:42 PM EDT documented in this encounter Results * Non-Senior Portfolio Analyst Final Report (12/15/2017 3:42 PM EDT) Diagnosis Discussion ? Location: [facility] The signing pathologist has (i) examined the relevant preparation(s) for the specimen(s) and (ii) rendered or confirmed the diagnosis(es). . ? Addendum ADDENDUM DISCUSSION Test: ? ThyGenX Thyroid Oncogene Panel [facility] Case: ? [id number] Performing Lab: ? [employer] Performing Lab Case: ?[id number] Reported by: Luz Ingram MD Date reported: ? 01/04/2018 For the full text of the ThyGenX report, please refer to Non- Documentation Pathology in the electronic health record (eDH). Electronically signed by: ??Shaun Daugherty MD Verified: ??01/12/2018 ?Cytopathologist Performed at: ??-[facility] Dept. of Pathology, [place], [place] ? Non-Senior Portfolio Analyst Final DIAGNOSIS Atypical Electronically signed by: ??Shaun Daugherty MD Verified: ??12/17/2017 ?Cytopathologist Performed at: ??-[facility] Dept. of Pathology, [place], [place] DISCUSSION Thyroid: anterior right mid lobe (US-guided FNA) - Atypia of Undetermined Significance (see note). Low cellularity aspirate in which most of the follicular epithelial cells display some Hurthle cell features. Colloid is not conspicuous. A few lymphocytes are noted. Note: Clinical correlation is recommended. A sample is being sent for molecular testing. Reference: Sveta LI, Karo ES. The [employer] System for Reporting Thyroid Cytopathology. Mcminn: Encinas; 2018. CLINICAL INFORMATION Specimen Source : Thyroid: anterior right mid lobe (US-guided FNA - assisted) Pertinent Clinical Data and Significant Therapy: Thyroid nodule on synthroid w hypothyroidism unchanged in size over 4 months. 1.2 cm hypoechoic. Clinical Impression: Dominant right thyroid nodule, previous biopsy showed atypia of questionable significance. Pertinent Radiologic Findings: (not provided) Gross Description: . CLINICAL INFORMATION Received in CytoLyt approximately 10 mL total volume of clear, pink fluid. Total Preparation: Liquid-Based Prep 1; Diff-Quik 2; Pap Stain 2. A separate sample was received for potential molecular testing. 01/12/2018 5:[address] [facility] THYROID STRUCTURE / Unknown 12/15/2017 3:42 PM EDT 12/15/2017 3:42 PM EDT Rishabh Zimmerman DO PATHOLOGY/[place] [address] documented in this encounter Visit Diagnoses Not on filedocumented in this encounter Care Teams Children'S Service Worker Relationship Specialty Start Date End Date Tressa Saunders, DWASON PCP - General 02/19/10 01/06/19 documented as of this encounter
[2023-12-28 15:55] LABS: Hemoglobin A1C 4.6 % (<5.7)
[2023-12-28 16:44] LABS: ALT 25 U/L (14-59); AST 26 U/L (15-37); Alkaline Phosphatase 99 U/L (46-116); BUN 12 mg/dL (7-18); Bilirubin, Total 0.54 mg/dL (0.2-1.0); CREATININE 0.8 mg/dL (0.55-1.02); Calcium 9.4 mg/dL (8.5-10.1); Calculated LDL 116 mg/dL (<100); Chloride 103 mmol/L (98-107); Cholesterol 239 mg/dL (<200); Estimated GFR 78.72 (mL/min/1.73m2); Glucose 85 mg/dL (74-106); HDL Cholesterol 113 mg/dL (40-60); Potassium 3.5 mmol/L (3.5-5.1); Sodium 140 mmol/L (136-145); TSH 1.55 uIU/Ml (0.36-3.74); Total Protein 7.2 g/dL (6.4-8.2); Triglyceride 51 mg/dL (<150); Vitamin D 25 Total 43.8 ng/mL (30-100)
== END 2023-12-28 15:06 | disposition home or self-care (01) ==
LOC: NCHCN 15:05
PROVIDERS: PCP Nurse Practitioner Family; Visit Provider Nurse Practitioner Family
DX: E78.5 Hyperlipidemia, unspecified (principal); Z00.00 Encounter for general adult medical examination without abnormal findings
CPT/HCPCS: 80053; 80061; 82306; 83036; 84443

== ENCOUNTER → 2024-11-03 10:11 | Outpatient (BNVA) | payer MEDICARE, SELFPAY | PROVIDERS: Visit Provider Psychiatry & Neurology Neurology | DX: G40.209 Localization-related (focal) (partial) symptomatic epilepsy and epileptic syndromes with complex partial seizures, not intractable, without status epilepticus (principal); I10 Essential (primary) hypertension | CPT/HCPCS: 99213 ==

== ENCOUNTER 2025-01-02 15:44 | Outpatient (REF) | payer MEDICARE, SELFPAY ==
[2025-01-02 16:58] LABS: HCT 40.0 % (36.0-46.0); HGB 13.2 g/dL (11.2-15.7); MCH 30.3 pg (27.0-33.0); MCHC 33.0 % (32.0-36.0); MCV 92 fL (80-95); MPV 10.8 fL (8.0-11.0); Platelet Count 270 10^3/uL (130-400); RBC 4.35 10^6/uL (3.93-5.22); RDW 12.4 % (11.7-14.6); RDW-SD 41.9 fL; WBC 6.22 10^3/uL (4.4-10.8)
[2025-01-02 17:24] LABS: ALT 24 U/L (14-59); AST 22 U/L (15-37); Albumin 3.9 g/dL (3.4-5.0); Alkaline Phosphatase 90 U/L (46-116); Anion Gap 12.0 mmol/L (3-11); BUN 9 mg/dL (7-18); Bilirubin, Total 0.8 mg/dL (0.2-1.0); CO2 26.0 mmol/L (21.0-32.0); Calcium 8.9 mg/dL (8.5-10.1); Chloride 104 mmol/L (98-107); Estimated GFR 78.24 (mL/min/1.73m2); Glucose 86 mg/dL (74-106); Potassium 3.8 mmol/L (3.5-5.1); Sodium 142 mmol/L (136-145); TSH 1.02 uIU/mL (0.36-3.74); Total Protein 6.5 g/dL (6.4-8.2)
== END 2025-01-02 15:45 | disposition home or self-care (01) ==
LOC: NCHCN 15:44
PROVIDERS: Visit Provider Nurse Practitioner Family
DX: E03.9 Hypothyroidism, unspecified (principal); R53.81 Other malaise; R53.83 Other fatigue; E78.5 Hyperlipidemia, unspecified
CPT/HCPCS: 80053; 85027; 84443